=== PATIENT | male | born 1940 | race Caucasian/White ===

== ENCOUNTER 2020-01-30 07:55 | Day surgery (SDC) | payer OTHER ==
--- NOTE | 2020-01-29 10:01 | RAD REPORT ---
EXAM DESCRIPTION: RAD - Chest Pa And Lat (2 Views) - 01/29/2020 9:43 am CLINICAL HISTORY: PRE OP Chest pain. COMPARISON: Chest Single View dated 04/25/2016; CHEST PA AND LAT 2 VIEW dated 12/27/2014; CHEST PA AN D LAT 2 VIEW dated 09/17/2014; CHEST PA AND LAT 2 VIEW dated 03/05/2013 FINDINGS: The lungs are emphysematous but clear. The heart is upper limit of normal in size. No disp laced fractures. Cervical hardware plate. IMPRESSION: COPD.
[2020-01-29 10:25] LABS: Absolute Lymphocytes (CBC) 2.1 K/uL (0.7-4.9); Basophils % 0.5 % (0-1.3); Hematocrit 45.2 % (39.6-49.0); MPV 7.9 fL (7.6-11.3); RBC Red Blood Cell Count 4.86 M/uL (4.33-5.43)
[2020-01-29 10:39] LABS: Potassium 3.9 mmol/L (3.5-5.1)
--- NOTE | 2020-01-29 19:13 | EKG ---
Test Date: 2020-01-29 Test Time: 09:26:20 Practice Or Student Teacher: DIXIE MEASUREMENT RESULTS: Intervals: Rate: 65 CA: 164 QRSD: 94 QT: 428 QTc: 445 [place]: P: 72 CA: 164 QRS: 53 T: 118 INTERPRETIVE STATEMENTS: Sinus rhythm with frequent premature ventricular complexes Nonspecific ST and T wave abnormality Abnormal ECG Compared to ECG 04/26/2016 08:11:06 Ventricular premature complex(es) now present Sinus bradycardia no longer present Prolonged QT interval no longer present ST (T wave) deviation still present Electronically Signed On 01-29-20 19:12:39 ELECTRICAL MANUFACTURING TECHNICIAN by Juan Ramon Cueto
--- OUTSIDE RECORDS SUMMARY | 2020-01-30 07:58 | XMS REPORT | Continuity of Care Document ---
:1940 Author Organization [facility] t Address [address] [place] [address] Care Team Providers Name Role Phone Unavailable Unavailable Unavailable Problems This patient has no known problems. Allergies, Adverse Reactions, Alerts Allergy Allergy Status Severity Reaction(s) Onset Inactive Treating Comm ents Source Name Type Date Date Clinician Toni Adverse Active cough [facility] Bactrim Adverse Active Info Not [facility] DS Reaction Available [facility] Medications Ordered Filled Start Stop Current Ordering Indication Dosage Frequency Signature Comments Components Source Medication Medication Date Date Medication? Clinician (SIG) Name Name ProAir HFA ProAir HFA Yes Bobo [address] [facility] Atorvastati Atorvastati Yes Bobo [address] [facility] n Calcium n Calcium Marie [facility] Levothyroxi Levothyroxi Yes Bobo [address] [facility] ne Sodium ne Sodium Marie on an Rashad es - empty [facility] Amlodipine Amlodipine Yes Bobo [address] [facility] Besylate Besylate Marie [facility] Symbicort Symbicort 2019- No Bobo [address] [address] 05-14 Marie [facility] Procedures This patient has no known procedures. Encounters Start End Encounter Admission Attending Care Care Encounter Source Date/Time Date/Time Type Type Clinicians Facility Department ID 2020-01-16 2020-01-16 Outpatient [facility] [id number] [facility] 2018-06-20 2018-06-20 [facility] [id number] [facility] 11:30[facility]00 11:30:00 [facility] [employer] [place] [facility] Medicine Outpati ent Clinics 2018-03-28 2018-03-28 [facility] [id number] [facility] 14:30:00 14:30:00 [place] [employer] Alert s [facility] Medicine Outpati ent Clinics 2018-01-24 2018-01-24 [facility] [id number] [address] 08:45:00 08:45:00 [facility] Medicine Outpati ent Clinics 2017-11-21 2017-11-21 [facility] [id number] [address] 14:37:00 14:37:00 t [facility] Medicine Outpati ent Clinics 2017-11-20 2017-11-20 [facility] [id number] 13:09:00 13:09:00 t [facility] Medicine Outpati ent Clinics 2017-11-15 2017-11-15 [facility] [id number] [facility] 13:30:00 13:30:00 [facility] Outpati ent Clinics Results This patient has no known results.
--- OUTSIDE RECORDS SUMMARY | 2020-01-30 07:58 | XMS REPORT ---
:1940 Author Organization [facility] Address [address], 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 Problem Chronic J44.9 Active 43180250 obstructive pulmonary disease, unspecified COPD type Problem GERD without K21.9 Active 770421105 esophagitis Problem CAD in [place] I25.10 Active 2985288771058 artery Problem Hypothyroidism, E03.9 Active 82059830 unspecified type Problem Osteoarthritis of M15.9 Active 013498119 multiple joints, unspecified osteoarthritis type Problem Tobacco use F17.200 Active 935758220 disorder Problem Hyperlipidemia, E78.5 Active 14441108 unspecified hyperlipidemia type Problem 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, basal cell Problem Skin ulcer, L98.491 Active 76661340 limited to breakdown of skin Problem 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 [address], [facility] [place] [facility] Medicine [address], [address] [place] [address] Localized skin mass, lump, or swelling R22.9 IMMUNIZATIONS No Information SOCIAL HISTORY Tobacco Use: Social History Observation Description Date Details (start date - stop date) Current Smoker Sex Assigned At : Social History Observation Description Sex Assigned At Unknown PHQ9 Question Answer Notes Little interest or pleasure in doing things Not at all Feeling down, depressed, or hopeless Not at all Trouble falling or staying asleep or sleeping too much Not a t all Feeling tired or having little energy Not at all Poor appetite or overeating Not at all Feeling bad about yourself, or that you are a failure, or bhakta ve let Not at all yourself or your family down Trouble concentrating on things, such as reading the newspap er or Not at all watching television Moving or speaking so slowly that other people could have no ticed; Not at all or the opposite, being so fidgety or restless that you have been moving around a lot more than usual Total Score 0 Thoughts that you would be better off or of hurting you rself in Not at all some way Alcohol Screen Question Answer Notes Did you have a drink containing alcohol in the past year? No Points 0 Interpretation Negative Tobacco Use/Smoking Question Answer Notes Are you a current smoker Are you interested in quitting? Not ready to quit How many cigarettes a day do you smoke? 6-10 How often do you smoke cigarettes? every day REASON FOR REFERRAL No Information VITAL SIGNS Height 69 in Jan, Weight 148.9 lbs Jan, Temperature 97.1 degrees Fahrenheit Jan, BMI 21.99 kg/m2 Jan, Oximetry 97 % Jan, Respiratory Rate 17 /min Jan, Blood pressure systolic 125 mm Hg Jan, Blood pressure diastolic 75 mm Hg Jan, MEDICATIONS Medication SIG (Take, Route, Notes Start Date End Date Status Frequency, Duration) Entresto 49-51 MG 1 tablet Orally Twice a Active day Atorvastatin Calcium 20 MG 1 tablet Orally Once a Active day for 30 days ProAir HFA 108 (90 Base) 2 puffs as needed Active MCG/ACT Inhalation every 6 hrs for 30 days Levothyroxine Sodium 50 MCG 1 tablet on an empty Active stomach in the morning Orally Once a day for 30 days Fluticasone Propionate 50 1 spray in each nostril Active MCG/ACT Nasally Once a day Amlodipine Besylate 5 MG 1 tablet Orally Once a Active day for 30 days Symbicort 160-4.5 MCG/ACT 2 puffs Inhalation Twice Active a day for 30 days PROCEDURES No Information RESULTS No Results REASON FOR VISIT growth on left hand MEDICAL (GENERAL) HISTORY Type Description Date Medical History Chronic obstructive pulmonary disease, u nspecified COPD type Medical History CAD in [place] artery Medical History Chronic renal disease, stage III Medical History Hyperlipidemia, unspecified hyperlipidem ia type Medical History Essential hypertension Medical History Peripheral vascular disease Medical History 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 Medical History Osteoarthritis of multiple joints, unspe cified osteoarthritis type Medical History GERD without esophagitis Surgical History aortobifemoral bypass 1999 Surgical History c spine surgery Surgical History Replace disc neck 1997 Surgical History Veins in legs 2001 Surgical History Heart attack 2009 Goals Section No Information Health Concerns No Information MEDICAL EQUIPMENT No Information MENTAL STATUS No Information FUNCTIONAL STATUS No Information ASSESSMENTS Encounter Date Diagnosis Assessment Notes Treatment Notes Treatm ent Clinical Notes Jan, Mass of left hand Discussed (ICD-10 - R22.32) differential diagnosis with patient. Education given. Due to being symptomatic and changing in size will refer to general surgeon for further evaluation management and possible removal. Would benefit from pathology. Defer to surgeon. Patient and agreeable with plan. Jan, Localized skin mass, lump, or swelling (ICD-10 - R22.9) Jan, Other -- Medication reviewed and updated. -- Dietary and Lifestyle modifications addressed regarding diet, exercise and weight management. -- Treatment options, risks and benefits, alternate treatment options, side effects reviewed in detail with patient. -- Shared decision making was utilized with patient and verbal informed consent was obtained in the end. -- Advised on signs/symptoms to monitor and when to call clinic and/or visit the nearest ER. Patient verbalized understanding and agreeable with plan. PLAN OF TREATMENT Treatment Notes Assessment Notes Clinical Notes Mass of left hand Discussed differential diagnosis with kingsley harris. Education given. Due to being symptomat ic and changing in size will refer to general s urgeon for further evaluation management and possib le removal. Would benefit from pathology. Defer to surgeon. Patient and agreeable with plan. Next Appt Details 3 Months + AMW Reason: Provider Name:Bobo Marie, 2020-04-13 0 1:00:00 PM, [address], [place], [address], Provider Name:Bobo Marie, 2020-04-13 0 1:20:00 PM, [address], [place], [address], Insurance Providers Payer Name Payer Payer Insured Name Patient Coverage Covera ge End Address Phone Relationship to Start Date Cm e Insured [facility] [address] [address] [phone] self [facility] [id number] [id number]
[2020-01-30] MEDS ORDERED: Ringers Lactate 1,000 ML IV ONE (08:31)
[2020-01-30] MEDS ORDERED: CEFAZOLIN/SWI 1gm 0 GM/0 ML SYR ONE (08:31)
[2020-01-30] MEDS ORDERED: MIDAZOLAM HCL 2 MG/2 ML INJ ONE (08:52)
[2020-01-30] MEDS ORDERED: FENTANYL CITR 100 MCG/2 ML ONE (08:52)
[2020-01-30] MEDS ORDERED: propofoL 200 MG/20 ML VIAL IV ONE (08:52)
[2020-01-30] MEDS ORDERED: LIDOCAINE 2% MPF 5 ML VIAL ONE (08:52)
[2020-01-30] MEDS ORDERED: dexAMETHasone 10 MG/ML VIAL ONE (08:52)
[2020-01-30] MEDS ORDERED: KETOROLAC 30 MG/ML INJ ONE (09:29)
--- NOTE | 2020-01-30 10:05 | P.BOP ---
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
[2020-01-30 10:43] VITALS: O2SAT 97
--- NOTE | 2020-01-30 10:53 | OP ---
Date of Procedure: 01/30/2020 Surgeon: Shorty Mo MD Preoperative Diagnosis: Left hand ulcerated mass. Postoperative Diagnosis: Left hand squamous cell carcinoma. Procedure: Wide excision of squamous cell carcinoma with frozen section. Anesthesia: MAC plus local anesthetic. Complications: None. Findings: Squamous cell carcinoma, margin free of tumor for the pathology to Dr. Coreas. Indications: This is a case of a 79-year-old patient who comes with a mass of the left hand region, increasing in size given ulceration. He thought in the beginning it was mosquito bite. We explained to him that this may be more significant than that. We recommended to have a wide excision of the a june. The benefits, alternatives, and risks of excision fully explained which include, but not limite d to infection, bleeding, damage to adjacent structures, anesthesia complication, recurrence, VT, and even . The patient also understands this may not relieve the symptoms. He might need more serjio n one surgical intervention. He understood, signed a consent. The area of concern was marked by me and the patient in the holding room. Description Of Procedure: The patient was brought to the operating room, placed in supine position. Anesthesia was done without complication. Left hand was prepped and draped in sterile fashion. A t julio-out was called. Local anesthesia was applied followed by sharp incision of the skin with a sharp knife with at least 1 to 2 cm margin. Mass was excised. Marked for orientation, sent to the pathol ogist. The irrigation was done of the area. Hemostasis was obtained. Due to the large defect left behind, we closed most of the wound. Some of the wound have to be left to close by secondary intenti on. Pathology comes back as a squamous cell carcinoma, margin free of tumor. Area was irrigated. I ncision was closed with a mattress suture of 2-0 nylon. Once again, some of the area in the middle h ave to be left open since the tension is too much to close that area. The patient tolerated the proc edure well. The patient was sent to Recovery in stable condition. Diagnosis: Squamous surgical carcinoma, left hand. Procedure: Wide excision of squamous cell carcinoma, left hand. Disposition: Home. Activity: As tolerated. No heavy lifting. Plan: Follow up in my office in 1 week. Call for appointment [phone]. Medications: Tylenol No. 3 q.4 hours p.r.n. pain and Cipro 500 p.o. q.12. Keep the area dry for 48 hours, then may remove outer dressings and clean with soap and water and the n cover with sterile dressings. SANGITA/CHARLY Voice ID: [id number] Report ID: [id number]
[2020-01-30 12:02] VITALS: BP 139/73; TEMP 96.6
== END 2020-01-30 11:30 | disposition home or self-care (01) ==
LOC: OR 07:55
PROVIDERS: ATTEND Surgery
PROC: 0HBGXZZ Excision of Left Hand Skin, External Approach (ICD-10-PCS; principal; 2020-01-30 09:00)
DX: C44.629 Squamous cell carcinoma of skin of left upper limb, including shoulder (principal); J44.9 Chronic obstructive pulmonary disease, unspecified; I10 Essential (primary) hypertension; E78.00 Pure hypercholesterolemia, unspecified; I25.2 Old myocardial infarction; Z20.828 Contact with and (suspected) exposure to other viral communicable diseases; F17.210 Nicotine dependence, cigarettes, uncomplicated
CPT/HCPCS: 93005; 85025; 80048; 36415; 88331; 88332; 88305; 71046; 11626; U0002; J2704; J2250; J3010; J1100; J7120; J0690

== ENCOUNTER 2021-02-16 09:46 | Emergency (ER) | payer OTHER ==
--- OUTSIDE RECORDS SUMMARY | 2021-02-16 09:49 | XMS REPORT | Continuity of Care Document ---
:1940 Author Organization [facility] t Address [address] [place] [address] [address] [place] [address] Care Team Providers Name Role Phone Ige-Lo_J_AH Attending Clinician Unavailable Ige-Lo_Vesna_AH Admitting Clinician Unavailable Payers Payer Name Policy Type Policy Number Effective Date Expiration Date S radha [facility] [place] - [id number] 2019 2019 [employer] 00:00:00 00:00:00 (MEDICARE REPLACEMENT/ADVAN TAGE - HMO) Problems This patient has no known problems. Allergies, Adverse Reactions, Alerts Allergy Allergy Status Severity Reaction(s) Onset Inactive Treating Comm ents Source Name Type Date Date Clinician Toni Adverse Active cough [facility] Reaction [facility] Bactrim Adverse Active Info Not [facility] DS Reaction Available [facility] Medications Ordered Filled Start Stop Current Ordering Indication Dosage Frequency Signature Comments Components Source Medication Medication Date Date Medication? Clinician (SIG) Name Name ProAir HFA ProAir HFA Yes Bobo [address] [facility] Atorvastati Atorvastati Yes Bobo [address] [facility] n Calcium n Calcium Marie [facility] Levothyroxi Levothyroxi Yes Bobo [address] [facility] [facility] ne Sodium ne Sodium Marie on an Rashad es - empty [facility] stomach in l the [facility] Clinics Amlodipine Amlodipine Yes Bobo [address] [facility] Besylate Besylate Marie [facility] Symbicort Symbicort 2019- No Bobo [address] 05-14 Marie [facility] Procedures This patient has no known procedures. Encounters Start End Encounter Admission Attending Care Care Encounter Source Date/Time Date/Time Type Type Clinicians Facility Department ID 2020-12-01 2020-12-01 Outpatient [facility] [id number] [facility] 2020-09-16 2020-09-16 Outpatient [facility] [id number] [facility] 2020-08-21 2020-08-21 Outpatient [facility] [id number] [facility] 2020-06-18 2020-06-18 Outpatient [facility] [id number] [facility] 2020-06-18 2020-06-18 Outpatient [facility] [id number] [facility] 2020-05-15 2020-05-15 Outpatient [facility] [id number] [facility] 2020-04-13 2020-04-13 Outpatient [facility] [id number] [facility] 2020-02-19 2020-02-19 Outpatient [facility] [id number] [facility] 2020-01-16 2020-01-16 Outpatient [facility] [id number] [facility] 2019-04-03 2019-04-03 Outpatient [facility] VFP [id number] [place] 07:23:00 07:23:00 _J_AH [id number] Family Practic e 2018-06-20 2018-06-20 [facility] [id number] 11:30:00 11:30:[address] [place] [facility] Medicine Outpati ent Clinics 2018-03-28 2018-03-28 [facility] [id number] 14:30:00 14:30:00 [place] [facility] [facility] Medicine Outpati ent Clinics 2018-01-24 2018-01-24 [facility] [id number] 08:45:00 08:45:00 t [facility] Medicine Outpati ent Clinics 2017-11-21 2017-11-21 [facility] [id number] 14:37:00 14:37:00 t [facility] Medicine Outpati ent Clinics 2017-11-20 2017-11-20 [facility] [id number] [facility] 13:09:00 13:09:00 t [facility] Medicine Outpati ent Clinics 2017-11-15 2017-11-15 [facility] [id number] 13[facility]30:00 13:30:00 t [facility] Medicine Outpati ent Clinics Results This patient has no known results.
[2021-02-16] MEDS ORDERED: HYDROCODONE/APAP 10/325 TAB ONE (11:03)
[2021-02-16] MEDS ORDERED: BUPIVACAINE 0.5% PF 10 ML VIAL ONE (11:04)
[2021-02-16] MEDS ORDERED: LIDOCAINE 1% 20 ML MDV ONE (11:04)
--- NOTE | 2021-02-16 12:02 | RAD REPORT ---
EXAM DESCRIPTION: RAD - Hand Right 3 View - 02/16/2021 11:49 am CLINICAL HISTORY: Right hand pain FINDINGS: No fracture or dislocation is seen. Mild osteoarthritis first carpometacarpal joint. Mild osteoarthritis involves several DIP joints. Small bony/calcific density within soft tissue adjacent to third proximal phalanx
--- NOTE | 2021-02-16 13:08 | ER ---
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 Coronavirus screen: Vaccine status: Patient reports receiving the 2nd dose of the covid vaccine. Client denies travel out of the [place] in the last 14 days. At this time, the client does not indicate any symptoms associated with coronavirus-19. Ebola Screen: Patient denies travel to an Ebola-affected area in the 21 days before illness onset. Initial Sepsis Screen: Does the patient meet any 2 criteria? No. Patient's initial sepsis screen is negative. Does the patient have a suspected source of infection? Yes: Skin breakdown/wound. Risk Assessment: Do you want to hurt yourself or someone else? Patient reports no desire to harm self or others. Onset of symptoms was February 16, 2021. 10:41 Method Of Arrival: Ambulatory ll1 10:41 Acuity: TIFFANY 3 ll1 Triage Assessment: 11:13 Injury Description: Laceration sustained to right middle finger and right ring finger jd3 is 0.5 to 2.5 cm long, not bleeding. Historical: - Allergies: 10:43 Sulfa (Sulfonamide Antibiotics); ll1 - PMHx: 10:43 COPD; Hypertension; [place]; ll1 - PSHx: 10:43 None; ll1 - Immunization history:: Client reports receiving the 2nd dose of the Covid vaccine, Last tetanus immunization: up to date. - Social history:: Smoking status: Patient reports the use of cigarette tobacco products, smokes one-half pack cigarettes per day. Screenin:13 Abuse screen: Denies threats or abuse. Nutritional screening: No deficits noted. jd3 Tuberculosis screening: No symptoms or risk factors identified. Fall Risk Ambulatory Aid- None/Bed Rest/Nurse Assist (0 pts). Gait- Normal/Bed Rest/Wheelchair (0 pts) Mental Status- Oriented to own ability (0 pts). Total Campos Fall Scale indicates No Risk (0-24 pts). Assessment: 11:10 General: Appears in no apparent distress. uncomfortable, Behavior is calm, cooperative, jd3 appropriate for age. Pain: Complains of pain in right little finger and right middle finger Quality of pain is described as sharp, tender. Neuro: Level of Consciousness is awake, alert, obeys commands, Oriented to person, place, time, situation. Cardiovascular: Denies chest pain, Capillary refill < 3 seconds Patient's skin is warm and dry. Respiratory: Airway is patent Respiratory effort is even, unlabored, Respiratory pattern is regular, symmetrical, Denies cough, shortness of breath. GI: No signs and/or symptoms were reported involving the gastrointestinal system. : No signs and/or symptoms were reported regarding the genitourinary system. EENT: No signs and/or symptoms were reported regarding the EENT system. Derm: Skin is intact, Skin is dry, Skin is normal, Skin temperature is warm Wound noted right little finger and right middle finger Wound is small laceration noted to fifth and third finger on the right hand with small amount of bleeding that was stopped with pressure dressing. Musculoskeletal: Circulation, motion, and sensation intact. Range of motion: intact in all extremities. 12:41 Reassessment: Patient appears in no apparent distress at this time. Patient and/or jd3 family updated on plan of care and expected duration. Pain level reassessed. Patient is alert, oriented x 3, equal unlabored respirations, skin warm/dry/pink. provider at bedside suturing. 13:19 Reassessment: Patient appears in no apparent distress at this time. Patient and/or jd3 family updated on plan of care and expected duration. Pain level reassessed. Patient is alert, oriented x 3, equal unlabored respirations, skin warm/dry/pink. Vital Signs: 10:41 BP 163 / 69; Pulse 74; Resp 17; Temp 97.4; Pulse Ox 100% ; Weight 61.23 kg; Height 5 ll1 ft. 10 in. (177.80 cm); Pain 10; 13:19 Pulse 73; Resp 17 S; Pulse Ox 100% on R/A; jd3 10:41 Body Mass Index 19.37 (61.23 kg, 177.80 cm) ll1 ED Course: 10:10 Patient arrived in ED. am2 10:43 Triage completed. ll1 10:43 Arm band placed on Patient placed in an exam room, on a stretcher. ll1 10:48 Lucy Minor FNP-C [facility]. kb 10:48 Farshad Whitlock MD is Attending Physician. kb 10:58 Alex Arriola RN is Primary Nurse. jd3 11:14 Patient has correct armband on for positive identification. Bed in low position. Call jd3 light in reach. Side rails up X 1. Adult w/ patient. Pulse ox on. NIBP on. 11:50 Hand Right 3 View XRAY In Process Unspecified. EDMS 13:17 No provider procedures requiring assistance completed. Patient did not have IV access jd3 during this emergency room visit. 13:18 Dressings: Band aid x 1 right middle finger Tube gauze X 1; right little finger. jd3 Administered Medications: 11:10 Drug: [place] (HYDROcodone-acetaminophen) 10 mg-325 mg 1 tabs Route: PO; jd3 12:10 Follow up: Response: No adverse reaction; RASS: Alert and Calm (0) jd3 11:10 Drug: Lidocaine (1 %) 1 vials Volume: 20 ml; Route: Infiltration; jd3 12:10 Follow up: Response: No adverse reaction jd3 11:10 Drug: Marcaine (bupivacaine) (0.5 %) 1 vials Volume: 10 ml; Route: Infiltration; jd3 12:10 Follow up: Response: No adverse reaction jd3 Outcome: 13:07 Discharge ordered by . kb 13:19 Discharged to home ambulatory, with family. jd3 13:19 Condition: stable 13:19 Discharge instructions given to patient, family, Instructed on discharge instructions, follow up and referral plans. Demonstrated understanding of instructions, follow-up care. 13:20 Patient left the ED. jd3 Signatures: Dispatcher [employer] EDMS Lucy Minor FNP-C LINE MANAGER-Albertina Jones 2 Alex Arriola RN RN jd3 Manfred Urbina RN RN ll1 Corrections: (The following items were deleted from the chart) 13:19 11:10 Pain: Complains of pain in right middle finger and right ring finger Quality of jd3 pain is described as sharp, tender, jd3 13:19 11:10 Derm: Skin is intact, Skin is dry, Skin is normal, Skin temperature is warm Wound jd3 noted right hand Wound is small laceration noted to fourth and third finger on the right hand with small amount of bleeding that was stopped with pressure dressing. jd3
--- NOTE | 2021-02-16 13:08 | EDPHYS ---
Physician Documentation [facility] Name: Tucker Jackson Age: 80 yrs Sex: Male : 1940 Arrival Date: 02/16/2021 Time: 10:10 Bed 11 Private MD: ED Physician Farshad Whitlock HPI: 02/16 15:30 This 80 yrs old Male presents to ER via Ambulatory with complaints of Finger Injury. kb 15:34 The patient or guardian reports an abrasion, a laceration, pain, tenderness. The kb complaints affect the dorsal aspect of proximal phalanx of right index finger, dorsal aspect of proximal phalanx of right middle finger and dorsal aspect of distal phalanx of right little finger. Context: The problem was sustained at home, resulted from drone. Onset: The symptoms/episode began/occurred just prior to arrival. Modifying factors: The symptoms are alleviated by nothing, the symptoms are aggravated by movement. Associated signs and symptoms: The patient has no apparent associated signs or symptoms. Severity of symptoms: At their worst the symptoms were moderate, in the emergency department the symptoms are unchanged. The patient has not experienced similar symptoms in the past. The patient has not recently seen a physician. Pt was putting drone together and it started up cutting fingers . Historical: - Allergies: 10:43 Sulfa (Sulfonamide Antibiotics); ll1 - PMHx: 10:43 COPD; Hypertension; [place]; ll1 - PSHx: 10:43 None; ll1 - Immunization history:: Client reports receiving the 2nd dose of the Covid vaccine, Last tetanus immunization: up to date. - Social history:: Smoking status: Patient reports the use of cigarette tobacco products, smokes one-half pack cigarettes per day. ROS: 15:27 Constitutional: Negative for fever, chills, and weight loss. kb 15:27 Skin: Positive for laceration(s), of the right index finger, right middle finger and right little finger. 15:27 All other systems are negative. Exam: 15:28 Constitutional: This is a well developed, well nourished patient who is awake, alert, kb and in no acute distress. Head/Face: Normocephalic, atraumatic. ENT: Moist Mucous membranes Cardiovascular: Regular rate and rhythm with a normal S1 and S2. No gallops, murmurs, or rubs. No pulse deficits. Respiratory: Respirations even and unlabored. No increased work of breathing. Talking in full sentences MS/ Extremity: Pulses equal, no cyanosis. Neurovascular intact. Full, normal range of motion. Neuro: Awake and alert, GCS 15, oriented to person, place, time, and situation. Moves all extremities. Normal gait. Psych: Awake, alert, with orientation to person, place and time. Behavior, mood, and affect are within normal limits. 15:28 Skin: injury, abrasion(s), very small abrasion noted, of the dorsal aspect of proximal phalanx of right index finger, multiple small abrasions to right index finger, avulsion(s), partial avulsion of finger tip on right little finger, laceration(s), the wound is approximately 2 cm(s), of the dorsal aspect of proximal phalanx of right middle finger, the second wound is approximately 0.5 cm(s), of the dorsal aspect of proximal phalanx of right middle finger, that can be described as clean, no foreign body, linear. Vital Signs: 10:41 BP 163 / 69; Pulse 74; Resp 17; Temp 97.4; Pulse Ox 100% ; Weight 61.23 kg; Height 5 ll1 ft. 10 in. (177.80 cm); Pain 10/10; 13:19 Pulse 73; Resp 17 S; Pulse Ox 100% on R/A; jd3 10:41 Body Mass Index 19.37 (61.23 kg, 177.80 cm) ll1 Procedures: 11:10 Nerve block: (digital) of palmar aspect of proximal phalanx of right middle finger Medication: Lidocaine 1% without epinephrine Marcaine 0.5%, Amount: 4 mls were injected, Effect: the patient has resolution of the pain, Set up for procedure. Performed by Lucy SUTTON Patient tolerated well. 11:10 Nerve block: (digital) of palmar aspect of proximal phalanx of right little finger kb Medication: Lidocaine 1% without epinephrine Marcaine 0.5%, Amount: 4 mls were injected, Effect: the patient has resolution of the pain, Set up for procedure. Performed by Lucy USTTON Patient tolerated well. Laceration: 15:30 Wound Repair of 1.5cm ( 0.6in ) subcutaneous laceration to dorsal aspect of distal kb phalanx of right little finger. Skin/tissue flap noted.. Distal neuro/vascular/tendon intact. Anesthesia: Digital block administered with 4 mls of Lido/Marcaine. Wound prep: Extensive cleansing with hibiclenz by me, Wound irrigation with saline by me. Skin closed with 5 4-0 Prolene using simple sutures and sterile technique. Patient tolerated well. 15:30 Wound Repair of 0.5cm ( 0.2in ) subcutaneous laceration to dorsal aspect of proximal kb phalanx of right middle finger. Linear shaped.. Distal neuro/vascular/tendon intact. Anesthesia: Digital block administered with 4 mls of Lido/Marcaine. Wound prep: Extensive cleansing with hibiclenz by me, Wound irrigation with saline by me. Skin closed with 1 4-0 Prolene using simple sutures and sterile technique. Patient tolerated well. 15:30 Wound Repair of 2cm ( 0.8in ) subcutaneous laceration to dorsal aspect of proximal kb phalanx of right middle finger. Linear shaped.. Distal neuro/vascular/tendon intact. Anesthesia: Digital block administered with 4 mls of Lido/Marcaine. Wound prep: Extensive cleansing with hibiclenz by me, Wound irrigation with saline by me. Skin closed with 3 4-0 Prolene using simple sutures and sterile technique. Patient tolerated well. MDM: 10:48 Patient medically screened. kb 15:26 Data reviewed: vital signs, nurses notes. Data interpreted: Pulse oximetry: on room air kb is 100 %. Interpretation: normal. Counseling: I had a detailed discussion with the patient and/or guardian regarding: the historical points, exam findings, and any diagnostic results supporting the discharge/admit diagnosis, radiology results, the need for outpatient follow up, a family practitioner, to return to the emergency department if symptoms worsen or persist or if there are any questions or concerns that arise at home. 15:36 ED course: skin tear/flap noted to right middle finger that was unable to be sutured. kb Skin flap removed, wound cleaned and dressed. Tip of nail removed from avulsed tip of little finger. 02/16 10:53 Order name: Hand Right 3 View XRAY; Complete Time: 12:14 kb 02/16 10:53 Order name: Gloves, Sterile; Complete Time: 11:10 kb 02/16 10:53 Order name: Prolene, Sutures; Complete Time: 11:10 kb 02/16 10:53 Order name: Setup Suture Tray; Complete Time: 11:10 kb Administered Medications: 11:10 Drug: [place] (HYDROcodone-acetaminophen) 10 mg-325 mg 1 tabs Route: PO; jd3 12:10 Follow up: Response: No adverse reaction; RASS: Alert and Calm (0) jd3 11:10 Drug: Lidocaine (1 %) 1 vials Volume: 20 ml; Route: Infiltration; jd3 12:10 Follow up: Response: No adverse reaction jd3 11:10 Drug: Marcaine (bupivacaine) (0.5 %) 1 vials Volume: 10 ml; Route: Infiltration; jd3 12:10 Follow up: Response: No adverse reaction jd3 Disposition: 17:43 Co-signature as Attending Physician, Farshad Whitlock MD I agree with the assessment and rn plan of care. Attestation: The patient's history, exam findings, diagnostics, and a summary of any interventions or procedures was reviewed in detail with Lucy SUTTON. Disposition Summary: 02/16/21 13:07 Discharge Ordered Location: Home kb Condition: Stable kb Diagnosis - Laceration without foreign body of right middle finger without damage to nail kb - Abrasion of right index finger, initial encounter kb - Laceration without foreign body of right little finger with damage to nail, initial kb encounter Followup: kb - With: Emergency Department - When: As needed - Reason: Worsening of condition Followup: kb - With: Private Physician - When: 2 - 3 days - Reason: Recheck today's complaints, Continuance of care, Re-evaluation by your physician Discharge Instructions: - Discharge Summary Sheet kb - Laceration Care, Adult, [id number] kb - Abrasion, [id number] kb Forms: - Medication Reconciliation Form kb - Thank You Letter kb - Antibiotic Education kb - Prescription Opioid Use kb Signatures: Dispatcher [employer] Lucy Rowell FNP-C FNP-Farshad Florentino MD MD rn Davies, Jonathon, RN RN jManfred Contreras RN RN ll1
[2021-02-16 13:26] VITALS: BP 163/69; TEMP 97.4; O2SAT 100
== END 2021-02-16 13:20 | disposition home or self-care (01) ==
LOC: ER 09:46
PROC: 0JQJ0ZZ Repair Right Hand Subcutaneous Tissue and Fascia, Open Approach (ICD-10-PCS; principal; 2021-02-16)
DX: S61.216A Laceration without foreign body of right little finger without damage to nail, initial encounter (principal); S60.410A Abrasion of right index finger, initial encounter; I10 Essential (primary) hypertension; F17.210 Nicotine dependence, cigarettes, uncomplicated; Z88.2 Allergy status to sulfonamides
CPT/HCPCS: 64450; 99283

== ENCOUNTER 2021-07-26 08:38 | Emergency (ER) | payer OTHER ==
--- OUTSIDE RECORDS SUMMARY | 2021-07-26 08:41 | XMS REPORT | Continuity of Care Document ---
:1940 Author Organization [facility] t Address [address] [place] [address] Care Team Providers Name Role Phone Markos Marie Attending Clinician Unavailable Ige-Odunuga_J_AH Attending Clinician Unavailable Ige-Odunkeith_J_AH Admitting Clinician Unavailable Payers Payer Name Policy Type Policy Number Effective Date Expiration Date S radha [facility] - [id number] 2019 2019 [employer] 00:00:00 00:00:00 (MEDICARE REPLACEMENT/ADVAN TAGE - HMO) Problems This patient has no known problems. Allergies, Adverse Reactions, Alerts Allergy Allergy Status Severity Reaction(s) Onset Inactive Treating Comm ents Source Name Type Date Date Clinician Toni Adverse Active cough Common Inhibito Reaction [facility] r [facility] Bactrim Adverse Active Info Not Common DS Reaction Available [facility] t [facility] Medications Ordered Filled Start Stop Current Ordering Indication Dosage Frequency Signature Comments Components Source Medication Medication Date Date Medication? Clinician (SIG) Name Name ProAir HFA ProAir HFA Yes Bobo 2 puffs as Common Marie needed [facility] Atorvastati Atorvastati Yes Bobo 1 tablet Common n Calcium n Calcium Marie Spir it [facility] Levothyroxi Levothyroxi Yes Bobo 1 tablet Common ne Sodium ne Sodium Marie on an Spi rit empty - [facility] stomach in [facility] Amlodipine Amlodipine Yes Bobo 1 tablet Common Besylate Besylate Marie [facility] Symbicort Symbicort 2019- No Bobo 2 puffs Common 06-26 Marie Spirit 00:00 - [facility] :00 [facility] Procedures This patient has no known procedures. Encounters Start End Encounter Admission Attending Care Care Encounter Source Date/Time Date/Time Type Type Clinicians Facility Department ID 2021-06-30 Outpatient Marie, STLMLC STLMLC [id number] Common 09:53:00 Bobo [facility] 2021-06-14 Outpatient Marie, STLMLC STLMLC [id number] Common 16:00:01 Bobo [facility] 2021-06-07 Outpatient Marie, STLMLC STLMLC [id number] Common 14:36:01 Bobo [facility] 2021-03-10 Outpatient Marie, STLMLC STLMLC [id number] Common 14:37:39 Bobo [facility] 2021-03-10 Outpatient Marie, STLMLC STLMLC [id number] Common 14:02:27 Bobo [id number] [facility] 2021-03-10 Outpatient Marie, STLMLC STLMLC [id number] Common 13:34:30 Bobo [id number] [facility] 2021-03-10 Outpatient Marie, STLMLC STLMLC [id number] Common 13:00:43 Bobo [id number] [facility] 2021-03-10 Outpatient Marie, STLMLC STLMLC [id number] Common 12:34:37 Bobo [id number] [facility] 2021-03-10 Outpatient Marie, STLMLC STLMLC [id number] Common 12:33:55 Bobo 74800 [facility] 2021-03-10 Outpatient Marie, STLMLC STLMLC [id number] Common 12:10:58 Bobo 17700 [facility] 2021-07-02 2021-07-02 ambulatory STLMLC STLC [id number] Common 00:00:00 00:00:00 [facility] 2021-06-25 2021-06-25 ambulatory STLMLC STLMLC [id number] Common 00:00:00 00:00:00 [facility] 2021-06-16 2021-06-16 ambulatory STLMLC STLMLC [id number] Common 00:00:00 00:00:00 [facility] 2021-06-16 2021-06-16 ambulatory STLMLC STLMLC [id number] Common 00:00:00 00:00:00 [facility] 2021-06-16 2021-06-16 ambulatory STLMLC STLMLC [id number] Common 00:00:00 00:00:00 [facility] 2021-05-12 2021-05-12 ambulatory STLMLC STLMLC [id number] Common 00:00:00 00:00:00 [facility] 2021-03-03 2021-03-03 ambulatory STLMLC STLMLC [id number] Common 00:00:00 00:00:00 [facility] 2021-02-23 2021-02-23 ambulatory STLMLC STLMLC [id number] Common 00:00:00 00:00:00 [facility] 2020-12-01 2020-12-01 Outpatient STLMLC STLMLC [id number] Common 00:00:00 00:00:00 [facility] 2020-09-16 2020-09-16 Outpatient STLMLC STLMLC [id number] Common 00:00:00 00:00:00 [facility] 2020-08-21 2020-08-21 Outpatient STLMLC STLMLC [id number] Common 00:00:00 00:00:00 [facility] 2020-06-18 2020-06-18 Outpatient STLMLC STLMLC [id number] Common 00:00:00 00:00:00 [facility] 2020-06-18 2020-06-18 Outpatient STLMLC STLMLC [id number] Common 00:00:00 00:00:00 [facility] 2020-05-15 2020-05-15 Outpatient STLMLC STLMLC [id number] Common 00:00:00 00:00:00 [facility] 2020-04-13 2020-04-13 Outpatient STLMLC STLMLC [id number] Common 00:00:00 00:00:00 [facility] 2020-02-19 2020-02-19 Outpatient STLMLC STLMLC [id number] Common 00:00:00 00:00:00 [facility] 2020-01-16 2020-01-16 Outpatient STLMLC STLMLC [id number] Common 00:00:00 00:00:00 [facility] 2019-04-03 2019-04-03 Outpatient Ige-Odunuga VFP VFP [id number] [facility] 07:23:00 07:23:00 _J_AH [id number] 2018-06-20 2018-06-20 [facility] [id number] Common 11:30:00 11:30:[address] [facility] 2018-03-28 2018-03-28 [facility] [id number] Common 14:30:00 14:30:[address] [facility] 2018-01-24 2018-01-24 [facility] [id number] Common 08:45:00 08:45:[address] [facility] 2017-11-21 2017-11-21 [facility] [id number] Common 14:37:00 14:37:[address] [facility] 2017-11-20 2017-11-20 [facility] [id number] Common 13:09:00 13:09:[address] [facility] 2017-11-15 2017-11-15 [facility] [id number] Common 13:30:00 13:30:[address] [facility] Results This patient has no known results.
--- NOTE | 2021-07-26 09:41 | RAD REPORT ---
EXAM DESCRIPTION: RAD - Lumbar Spine 3 Views - 07/26/2021 9:32 am CLINICAL HISTORY: Back pain FINDINGS: No fracture or dislocation is seen. Mild anterior subluxation of L2 on L3. Moderate spondylosis involves lumbar spine consisting disc space narrowing and osteophytes. Mild scoliosis is present
[2021-07-26] MEDS ORDERED: LIDOCAINE 4% PATCH ONE (10:10)
[2021-07-26] MEDS ORDERED: dexAMETHasone 10 MG/ML VIAL ONE (10:10)
[2021-07-26] MEDS ORDERED: HYDROCODONE/APAP 10/325 TAB ONE (10:10)
--- NOTE | 2021-07-26 11:03 | ER ---
Nurse's Notes [facility] Name: Tucker Jackson Age: 80 yrs Sex: Male : 1940 Arrival Date: 07/26/2021 Time: 08:40 Bed 18 Private MD: Diagnosis: Lumbago with sciatica, left side Presentation: 07/26 09:09 Chief complaint: Patient states: "Yesterday I walked over to reach for a book and I vg1 have a pinched nerve and it hurts and my Left leg feels numb". Coronavirus screen: Vaccine status: Patient reports receiving the 2nd dose of the covid vaccine. Client denies travel out of the [place] in the last 14 days. Ebola Screen: Patient denies exposure to infectious person. Patient denies travel to an Ebola-affected area in the 21 days before illness onset. Initial Sepsis Screen: Does the patient meet any 2 criteria? No. Patient's initial sepsis screen is negative. Does the patient have a suspected source of infection? No. Patient's initial sepsis screen is negative. Risk Assessment: Do you want to hurt yourself or someone else? Patient reports no desire to harm self or others. Onset of symptoms was July 25, 2021. 09:09 Method Of Arrival: Wheelchair vg1 09:09 Acuity: TIFFANY 3 vg1 Triage Assessment: 09:13 General: Appears uncomfortable, Behavior is calm, cooperative. Pain: Complains of pain vg1 in lower back and Left leg Pain currently is 10 out of 10 on a pain scale. Musculoskeletal: Range of motion: limited in left leg Reports numbness in left leg. Historical: - Allergies: 09:13 Sulfa (Sulfonamide Antibiotics); vg1 - Home Meds: 09:15 levothyroxine oral [Active]; atorvastatin oral [Active]; amlodipine oral [Active]; vg1 ProAir HFA inhalation [Active]; Hydrochlorothiazide Oral [Active]; - PMHx: 09:13 Hypertension; vg1 09:15 COPD; Myocardial infarction; vg1 - Immunization history:: Client reports receiving the 2nd dose of the Covid vaccine. - Social history:: Smoking status: Patient reports the use of cigarette tobacco products, denies chronic smoking, but will smoke occasionally. Screenin:15 Abuse screen: Denies threats or abuse. Nutritional screening: No deficits noted. ap3 Tuberculosis screening: No symptoms or risk factors identified. Fall Risk None identified. Assessment: 10:15 General: Appears uncomfortable. ap3 Vital Signs: 09:09 BP 149 / 87; Pulse 86; Resp 16; Pulse Ox 100% on R/A; Weight 60.78 kg; Height 5 ft. 10 vg1 in. (177.80 cm); Pain 10/10; 09:09 Body Mass Index 19.23 (60.78 kg, 177.80 cm) vg1 ED Course: 08:40 Patient arrived in ED. rg4 09:02 Hermann Billings, SHARAD is PHCP. pm1 09:02 Farshad Whitlock MD is Attending Physician. pm1 09:13 Triage completed. vg1 09:13 Arm band placed on. vg1 09:33 Lumbar Spine (3 Views) XRAY In Process Unspecified. EDMS 09:36 Albertina Pulido, RN is Primary Nurse. ap3 10:15 Patient has correct armband on for positive identification. Bed in low position. Call ap3 light in reach. Side rails up X2. Adult w/ patient. Pulse ox on. NIBP on. Door closed. Noise minimized. 10:15 No provider procedures requiring assistance completed. ap3 11:52 Patient did not have IV access during this emergency room visit. ap3 Administered Medications: 10:14 Drug: Slovan (HYDROcodone-acetaminophen) 10 mg-325 mg 1 tabs Route: PO; ap3 11:51 Follow up: Response: No adverse reaction ap3 10:14 Drug: Decadron (dexamethasone) 10 mg Route: IM; Site: right deltoid; ap3 11:51 Follow up: Response: No adverse reaction ap3 10:15 Drug: Lidoderm Patch 5 % (700 mg/patch) 1 patches Route: Topical; Site: affected area; ap3 11:52 Follow up: Response: No adverse reaction ap3 Medication: 10:15 VIS not applicable for this client. ap3 Outcome: 11:02 Discharge ordered by . pm1 11:52 Discharged to home ambulatory. ap3 11:52 Condition: good 11:52 Discharge instructions given to patient, Instructed on discharge instructions, follow up and referral plans. medication usage, Demonstrated understanding of instructions, follow-up care, medications, Prescriptions given X 3. 12:08 Patient left the ED. ap3 Signatures: Dispatcher [employer] EDMS Hermann Billings, ENVIRONMENTAL SERVICES ASSISTANT ENVIRONMENTAL SERVICES ASSISTANT pm1 Mai Watt rg4 Albertina Pulido RN RN ap3 Vanda Watt RN RN vg1 Corrections: (The following items were deleted from the chart) 09:13 PMHx: COPD; vg1 vg1 09:13 PMHx: [place]; vg1 vg1
--- NOTE | 2021-07-26 11:03 | EDPHYS ---
Physician Documentation [facility] Name: Tucker Jackson Age: 80 yrs Sex: Male : 1940 Arrival Date: 07/26/2021 Time: 08:40 Bed 18 Private MD: ED Physician Farshad Whitlock HPI: 07/26 09:15 This 80 yrs old Male presents to ER via Wheelchair with complaints of Back Pain, pm1 Numbness Of Leg. 09:15 The patient presents with pain that is chronic, with no known mechanism of injury. The pm1 symptoms are located in the low back. Onset: The symptoms/episode began/occurred Chronically worse. The pain radiates to the lateral aspect of left thigh. Associated signs and symptoms: Pertinent negatives: abdominal pain, fever, headache, incontinence. The problem was sustained when bending over. Modifying factors: The patient symptoms are alleviated by remaining still, the patient symptoms are aggravated by movement. Severity of symptoms: in the emergency department the symptoms are actually worse. The patient has experienced similar episodes in the past, chronically. The patient has not recently seen a physician. 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 Reports numbness to left lateral thigh. Negative for incontinence of urine and stool. Patient with history of chronic low back pain. Historical: - Allergies: 09:13 Sulfa (Sulfonamide Antibiotics); vg1 - Home Meds: 09:15 levothyroxine oral [Active]; atorvastatin oral [Active]; amlodipine oral [Active]; vg1 ProAir HFA inhalation [Active]; Hydrochlorothiazide Oral [Active]; - PMHx: 09:13 Hypertension; vg1 09:15 COPD; Myocardial infarction; vg1 - Immunization history:: Client reports receiving the 2nd dose of the Covid vaccine. - Social history:: Smoking status: Patient reports the use of cigarette tobacco products, denies chronic smoking, but will smoke occasionally. ROS: 07/27 09:15 Constitutional: Negative for fever, chills, and weight loss, Cardiovascular: Negative pm1 for chest pain, palpitations, and edema, Respiratory: Negative for shortness of breath, cough, wheezing, and pleuritic chest pain. MS/Extremity: Negative for injury and deformity, Skin: Negative for injury, rash, and discoloration. Back: Positive for of the low back area. Neuro: Positive for numbness, of the lateral aspect of left thigh. All other systems are negative. Exam: 07/26 09:15 Constitutional: This is a well developed, well nourished patient who is awake, alert, pm1 and in no acute distress. Head/Face: Normocephalic, atraumatic. Skin: Warm, dry with normal turgor. Normal color with no rashes, no lesions, and no evidence of cellulitis. MS/ Extremity: Pulses equal, no cyanosis. Neurovascular intact. Full, normal range of motion. Cardiovascular: Exam negative for acute changes, Rate: normal, Rhythm: regular, Pulses: Heart sounds: normal. Respiratory: Exam negative for acute changes, the patient does not display signs of respiratory distress, Respirations: normal, Breath sounds: are clear throughout. Back: pain, that is moderate, of the left buttocks, palpation reproduces radiation of pain to left lateral thigh. Neuro: Exam negative for acute changes, Orientation: is normal, Mentation: is normal, Motor: moves all fours. Vital Signs: 09:09 BP 149 / 87; Pulse 86; Resp 16; Pulse Ox 100% on R/A; Weight 60.78 kg; Height 5 ft. 10 vg1 in. (177.80 cm); Pain 10/10; 09:09 Body Mass Index 19.23 (60.78 kg, 177.80 cm) vg1 MDM: 09:15 Patient medically screened. pm1 11:00 Data reviewed: vital signs. Data interpreted: Pulse oximetry: on room air is 100 %. pm1 Interpretation: normal. 11:01 Counseling: I had a detailed discussion with the patient and/or guardian regarding: the pm1 historical points, exam findings, and any diagnostic results supporting the discharge/admit diagnosis, radiology results, the need for outpatient follow up, to return to the emergency department if symptoms worsen or persist or if there are any questions or concerns that arise at home. 11:43 ED course: [place] reviewed. pm1 07/26 09:15 Order name: Lumbar Spine (3 Views) XRAY; Complete Time: 09:47 pm1 Administered Medications: 10:14 Drug: Mission (HYDROcodone-acetaminophen) 10 mg-325 mg 1 tabs Route: PO; ap3 11:51 Follow up: Response: No adverse reaction ap3 10:14 Drug: Decadron (dexamethasone) 10 mg Route: IM; Site: right deltoid; ap3 11:51 Follow up: Response: No adverse reaction ap3 10:15 Drug: Lidoderm Patch 5 % (700 mg/patch) 1 patches Route: Topical; Site: affected area; ap3 11:52 Follow up: Response: No adverse reaction ap3 Disposition: 07/27 09:56 Co-signature as Attending Physician, Farshad Whitlock MD. rn Disposition Summary: 07/26/21 11:02 Discharge Ordered Location: Home pm1 Problem: new pm1 Symptoms: have improved pm1 Condition: Stable pm1 Diagnosis - Lumbago with sciatica, left side pm1 Followup: pm1 - With: Emergency Department - When: As needed - Reason: Worsening of condition Followup: pm1 - With: Private Physician - When: 2 - 3 days - Reason: Recheck today's complaints, Continuance of care, Re-evaluation by your physician Discharge Instructions: - Discharge Summary Sheet pm1 - Sciatica pm1 Forms: - Medication Reconciliation Form pm1 - Thank You Letter pm1 - Antibiotic Education pm1 - Prescription Opioid Use pm1 Prescriptions: - Lidoderm 5 % Topical adhesive patch,medicated - apply 1 patch by TRANSDERMAL route once daily As needed; 10 patch; Refills: 0, pm1 Product Selection Permitted - Medrol (John) 4 mg Oral Tablets, Dose Pack - take 1 tablet by ORAL route as directed - follow package instructions; 1 pm1 packet; Refills: 0, Product Selection Permitted - Tylenol-Codeine #3 300 mg-30 mg Oral - take 2 tablet by ORAL route every 6 hours As needed; 20 tablet; Refills: 0, pm1 Product Selection Permitted Signatures: Dispatcher [employer] Farshad Avendano MD MD rn Marinas, Patrick, SHARAD ENGINEERING DIRECTOR pm1 Albertina Pulido RN RN ap3 Garcia, Victoria, RN RN vg1 Corrections: (The following items were deleted from the chart) 07/26 09:16 09:13 PMHx: COPD; vg1 vg1 09:16 09:13 PMHx: [place]; vg1 vg1
[2021-07-26 12:20] VITALS: BP 149/87; O2SAT 100
== END 2021-07-26 12:08 | disposition home or self-care (01) ==
LOC: ER 08:38
DX: M54.42 Lumbago with sciatica, left side (principal); Z88.2 Allergy status to sulfonamides; I10 Essential (primary) hypertension; J44.9 Chronic obstructive pulmonary disease, unspecified; I25.2 Old myocardial infarction; F17.210 Nicotine dependence, cigarettes, uncomplicated
CPT/HCPCS: 72100; J2001; J1100; 96372; 99283

== ENCOUNTER 2022-04-24 04:23 | Observation (INO) | payer OTHER ==
--- OUTSIDE RECORDS SUMMARY | 2022-04-24 04:27 | XMS REPORT | Continuity of Care Document ---
:[address] [facility] t Address [address] [place] [address]. [address] [place] [address] Care Team Providers Name Role Phone Bobo Marie Primary Care Physician Bobo Marie Attending Clinician Unavailable JUMA ASTUDILLO Attending Clinician Unavailable Juma Youssef Attending Clinician Cleo Attending Clinician Unavailable Cleo Admitting Clinician Unavailable Payers Payer Name Policy Type Policy Number Effective Date Expiration Date S cathylouis DALTON SHERMAN [facility] [id number] 2021 O 00:00:00 [employer] [id number] 2020 Common Sp tiffanie ing Medicare 00:00:00 - [facility] Cigna-HealthSpr [id number] 2020 Common Sp tiffanie ing Medicare 00:00:00 - [facility] Cig-HealthSpr [id number] 2020 Common Sp tiffanie ing Medicare 00:00:00 - [facility] [id number] 2019 2019 - [employer] 00:00:00 00:00:00 (MEDICARE REPLACEMENT/ADV ANTAGE - HMO) Problems Condition Condition Condition Status Onset Resolution Last Treating Co mments Source Name Details Category Date Date Treatment Clinician Date No known No known Disease Unive rs active active ity of problems problems [facility] Branch 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 type [id number] Osteoarthr Problem Active Co mmon itis of Spirit multiple - CHI joints, [facility] Medical osteoarthr Center itis type [id number] Essential Problem Active Comm on hypertensi Spirit on - [facility] [id number] Peripheral Problem Active Co mmon vascular Spirit disease [facility] [id number] +5th digit Problem Active Co mmon eff Spirit 11/14/19*Ch - CHI ronic renal [facility] disease, Medical stage III Center [id number] CAD in Problem Active Commo n [address] [place] [facility] artery [facility] [id number] Hx of skin Problem Active Co mmon cancer, Spirit basal cell [facility] [id number] Tobacco Problem Active Commo n use Spirit disorder [facility] [id number] 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 [facility] myelopathy Medica [facility] [place] [id number] Chronic Problem Active Commo n systolic Spirit congestive - CHI heart failure [facility] [id number] GERD Problem Active Common without Spirit esophagiti - CHI s [facility] [id number] Skin Problem Active Common ulcer, Spirit limited to - CHI breakdown St of skin [facility] [id number] Squamous Problem Active Comm on cell Spirit cancer of - CHI skin of St left hand [facility] [id number] Allergic Problem Active Commo n rhinitis, Spirit unspecifie - CHI d St seasonalit [facility] y, Medical unspecifie Center d trigger [id number] Hypothyroi Problem Active Com mon dism, Spirit unspecifie - CHI d type [facility] Allergies, Adverse Reactions, Alerts Allergy Allergy Status Severity Reaction(s) Onset Inactive Treating Comm ents Source Name Type Date Date Clinician SULFAMET DRUG Active Unknown-Cmnt Un jeremias HOXAZOLE INGREDI 08-02 ity of 00:00: [address] Sulfamet Drug Active Unknown - Unive rs hoxazole Allergy See comments 08-02 i ty of 00:00: [address] sulfamet sulfamet Active Unknown Commo n hoxazole hoxazole Spirit / / - CHI trimetho trimetho [facility] Social History Social Habit Start Date Stop Date Quantity Comments Source History of Current Smoker Common Spi rit - Tobacco Use [facility] Sex Assigned At Common Sp tiffanie - [facility] Exposure to 2021-07-23 2021-08-02 Not sure [facility] SARS-CoV-2 00:00:00 14:23:00 [facility] (event) [place] Smoking Status Start Date Stop Date Source Unknown if ever smoked [facility] Current Smoker 2021-07-02 00:00:00 Common Spiri t - [facility] Medications Ordered Filled Start Stop Current Ordering Indication Dosage Frequency Signature Comments Components Source Medication Medication Date Date Medication? Clinician (SIG) Name Name Cyclobenzap Cyclobenzap No 1{table QD Cyclobenza rine HCl 5 rine HCl 5 6-24 t_at_be muriel HCl MG MG 00:00: dtime_a 5 MG 00 s_neede d} HYDROcodone 2021- No 1{tbl} 1 tablet, Univers -acetaminop 08-02 Oral, ity of hen (NORCO 21:15: 20:44 ONCE, 1 Kali as 5) 5-325 mg 00 :00 dose, On [facility] tablet 1 [facility] tablet 08/02/21 at 1615, SOHA ketorolac 2021- No 30mg 30 mg, Unive rs (TORADOL) 08-02 Intramuscu ity of injection 21:15: 20:44 lar, ONCE, [place] 30 mg 00 :00 1 dose, On Medical [facility] 08/02/21 at 1615, Routine acetaminoph 2021-0 2021- No 4647 1{tbl} Take 1 U nivers en-codeine 08-02 tablet by ity of 300-30 mg 00:00: 04:59 mouth [place] tablet 00 :00 every 6 Medical (six) Branch hours as needed for Pain (scale 4-6) for up to 7 days. Indication s: acute pain ProAir HFA ProAir HFA Yes Bobo 2 puffs as Common Marie needed [facility] Atorvastati Atorvastati Yes Bobo 1 tablet Common n Calcium n Calcium Marie Spir [facility] Levothyroxi Levothyroxi Yes Bobo 1 tablet Common ne Sodium ne Sodium Marie on an Spi rit empty - CHI stomach in [facility] Amlodipine Amlodipine Yes Bobo 1 tablet Common Besylate Besylate Marie [facility] Levothyroxi Levothyroxi No QD Levothyrox ne Sodium ne Sodium ine Sodium 50 MCG 50 MCG 50 MCG ProAir HFA ProAir HFA No 2{puffs QID ProAir HFA 108 (90 108 (90 _as_nee 108 (90 Base) Base) ded} Base) MCG/ACT MCG/ACT MCG/ACT Fluticasone Fluticasone No 1{spray QD Fluticason Propionate Propionate _in_eac e 50 MCG/ACT 50 MCG/ACT h_nostr Propionate il} 50 MCG/ACT Symbicort Symbicort No 2{puffs BID Symbicort 160-4.5 160-4.5 } 160-4.5 MCG/ACT MCG/ACT MCG/ACT Omeprazole Omeprazole No QD Omeprazole 20 MG 20 MG 20 MG amLODIPine amLODIPine No 1{table QD amLODIPine Besylate 10 Besylate 10 t} Besylate MG MG 10 MG Entresto Entresto No 1{table BID Entresto 49-51 MG 49-51 MG t} 49-51 MG Atorvastati Atorvastati No 1{table QD Atorvastat n Calcium n Calcium t} in Calcium 40 MG 40 MG 40 MG hydroCHLORO hydroCHLORO No 1{capsu QD hydroCHLOR thiazide thiazide le_in_t Othiazide 12.5 MG 12.5 MG he_morn 12.5 MG ing} Levothyroxi Levothyroxi No QD Levothyrox ne Sodium ne Sodium ine Sodium 50 MCG 50 MCG 50 MCG ProAir HFA ProAir HFA No 2{puffs QID ProAir HFA 108 (90 108 (90 _as_nee 108 (90 Base) Base) ded} Base) MCG/ACT MCG/ACT MCG/ACT Fluticasone Fluticasone No 1{spray QD Fluticason Propionate Propionate _in_eac e 50 MCG/ACT 50 MCG/ACT h_nostr Propionate il} 50 MCG/ACT Symbicort Symbicort No 2{puffs BID Symbicort 160-4.5 160-4.5 } 160-4.5 MCG/ACT MCG/ACT MCG/ACT Omeprazole Omeprazole No QD Omeprazole 20 MG 20 MG 20 MG amLODIPine amLODIPine No 1{table QD amLODIPine Besylate 10 Besylate 10 t} Besylate MG MG 10 MG Entresto Entresto No 1{table BID Entresto 49-51 MG 49-51 MG t} 49-51 MG Atorvastati Atorvastati No 1{table QD Atorvastat n Calcium n Calcium t} in Calcium 40 MG 40 MG 40 MG hydroCHLORO hydroCHLORO No 1{capsu QD hydroCHLOR thiazide thiazide le_in_t Othiazide 12.5 MG 12.5 MG he_morn 12.5 MG ing} Entresto Entresto No 1{table BID Entresto 49-51 MG 49-51 MG t} 49-51 MG Symbicort Symbicort No 2{puffs BID Symbicort 160-4.5 160-4.5 } 160-4.5 MCG/ACT MCG/ACT MCG/ACT amLODIPine amLODIPine No 1{table QD amLODIPine Besylate 10 Besylate 10 t} Besylate MG MG 10 MG hydroCHLORO hydroCHLORO No 1{capsu QD hydroCHLOR thiazide thiazide le_in_t Othiazide 12.5 MG 12.5 MG he_morn 12.5 MG ing} ProAir HFA ProAir HFA No 2{puffs QID ProAir HFA 108 (90 108 (90 _as_nee 108 (90 Base) Base) ded} Base) MCG/ACT MCG/ACT MCG/ACT Omeprazole Omeprazole No QD Omeprazole 20 MG 20 MG 20 MG Levothyroxi Levothyroxi No QD Levothyrox ne Sodium ne Sodium ine Sodium 50 MCG 50 MCG 50 MCG Atorvastati Atorvastati No 1{table QD Atorvastat n Calcium n Calcium t} in Calcium 40 MG 40 MG 40 MG Fluticasone Fluticasone No 1{spray QD Fluticason Propionate Propionate _in_eac e 50 MCG/ACT 50 MCG/ACT h_nostr Propionate il} 50 MCG/ACT Entresto Entresto No 1{table BID Entresto 49-51 MG 49-51 MG t} 49-51 MG Symbicort Symbicort No 2{puffs BID Symbicort 160-4.5 160-4.5 } 160-4.5 MCG/ACT MCG/ACT MCG/ACT amLODIPine amLODIPine No 1{table QD amLODIPine Besylate 10 Besylate 10 t} Besylate MG MG 10 MG hydroCHLORO hydroCHLORO No 1{capsu QD hydroCHLOR thiazide thiazide le_in_t Othiazide 12.5 MG 12.5 MG he_morn 12.5 MG ing} ProAir HFA ProAir HFA No 2{puffs QID ProAir HFA 108 (90 108 (90 _as_nee 108 (90 Base) Base) ded} Base) MCG/ACT MCG/ACT MCG/ACT Omeprazole Omeprazole No QD Omeprazole 20 MG 20 MG 20 MG Levothyroxi Levothyroxi No QD Levothyrox ne Sodium ne Sodium ine Sodium 50 MCG 50 MCG 50 MCG Atorvastati Atorvastati No 1{table QD Atorvastat n Calcium n Calcium t} in Calcium 40 MG 40 MG 40 MG Fluticasone Fluticasone No 1{spray QD Fluticason Propionate Propionate _in_eac e 50 MCG/ACT 50 MCG/ACT h_nostr Propionate il} 50 MCG/ACT Entresto Entresto No Entresto 49-51 MG 49-51 MG 49-51 MG ProAir HFA ProAir HFA No 2{puffs QID ProAir HFA 108 (90 108 (90 _as_nee 108 (90 Base) Base) ded} Base) MCG/ACT MCG/ACT MCG/ACT amLODIPine amLODIPine No 1{table QD amLODIPine Besylate 10 Besylate 10 t} Besylate MG MG 10 MG Levothyroxi Levothyroxi No QD Levothyrox ne Sodium ne Sodium ine Sodium 50 MCG 50 MCG 50 MCG Symbicort Symbicort No 2{puffs BID Symbicort 160-4.5 160-4.5 } 160-4.5 MCG/ACT MCG/ACT MCG/ACT hydroCHLORO hydroCHLORO No 1{capsu QD hydroCHLOR thiazide thiazide le_in_t Othiazide 12.5 MG 12.5 MG he_morn 12.5 MG ing} Omeprazole Omeprazole No QD Omeprazole 20 MG 20 MG 20 MG Fluticasone Fluticasone No 1{spray QD Fluticason Propionate Propionate _in_eac e 50 MCG/ACT 50 MCG/ACT h_nostr Propionate il} 50 MCG/ACT Atorvastati Atorvastati No 1{table QD Atorvastat n Calcium n Calcium t} in Calcium 40 MG 40 MG 40 MG Entresto Entresto No Entresto 49-51 MG 49-51 MG 49-51 MG ProAir HFA ProAir HFA No 2{puffs QID ProAir HFA 108 (90 108 (90 _as_nee 108 (90 Base) Base) ded} Base) MCG/ACT MCG/ACT MCG/ACT amLODIPine amLODIPine No 1{table QD amLODIPine Besylate 10 Besylate 10 t} Besylate MG MG 10 MG Levothyroxi Levothyroxi No QD Levothyrox ne Sodium ne Sodium ine Sodium 50 MCG 50 MCG 50 MCG Symbicort Symbicort No 2{puffs BID Symbicort 160-4.5 160-4.5 } 160-4.5 MCG/ACT MCG/ACT MCG/ACT hydroCHLORO hydroCHLORO No 1{capsu QD hydroCHLOR thiazide thiazide le_in_t Othiazide 12.5 MG 12.5 MG he_morn 12.5 MG ing} Omeprazole Omeprazole No QD Omeprazole 20 MG 20 MG 20 MG Fluticasone Fluticasone No 1{spray QD Fluticason Propionate Propionate _in_eac e 50 MCG/ACT 50 MCG/ACT h_nostr Propionate il} 50 MCG/ACT Atorvastati Atorvastati No 1{table QD Atorvastat n Calcium n Calcium t} in Calcium 40 MG 40 MG 40 MG Entresto Entresto No Entresto 49-51 MG 49-51 MG 49-51 MG ProAir HFA ProAir HFA No 2{puffs QID ProAir HFA 108 (90 108 (90 _as_nee 108 (90 Base) Base) ded} Base) MCG/ACT MCG/ACT MCG/ACT amLODIPine amLODIPine No 1{table QD amLODIPine Besylate 10 Besylate 10 t} Besylate MG MG 10 MG Levothyroxi Levothyroxi No QD Levothyrox ne Sodium ne Sodium ine Sodium 50 MCG 50 MCG 50 MCG Symbicort Symbicort No 2{puffs BID Symbicort 160-4.5 160-4.5 } 160-4.5 MCG/ACT MCG/ACT MCG/ACT hydroCHLORO hydroCHLORO No 1{capsu QD hydroCHLOR thiazide thiazide le_in_t Othiazide 12.5 MG 12.5 MG he_morn 12.5 MG ing} Omeprazole Omeprazole No QD Omeprazole 20 MG 20 MG 20 MG Fluticasone Fluticasone No 1{spray QD Fluticason Propionate Propionate _in_eac e 50 MCG/ACT 50 MCG/ACT h_nostr Propionate il} 50 MCG/ACT Atorvastati Atorvastati No 1{table QD Atorvastat n Calcium n Calcium t} in Calcium 40 MG 40 MG 40 MG Entresto Entresto No Entresto 49-51 MG 49-51 MG 49-51 MG ProAir HFA ProAir HFA No 2{puffs QID ProAir HFA 108 (90 108 (90 _as_nee 108 (90 Base) Base) ded} Base) MCG/ACT MCG/ACT MCG/ACT amLODIPine amLODIPine No 1{table QD amLODIPine Besylate 10 Besylate 10 t} Besylate MG MG 10 MG Levothyroxi Levothyroxi No QD Levothyrox ne Sodium ne Sodium ine Sodium 50 MCG 50 MCG 50 MCG Symbicort Symbicort No 2{puffs BID Symbicort 160-4.5 160-4.5 } 160-4.5 MCG/ACT MCG/ACT MCG/ACT hydroCHLORO hydroCHLORO No 1{capsu QD hydroCHLOR thiazide thiazide le_in_t Othiazide 12.5 MG 12.5 MG he_morn 12.5 MG ing} Omeprazole Omeprazole No QD Omeprazole 20 MG 20 MG 20 MG Fluticasone Fluticasone No 1{spray QD Fluticason Propionate Propionate _in_eac e 50 MCG/ACT 50 MCG/ACT h_nostr Propionate il} 50 MCG/ACT Atorvastati Atorvastati No 1{table QD Atorvastat n Calcium n Calcium t} in Calcium 40 MG 40 MG 40 MG Entresto Entresto No 1{table BID Entresto 49-51 MG 49-51 MG t} 49-51 MG Atorvastati Atorvastati No 1{table QD Atorvastat n Calcium n Calcium t} in Calcium 40 MG 40 MG 40 MG Levothyroxi Levothyroxi No QD Levothyrox ne Sodium ne Sodium ine Sodium 50 MCG 50 MCG 50 MCG Symbicort Symbicort No 2{puffs BID Symbicort 160-4.5 160-4.5 } 160-4.5 MCG/ACT MCG/ACT MCG/ACT Omeprazole Omeprazole No QD Omeprazole 20 MG 20 MG 20 MG amLODIPine amLODIPine No 1{table QD amLODIPine Besylate 10 Besylate 10 t} Besylate MG MG 10 MG Entresto Entresto No Entresto 49-51 MG 49-51 MG 49-51 MG Fluticasone Fluticasone No 1{spray QD Fluticason Propionate Propionate _in_eac e 50 MCG/ACT 50 MCG/ACT h_nostr Propionate il} 50 MCG/ACT hydroCHLORO hydroCHLORO No 1{capsu QD hydroCHLOR thiazide thiazide le_in_t Othiazide 12.5 MG 12.5 MG he_morn 12.5 MG ing} ProAir HFA ProAir HFA No 2{puffs QID ProAir HFA 108 (90 108 (90 _as_nee 108 (90 Base) Base) ded} Base) MCG/ACT MCG/ACT MCG/ACT Entresto Entresto No 1{table BID Entresto 49-51 MG 49-51 MG t} 49-51 MG Atorvastati Atorvastati No 1{table QD Atorvastat n Calcium n Calcium t} in Calcium 40 MG 40 MG 40 MG Levothyroxi Levothyroxi No QD Levothyrox ne Sodium ne Sodium ine Sodium 50 MCG 50 MCG 50 MCG Symbicort Symbicort No 2{puffs BID Symbicort 160-4.5 160-4.5 } 160-4.5 MCG/ACT MCG/ACT MCG/ACT Omeprazole Omeprazole No QD Omeprazole 20 MG 20 MG 20 MG amLODIPine amLODIPine No 1{table QD amLODIPine Besylate 10 Besylate 10 t} Besylate MG MG 10 MG Entresto Entresto No Entresto 49-51 MG 49-51 MG 49-51 MG Fluticasone Fluticasone No 1{spray QD Fluticason Propionate Propionate _in_eac e 50 MCG/ACT 50 MCG/ACT h_nostr Propionate il} 50 MCG/ACT hydroCHLORO hydroCHLORO No 1{capsu QD hydroCHLOR thiazide thiazide le_in_t Othiazide 12.5 MG 12.5 MG he_morn 12.5 MG ing} ProAir HFA ProAir HFA No 2{puffs QID ProAir HFA 108 (90 108 (90 _as_nee 108 (90 Base) Base) ded} Base) MCG/ACT MCG/ACT MCG/ACT Entresto Entresto No 1{table BID Entresto 49-51 MG 49-51 MG t} 49-51 MG Atorvastati Atorvastati No 1{table QD Atorvastat n Calcium n Calcium t} in Calcium 40 MG 40 MG 40 MG Levothyroxi Levothyroxi No QD Levothyrox ne Sodium ne Sodium ine Sodium 50 MCG 50 MCG 50 MCG Symbicort Symbicort No 2{puffs BID Symbicort 160-4.5 160-4.5 } 160-4.5 MCG/ACT MCG/ACT MCG/ACT Omeprazole Omeprazole No QD Omeprazole 20 MG 20 MG 20 MG amLODIPine amLODIPine No 1{table QD amLODIPine Besylate 10 Besylate 10 t} Besylate MG MG 10 MG Entresto Entresto No Entresto 49-51 MG 49-51 MG 49-51 MG Fluticasone Fluticasone No 1{spray QD Fluticason Propionate Propionate _in_eac e 50 MCG/ACT 50 MCG/ACT h_nostr Propionate il} 50 MCG/ACT hydroCHLORO hydroCHLORO No 1{capsu QD hydroCHLOR thiazide thiazide le_in_t Othiazide 12.5 MG 12.5 MG he_morn 12.5 MG ing} ProAir HFA ProAir HFA No 2{puffs QID ProAir HFA 108 (90 108 (90 _as_nee 108 (90 Base) Base) ded} Base) MCG/ACT MCG/ACT MCG/ACT hydroCHLORO hydroCHLORO No 1{capsu QD hydroCHLOR thiazide thiazide le_in_t Othiazide 12.5 MG 12.5 MG he_morn 12.5 MG ing} ProAir HFA ProAir HFA No 2{puffs QID ProAir HFA 108 (90 108 (90 _as_nee 108 (90 Base) Base) ded} Base) MCG/ACT MCG/ACT MCG/ACT Omeprazole Omeprazole No QD Omeprazole 20 MG 20 MG 20 MG amLODIPine amLODIPine No 1{table QD amLODIPine Besylate 10 Besylate 10 t} Besylate MG MG 10 MG Levothyroxi Levothyroxi No QD Levothyrox ne Sodium ne Sodium ine Sodium 50 MCG 50 MCG 50 MCG Symbicort Symbicort No 2{puffs BID Symbicort 160-4.5 160-4.5 } 160-4.5 MCG/ACT MCG/ACT MCG/ACT Fluticasone Fluticasone No 1{spray QD Fluticason Propionate Propionate _in_eac e 50 MCG/ACT 50 MCG/ACT h_nostr Propionate il} 50 MCG/ACT Entresto Entresto No Entresto 49-51 MG 49-51 MG 49-51 MG Entresto Entresto No 1{table BID Entresto 49-51 MG 49-51 MG t} 49-51 MG Atorvastati Atorvastati No 1{table QD Atorvastat n Calcium n Calcium t} in Calcium 40 MG 40 MG 40 MG Symbicort Symbicort No 2{puffs BID Symbicort 160-4.5 160-4.5 } 160-4.5 MCG/ACT MCG/ACT MCG/ACT Entresto Entresto No 1{table BID Entresto 49-51 MG 49-51 MG t} 49-51 MG Levothyroxi Levothyroxi No QD Levothyrox ne Sodium ne Sodium ine Sodium 50 MCG 50 MCG 50 MCG Omeprazole Omeprazole No QD Omeprazole 20 MG 20 MG 20 MG Atorvastati Atorvastati No 1{table QD Atorvastat n Calcium n Calcium t} in Calcium 40 MG 40 MG 40 MG ProAir HFA ProAir HFA No 2{puffs QID ProAir HFA 108 (90 108 (90 _as_nee 108 (90 Base) Base) ded} Base) MCG/ACT MCG/ACT MCG/ACT amLODIPine amLODIPine No 1{table QD amLODIPine Besylate 10 Besylate 10 t} Besylate MG MG 10 MG Fluticasone Fluticasone No 1{spray QD Fluticason Propionate Propionate _in_eac e 50 MCG/ACT 50 MCG/ACT h_nostr Propionate il} 50 MCG/ACT Levothyroxi Levothyroxi No QD Levothyrox ne Sodium ne Sodium ine Sodium 50 MCG 50 MCG 50 MCG Symbicort Symbicort No 2{puffs BID Symbicort 160-4.5 160-4.5 } 160-4.5 MCG/ACT MCG/ACT MCG/ACT Atorvastati Atorvastati No 1{table QD Atorvastat n Calcium n Calcium t} in Calcium 40 MG 40 MG 40 MG hydroCHLORO hydroCHLORO No 1{capsu QD hydroCHLOR thiazide thiazide le_in_t Othiazide 12.5 MG 12.5 MG he_morn 12.5 MG ing} ProAir HFA ProAir HFA No 2{puffs QID ProAir HFA 108 (90 108 (90 _as_nee 108 (90 Base) Base) ded} Base) MCG/ACT MCG/ACT MCG/ACT Entresto Entresto No 1{table BID Entresto 49-51 MG 49-51 MG t} 49-51 MG Fluticasone Fluticasone No 1{spray QD Fluticason Propionate Propionate _in_eac e 50 MCG/ACT 50 MCG/ACT h_nostr Propionate il} 50 MCG/ACT Omeprazole Omeprazole No QD Omeprazole 20 MG 20 MG 20 MG amLODIPine amLODIPine No 1{table QD amLODIPine Besylate 10 Besylate 10 t} Besylate MG MG 10 MG Symbicort Symbicort 2019- No Bobo 2 puffs Common 05-14 Marie Spirit 00:00 - CHI :00 [facility] Immunizations Ordered Immunization Filled Immunization Date Status Commen ts Source Name Name Brynn PAYTONID-19 Modernjoseph COVID-19 2020-05-25 Completed [facility] Vaccine Vaccine 14:24:00 - [facility] Moderna COVID-19 Moderna COVID-19 2020-05-25 Completed [facility] Vaccine Vaccine 14:24:00 - [facility] Moderna COVID-19 Moderna COVID-19 2020-05-25 Completed [facility] Vaccine Vaccine 14:24:00 - [facility] Moderna COVID-19 Moderna COVID-19 2020-05-25 Completed [facility] m[facility] Vaccine Vaccine 14:24:00 - [facility] Moderna COVID-19 Moderna COVID-19 2020-05-25 Completed [facility] mmon [facility] Vaccine Vaccine 14:24:00 - [facility] Moderna COVID-19 Moderna COVID-19 2020-05-25 Completed [facility] m[facility] Vaccine Vaccine 14:24:00 - [facility] Moderna COVID-19 Moderna COVID-19 2020-05-25 Completed [facility] Vaccine Vaccine 14:24:00 - [facility] Moderna COVID-19 Moderna COVID-19 2020-05-25 Completed [facility] Vaccine Vaccine 14:24:00 - [facility] Moderna COVID-19 Moderna COVID-19 2020-05-25 Completed [facility] Vaccine Vaccine 14:24:00 - [facility] Moderna COVID-19 Moderna COVID-19 2020-05-25 Completed [facility] Vaccine Vaccine 14:24:00 - [facility] Moderna COVID-19 Moderna COVID-19 2020-05-25 Completed [facility] Vaccine Vaccine 14:24:00 - [facility] Moderna COVID-19 Moderna COVID-19 2020-05-25 Completed [facility] Vaccine Vaccine 14:24:00 - [facility] Moderna COVID-19 Moderna COVID-19 2020-05-25 Completed [facility] Vaccine Vaccine 14:24:00 - [facility] Moderna COVID-19 Moderna COVID-19 2020-05-25 Completed [facility] Vaccine Vaccine 14:24:00 - [facility] Moderna COVID-19 Moderna COVID-19 2020-04-29 Completed [facility] Vaccine Vaccine 14:23:00 - [facility] Moderna COVID-19 Moderna COVID-19 2020-04-29 Completed [facility] Vaccine Vaccine 14:23:00 - [facility] Moderna COVID-19 Moderna COVID-19 2020-04-29 Completed [facility] Vaccine Vaccine 14:23:00 - [facility] Moderna COVID-19 Moderna COVID-19 2020-04-29 Completed [facility] Vaccine Vaccine 14:23:00 - [facility] Moderna COVID-19 Moderna COVID-19 2020-04-29 Completed [facility] Vaccine Vaccine 14:23:00 - [facility] Moderna COVID-19 Moderna COVID-19 2020-04-29 Completed [facility] Vaccine Vaccine 14:23:00 - [facility] Moderna COVID-19 Moderna COVID-19 2020-04-29 Completed [facility] Vaccine Vaccine 14:23:00 - [facility] Moderna COVID-19 Moderna COVID-19 2020-04-29 Completed [facility] Vaccine Vaccine 14:23:00 - [facility] Moderna COVID-19 Moderna COVID-19 2020-04-29 Completed [facility] Vaccine Vaccine 14:23:00 - [facility] Moderna COVID-19 Moderna COVID-19 2020-04-29 Completed [facility] Vaccine Vaccine 14:23:00 - [facility] Moderna COVID-19 Moderna COVID-19 2020-04-29 Completed [facility] Vaccine Vaccine 14:23:00 - [facility] Moderna COVID-19 Moderna COVID-19 2020-04-29 Completed [facility] Vaccine Vaccine 14:23:00 - [facility] Moderna COVID-19 Moderna COVID-19 2020-04-29 Completed [facility] Vaccine Vaccine 14:23:00 - [facility] Moderna COVID-19 Moderna COVID-19 2020-04-29 Completed [facility] Vaccine Vaccine 14:23:00 [facility] Vital Signs Vital Name Observation Time Observation Value Comments Source Systolic blood 2021-08-02 21:41:00 145 mm[Hg] [facility] Diastolic blood 2021-08-02 21:41:00 90 mm[Hg[facility] Heart rate 2021-08-02 21:41:00 58 /min [facility] Respiratory rate 2021-08-02 21:41:00 18 /min [facility] Oxygen saturation in 2021-08-02 21:41:00 98 /min [facility] Arterial blood by [facility] Pulse oximetry Branch Body temperature 2021-08-02 19:30:00 37.17 Donna [facility] height 2021-08-02 19:30:00 177.8 cm [facility] Body weight 2021-08-02 19:30:00 62.143 kg [facility] BMI 2021-08-02 19:30:00 19.66 kg/m2 [facility] height 2021-07-02 07:50:00 69 [in_i] [facility] weight 2021-07-02 07:50:00 135 [lb_av] [facility] temperature 2021-07-02 07:50:00 98 [degF] [facility] bmi 2021-07-02 07:50:00 19.93 kg/m2 [facility] height 2021-06-16 09:00:00 69 [in_i] [facility] [facility] weight 2021-06-16 09:00:00 134.5 [lb_av] [facility] temperature 2021-06-16 09:00:00 96.8 [degF] [facility] bmi 2021-06-16 09:00:00 19.86 kg/m2 [facility] oximetry 2021-06-16 09:00:00 97 % [facility] respiratory rate 2021-06-16 09:00:00 17 /min Comm on [facility] blood pressure 2021-06-16 09:00:00 135 mm[Hg] [facility] blood pressure 2021-06-16 09:00:00 72 mm[Hg] [facility] diastolic [facility] height 2021-06-16 09:00:00 69 [in_i] Common [facility] weight 2021-06-16 09:00:00 134.5 [lb_av] Common [facility] temperature 2021-06-16 09:00:00 96.8 [degF] Common S pirit [facility] bmi 2021-06-16 09:00:00 19.86 kg/m2 Common [facility] oximetry 2021-06-16 09:00:00 97 % Common [facility] respiratory rate 2021-06-16 09:00:00 17 /min Comm on [facility] blood pressure 2021-06-16 09:00:00 135 mm[Hg] Common [facility] - systolic [facility] blood pressure 2021-06-16 09:00:00 72 mm[Hg] [facility] height 2021-03-03 14:20:00 69 [in_i] Common [facility] weight 2021-03-03 14:20:00 132.7 [lb_av] [facility] temperature 2021-03-03 14:20:00 97.7 [degF] Common S pirit [facility] bmi 2021-03-03 14:20:00 19.59 kg/m2 [facility] 2021-03-03 14:20:00 95 % Common [facility] respiratory rate 2021-03-03 14:20:00 16 /min Comm on [facility] blood pressure 2021-03-03 14:20:00 132 mm[Hg] Common [facility] - systolic [facility] blood pressure 2021-03-03 14:20:00 65 mm[Hg] [facility] height 2020-12-01 14:20:00 69 [in_i] Common [facility] weight 2020-12-01 14:20:00 132 [lb_av] Common [facility] temperature 2020-12-01 14:20:00 98 [degF] Common [facility] bmi 2020-12-01 14:20:00 19.49 kg/m2 [facility] blood pressure 2020-12-01 14:20:00 130 mm[Hg] [facility] blood pressure 2020-12-01 14:20:00 76 mm[Hg] Common [facility] - diastolic [facility] height 2020-09-16 14:10:00 69 [in_i] Common [facility] weight 2020-09-16 14:10:00 132.5 [lb_av] Common [facility] temperature 2020-09-16 14:10:00 97.9 [degF] Common [facility] bmi 2020-09-16 14:10:00 19.56 kg/m2 [facility] oximetry 2020-09-16 14:10:00 97 % [facility] respiratory rate 2020-09-16 14:10:00 16 /min Comm on [facility] blood pressure 2020-09-16 14:10:00 134 mm[Hg] Common [facility] - systolic [facility] blood pressure 2020-09-16 14:10:00 75 mm[Hg] Common [facility] diastolic [facility] Procedures Procedure Date / Time Performed Performing Clinician [facility] CONSENT/REFUSAL FOR 2021-08-02 19:23:00 Doctor Unassigned, No Un [facility] DIAGNOSIS AND Name [facility] TREATMENT Encounters Start End Encounter Admission Attending Care Care Encounter Source Date/Time Date/Time Type Type Clinicians Facility Department ID 2021-06-30 Outpatient Marie, [facility] [id number] Common 09:53:00 [facility] 2021-06-14 Outpatient Marie, STLMLC STLMLC [id number] Common 16:00:01 Bobo [facility] 2021-06-07 Outpatient Marie, STLMLC STLMLC [id number] Common 14:36:01 Bobo [facility] 2021-03-10 Outpatient Marie, STLMLC STLMLC [id number] Common 14:37:39 Bobo [facility] 2021-03-10 Outpatient Marie, STLMLC STLMLC [id number] Common 14:02:27 Bobo [facility] 2021-03-10 Outpatient Marie, STLMLC STLMLC [id number] Common 13:34:30 Bobo [facility] 2021-03-10 Outpatient Marie, STLMLC STLMLC [id number] Common 13:00:43 Bobo [id number] [facility] 2021-03-10 Outpatient Marie, STLMLC STLMLC [id number] Common 12:34:37 Bobo [id number] [facility] 2021-03-10 Outpatient Marie, STLMLC STLMLC [id number] Common 12:33:55 Bobo [id number] [facility] 2021-03-10 Outpatient Marie, STLMLC STLC [id number] Common 12:10:58 Bobo [id number] [facility] 2021-08-06 2021-08-06 (TEL) STLC STLC [id number] Co mmon 00:00:00 00:00:00 [facility] 2021-08-02 2021-08-02 Emergency X RIDDLE, [facility] ERT [id number] [facility] 14:31:00 16:42:00 JUMA leonardo [facility] 2021-08-02 2021-08-02 Emergency [place], [facility] [id number] Univers 14:31:00 16:42:00 Juma MARSHALL [id number] alexander [facility] [id number] [facility] [id number] [address] 2021-07-30 2021-07-30 (TEL) STLMLC STLMLC [id number] Co mmon 00:00:00 00:00:00 [facility] 2021-07-27 2021-07-27 (TEL) STLMLC STLMLC [id number] Co mmon 00:00:00 00:00:00 [facility] 2021-07-02 2021-07-02 OFFICE STLMLC STLMLC [id number] Co mmon 00:00:00 00:00:00 VISIT EST Spir it PT LEVEL 3 - [facility] 2021-06-25 2021-06-25 (TEL) STLMLC STLMLC [id number] Co mmon 00:00:00 00:00:00 [facility] 2021-06-16 2021-06-16 OFFICE STLMLC STLMLC [id number] Co mmon 00:00:00 00:00:00 VISIT [facility] PT - CHI LEVEL 4 [facility] 2021-06-16 2021-06-16 (TEL) STLMLC STLMLC [id number] Co mmon 00:00:00 00:00:00 [facility] 2021-06-16 2021-06-16 SUB ANNUAL STLMLC STLMLC [id number] Common 00:00:00 00:00:00 MCR [facility] VISIT [facility] 2021-05-12 2021-05-12 (TEL) STLMLC STLMLC [id number] Co mmon 00:00:00 00:00:00 [facility] 2021-03-03 2021-03-03 OFFICE STLMLC STLMLC [id number] Co mmon 00:00:00 00:00:00 VISIT [facility] ESTAB PT - CHI LEVEL 4 [facility] 2021-02-23 2021-02-23 (TEL) STLMLC STLMLC [id number] Co mmon 00:00:00 00:00:00 [facility] 2020-12-01 2020-12-01 OFFICE STLMLC STLMLC [id number] Co mmon 00:00:00 00:00:00 VISIT EST Spir it PT LEVEL 3 - [facility] 2020-09-16 2020-09-16 OFFICE STLMLC STLMLC [id number] Co mmon 00:00:00 00:00:00 VISIT [facility] ESTAB PT - [facility] LEVEL 4 [facility] 2020-08-21 2020-08-21 (TEL) STLMLC STLMLC [id number] Co mmon 00:00:00 00:00:00 [facility] 2020-06-18 2020-06-18 Outpatient STLMLC STLMLC [id number] Common 00:00:00 00:00:00 [facility] 2020-06-18 2020-06-18 Outpatient STLMLC STLMLC [id number] Common 00:00:00 00:00:00 [facility] 2020-05-15 2020-05-15 Outpatient STLMLC STLMLC [id number] Common 00:00:00 00:00:00 [facility] 2020-04-13 2020-04-13 Outpatient STLMLC STLMLC [id number] Common 00:00:00 00:00:00 [facility] 2020-02-19 2020-02-19 Outpatient STLMLC STLMLC [id number] Common 00:00:00 00:00:00 [facility] 2020-01-16 2020-01-16 Outpatient STLMLC STLMLC [id number] Common 00:00:00 00:00:00 [facility] 2019-04-03 2019-04-03 Outpatient [place] VFP VFP [id number] [facility] 07:23:00 07:23:00 _J_AH [id number] Family Practic e 2018-06-20 2018-06-20 [facility] [id number] Common 11:30:00 11:30:[address] [facility] 2018-03-28 2018-03-28 [facility] [id number] Common 14:30:00 14:30:[address] [facility] 2018-01-24 2018-01-24 [facility] [id number] Common 08:45:00 08:45:[address] [facility] 2017-11-21 2017-11-21 [facility] [id number] Common 14:37:00 14:37:[address] [facility] 2017-11-20 2017-11-20 [facility] [id number] Common 13:09:00 13:09:[address] [facility] 2017-11-15 2017-11-15 [facility] [id number] Common 13:30:00 13:30:[address] [facility] Results This patient has no known results.
[2022-04-24] MEDS ORDERED: dexAMETHasone 10 MG/ML VIAL ONE (04:50)
[2022-04-24] MEDS ORDERED: Levofloxacin500mg IV 500 MG/100 ML BAG IV ONE (04:50)
[2022-04-24] MEDS ORDERED: NA CHLORIDE 0.9% 1,000 ML ONE (04:50)
[2022-04-24] MEDS ORDERED: FAMOTIDINE 20 MG/2 ML VIAL IV ONE (04:50)
[2022-04-24 05:19] LABS: Hematocrit 40.6 % (39.6-49.0); Lymphocytes % 14.8 % (15.3-44.8); MCV 92.5 fL (80-100); MPV 6.5 fL (7.6-11.3); RBC Red Blood Cell Count 4.39 M/uL (4.33-5.43)
[2022-04-24 05:25] LABS: Protime INR 1.01
[2022-04-24 05:41] LABS: Albumin 3.5 g/dL (3.4-5.0); Bilirubin Direct 0.1 mg/dL (0-0.2); Bilirubin Total 0.3 mg/dL (0.2-1.0); Potassium 4.4 mmol/L (3.5-5.1); Protein, Total 6.6 g/dL (6.4-8.2); Troponin High Sensitivity 30.6 pg/mL (<58.9)
[2022-04-24 06:08] LABS: SARS-COV-2 RT PCR NEGATIVE (NEGATIVE)
[2022-04-24] MEDS ORDERED: LEVALBUTEROL 1.25 MG/3 ML NEB ONE (06:17)
[2022-04-24 08:22] VITALS: BMI 19.6
[2022-04-24] MEDS ORDERED: ONDANSETRON 4 MG/2 ML VIAL IV PRN (08:23)
[2022-04-24] MEDS: IPRATROPIUM BROM 0.5MG/2.5ML NEB PRN ×3 (08:28→16:50)
[2022-04-24] MEDS: ALBUTEROL 2.5 MG/3 ML NEB SOL NEB PRN ×3 (08:28→16:50)
[2022-04-24] MEDS ORDERED: ACETAMINOPHEN 325 MG TABLET PO PRN (08:43)
[2022-04-24] MEDS ORDERED: Levofloxacin 750mg IV 750 MG/150 ML BAG IV SCH (09:00)
[2022-04-24] MEDS: FAMOTIDINE 20 MG/2 ML VIAL IV SCH (09:03)
[2022-04-24] MEDS: METHYLPREDNISOLONE 125 MG INJ IV SCH ×2 (09:03→16:55)
[2022-04-24] MEDS: ASPIRIN EC 81 MG TAB PO SCH (09:05)
[2022-04-24] MEDS ORDERED: ATORVASTATIN 20 MG TAB PO SCH (21:00)
[2022-04-24] MEDS: SACUBITRIL/VALSARTAN 49/51 MG TAB PO SCH (21:02)
--- NOTE | 2022-04-24 21:55 | P.SSS ---
Patient History Date of Service: 04/24/22 Reason for admission: DYSPNEA History of Present Illness: JORDAN IS COPD PATIENT WHO COMES WITH DYSPNEA. IMPROVES AFTER A DOSE OF STEROIDS. SHE HAS NO PAIN. NO FEVER. Allergies Sulfa (Sulfonamide Antibiotics) Allergy (Verified 04/24/22 07:44) tingling, deep muscle pain sulfamethoxazole [From Septra] Adverse Reaction (Intermediate, Verified 04/24/22 07:44) Anaphylaxis trimethoprim [From Octra] Adverse Reaction (Intermediate, Verified 04/24/22 07:44) Anaphylaxis Home medications list reviewed: Yes Home Medications: Albuterol Sulfate [Proair Hfa] 8.5 gm IH TID 04/24/22 Amlodipine Besylate 5 mg PO DAILY 04/24/22 Atorvastatin Calcium [Lipitor*] 20 mg PO BEDTIME 04/24/22 Fluticasone Propionate [Flovent Diskus] 50 mcg IH BID 04/24/22 Fluticasone/Umeclidin/Vilanter [Trelegy Ellipta 100-62.5-25] 1 each IH DAILY 04/24/22 Ipratropium/Albuterol Sulfate [Iprat-Albut 0.5-3(2.5) mg/3 ml] 3 ml IH QID 04/24/22 Levothyroxine Sodium [Levothyroxine] 25 mcg PO DAILY 04/24/22 Sacubitril/Valsartan [Entresto 49 mg-51 mg Tablet] 1 each PO BID 04/24/22 - Past Medical/Surgical History Has patient received pneumonia vaccine in the past: Yes Diabetic: No -: HTN -: COPD -: KIDNEY DX STAGE 3 ? -: vein bypass in lower legs -: appendectomy -: disk in back of neck -: [place] [id number] - Social History Smoking Status: Current every day smoker Alcohol use: No CD- Drugs: No Caffeine use: Yes Place of Residence: Home Physical Examination - Vital Signs Temperature: 96.9 F Blood Pressure: 110/71 Pulse: 83 Respirations: 20 Pulse Ox (%): 96 - Physical Exam General: Oriented x3, Mild distress HEENT: Atraumatic, PERRLA, Mucous membr. moist/pink, EOMI, Sclerae nonicteric Neck: Supple, 2+ carotid pulse no bruit, No LAD, Without JVD or thyroid abnorm ality Respiratory: Diminished, Rhonchi/gurgles Cardiovascular: Regular rate/rhythm, Normal S1 S2 Gastrointestinal: Normal bowel sounds, No tenderness Musculoskeletal: No tenderness Integumentary: No rashes Neurological: Normal gait, Normal speech, Normal strength at 5/5 x4 extr, Normal tone, Normal affect Lymphatics: No axilla or inguinal lymphadenopathy - Diagnosis (Problem(s)) (1) COPD (chronic obstructive pulmonary disease) Current Visit: Yes Status: Chronic Plan: STEROIDS, NEBS HE MAY NEED STEROIDS ORALLY. HE HAS FAILED TRELEGY INHALER AND NEBS. PROGNOSIS GUARDED. Qualifiers: COPD type: COPD with acute exacerbation Qualified Code(s): J44.1 - Chronic obstructive pulmonary disease with (acute) exacerbation - Disposition Disposition: ROUTINE DISCHARGE
[2022-04-25] MEDS: METHYLPREDNISOLONE 125 MG INJ IV SCH ×2 (01:25→09:06)
[2022-04-25 04:10] LABS: Absolute Lymphocytes (CBC) 0.9 K/uL (0.7-4.9); Hematocrit 37.4 % (39.6-49.0); Lymphocytes % 8.1 % (15.3-44.8); MPV 6.8 fL (7.6-11.3); RBC Red Blood Cell Count 4.07 M/uL (4.33-5.43)
[2022-04-25 04:22] LABS: Potassium 4.1 mmol/L (3.5-5.1)
[2022-04-25 05:18] LABS: Blood Morphology Comment NOT SEEN (NOT SEEN); Platelet Estimate ADEQ
[2022-04-25] MEDS ORDERED: LEVOTHYROXINE SOD 0.025 MG TAB PO SCH (06:30)
[2022-04-25 08:35] VITALS: BP 113/66; TEMP 97.4
[2022-04-25] MEDS ORDERED: AMLODIPINE 5 MG TAB PO SCH (09:00)
[2022-04-25] MEDS ORDERED: Fluticasone/Umeclidin/Vilanter (Trelegy Ellipta) 100-62.5-25 Blst.W.Dev IH SCH (09:00)
[2022-04-25] MEDS ORDERED: ENOXAPARIN 40 MG/0.4 ML SQ SCH (09:00)
[2022-04-25] MEDS: SACUBITRIL/VALSARTAN 49/51 MG TAB PO SCH (09:05)
[2022-04-25] MEDS: FAMOTIDINE 20 MG/2 ML VIAL IV SCH (09:05)
[2022-04-25] MEDS: ASPIRIN EC 81 MG TAB PO SCH (09:06)
--- NOTE | 2022-04-25 09:48 | RAD REPORT ---
EXAM DESCRIPTION: XR Chest, 1 View CLINICAL HISTORY: The patient is 81 years old and is Male; COPD;Cough TECHNIQUE: Frontal view of the chest. COMPARISON: No relevant prior studies available. FINDINGS: LUNGS: The lungs are hyperinflated. Coarse interstitial markings are present. Superimpos ed opacity within the right lower lobe is present. PLEURAL SPACE: Unremarkable. No pneumothorax. HEART: Unremarkable. No cardiomegaly. MEDIASTINUM: Unremarkable. BONES/JOINTS: Multilevel degenerative change of the spine is present. VASCULATURE: Atherosclerosis of the aorta is present. UPPER ABDOMEN: Unremarkable as visualized. IMPRESSION: Emphysematous changes of lungs with likely right lower lobe atelectasis. Electronically signed by: Juany Jolly MD 04/24/2022 5:18 AM CDT Due to temporary technical issues with the PACS/Fluency reporting system, reports are being signed by the in house radiologists without review as a courtesy to insure prompt reporting. The interpreting radiologist is fully responsible for the content of the report.
[2022-04-25 10:06] VITALS: O2SAT 96
--- NOTE | 2022-04-25 12:44 | P.CNS ---
Date of Consult: 04/25/22 Reason for Consult: COPD exacerbation Chief Complaint: Shortness of breath History of Present Illness: Patient is 81 years of age active smoker became worse over the weekend developed worsening dyspnea cough patient is on portable oxygen and trilogy at home f eeling better since admission denies any fever or chills Allergies Sulfa (Sulfonamide Antibiotics) Allergy (Verified 04/24/22 07:44) tingling, deep muscle pain sulfamethoxazole [From Octra] Adverse Reaction (Intermediate, Verified 04/24/22 07:44) Anaphylaxis trimethoprim [From Octra] Adverse Reaction (Intermediate, Verified 04/24/22 07:44) Anaphylaxis Home Medications: Albuterol Sulfate [Proair Hfa] 8.5 gm IH TID 04/24/22 Amlodipine Besylate 5 mg PO DAILY 04/24/22 Atorvastatin Calcium [Lipitor*] 20 mg PO BEDTIME 04/24/22 Fluticasone/Umeclidin/Vilanter [Trelegy Ellipta 100-62.5-25] 1 each IH DAILY 04/24/22 Ipratropium/Albuterol Sulfate [Iprat-Albut 0.5-3(2.5) mg/3 ml] 3 ml IH QID 04/24/22 Levothyroxine Sodium [Levothyroxine] 25 mcg PO DAILY 04/24/22 Sacubitril/Valsartan [Entresto 49 mg-51 mg Tablet] 1 each PO BID 04/24/22 Sertraline HCl 25 mg PO DAILY #90 tab 04/25/22 predniSONE [Deltasone*] 10 mg PO DAILY #90 tab 04/25/22 - Past Medical/Surgical History Diabetic: No -: HTN -: COPD -: KIDNEY DX STAGE 3 ? -: vein bypass in lower legs -: appendectomy -: disk in back of neck -: [place] [id number] - Social History Smoking Status: Current some day smoker Alcohol use: No CD- Drugs: No Caffeine use: Yes Place of Residence: Home Review of Systems General: Weakness Respiratory: Cough, Shortness of Breath Physical Examination Temp Pulse Resp BP Pulse Ox 97.4 F 74 14 113/66 96 04/25/22 08:00 04/25/22 09:05 04/25/22 08:00 04/25/22 09:05 04/25/22 08:00 General: Alert, In no apparent distress, Oriented x3 Respiratory: Clear to auscultation bilaterally, Normal air movement Cardiovascular: No edema, Regular rate/rhythm, Normal S1 S2 - Problems (1) COPD exacerbation Status: Acute Plan: Patient is 81 years of age admitted with COPD exacerbation possible right lower lobe pneumonia he is on Trelegy and home oxygen White count mildly elevated labs reviewed mild chronic renal failure agree with discharge home on low-dose prednisone and antibiotics need outpatient pulmonary function test patient to use O2 if sats less than 90 relaxers as needed advised to quit smoke
--- NOTE | 2022-04-25 13:05 | EKG ---
Test Date: 2022-04-24 Test Time: 03:37:19 Coating Inspector: RICARDO MEASUREMENT RESULTS: Intervals: Rate: 98 ID: [id number] QRSD: 100 QT: 370 QTc: 472 [place]: P: 72 ID: [id number] QRS: -12 T: 82 INTERPRETIVE STATEMENTS: Normal sinus rhythm Nonspecific T wave abnormality Prolonged QT Abnormal ECG Compared to ECG 01/29/2020 09:26:20 T-wave abnormality now present Prolonged QT interval now present Ventricular premature complex(es) no longer present ST (T wave) deviation no longer present Electronically Signed On 04-25-22 13:02:53 CDT by Desmond Laurent
[2022-04-26] MEDS ORDERED: levoFLOXacin 750 MG TAB PO SCH (09:00)
[2022-04-26] MEDS ORDERED: FAMOTIDINE 20 MG TAB PO SCH (09:00)
== END 2022-04-25 10:58 | disposition home or self-care (01) ==
LOC: ER 04:23 → ERHOLD 05:01 → 2ND 06:15
PROVIDERS: ADMIT Internal Medicine; ATTEND Internal Medicine
DX: J44.1 Chronic obstructive pulmonary disease with (acute) exacerbation (principal); F17.210 Nicotine dependence, cigarettes, uncomplicated; I25.2 Old myocardial infarction; I10 Essential (primary) hypertension; Z99.81 Dependence on supplemental oxygen; Z71.6 Tobacco abuse counseling; Z88.2 Allergy status to sulfonamides; Z88.8 Allergy status to other drugs, medicaments and biological substances; Z20.822 Contact with and (suspected) exposure to COVID-19
CPT/HCPCS: 0240U; 36415; 71045; 80048; 80076; 83605; 83735; 83880; 84484; 85025; 85610; 87040; 93005; 94640; 94760; 96374; 96375; 99285; J1100; J1650; J2930; J7030; J7613; J7614; J7644

== ENCOUNTER → 2023-03-06 | Emergency (ER) | payer OTHER ==
[~2023-03-06] MED LIST: ALBUTEROL 2.5 MG/3 ML NEB SOL ONE; IPRATROPIUM BROM 0.5MG/2.5ML ONE; METHYLPREDNISOLONE 125 MG INJ ONE
--- OUTSIDE RECORDS SUMMARY | 2023-03-06 09:12 | XMS REPORT | Continuity of Care Document ---
Author Name Unknown Address [address] [facility] [address] [place] [address] [facility] thconnect Address [address] [facility] [address] [place] [address] Care Team Providers Care Senior Software Engineer Analytics Name Role Phone Bobo Marie Primary Care Physician Bobo Marie Attending Clinician Unavailable JUMA ASTUDILLO Attending Clinician Unavaila Juma Rios Attending Clinician [phone] Ige-Lo_Vesna_JANNA Attending Clinician Unavailable IgeDexter Admitting Clinician Unavailable Payers Payer Name Policy Type Policy Number Effective Date Expirati on Date Source [facility] [id number] 2021 00:00:00 [employer] Replace C1 [id number] 2020 00:00:00 [facility] [employer] Medicare Replace C1 [id number] 2020 00:00:00 [facility] [employer] Medicare Replace C1 [id number] 2020 00:00:00 [facility] - [employer] (MEDICARE REPLACEMENT/ADV ANTAGE - HMO) [id number] 2019 00:00:00 2019 00:00:00 Problems Condition Name Condition Details Condition Category Status Onset Date Resolution Date Last Treatment Date Treating Clinician Comments Source No known active problems No known active problems Disease [facility] 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 Problem Active [facility] [id number] Depression , major, single episode, moderate Problem Active [facility] Chronic kidney disease stage 3B (disorder) Stage 3b chronic kidney disease Problem Common [facility] [id number] Hyperlipid emia, unspecifie d hyperlipid emia type Problem Active [facility] [id number] Chronic obstructiv e pulmonary disease, unspecifie d COPD type Problem Active [facility] [id number] Osteoarthr itis of multiple joints, unspecifie d osteoarthr itis type Problem Active [facility] [id number] Essential hypertensi on Problem Active [facility] [id number] Peripheral vascular disease Problem Active [facility] [id number] +5th digit eff 11/14/19*Ch ronic renal disease, stage III Problem Active [facility] [id number] CAD in [place] artery Problem Active [facility] [id number] Hx of skin cancer, basal cell Problem Active [facility] [id number] Tobacco use disorder Problem Active [facility] [id number] 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 Problem Active [facility] [id number] Chronic systolic congestive heart failure Problem Active [facility] [id number] GERD without esophagiti s Problem Active [facility] [id number] Skin ulcer, limited to breakdown of skin Problem Active [facility] [id number] 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 Problem Active [facility] [id number] Allergic rhinitis, unspecifie d seasonalit y, unspecifie d trigger Problem Active [facility] [id number] Hypothyroi dism, unspecifie d type Problem Active [facility] Allergies, Adverse Reactions, Alerts Allergy Name Allergy Type Status Severity Reaction(s) Onset Date Inactive Date Treating Clinician Comments Source SULFAMET HOXAZOLE DRUG INGREDI Active Unknown-Cmnt 08-02 00:00: 00 [facility] Sulfamet hoxazole Drug Allergy Active Unknown - See comments 08-02 00:00: 00 [facility] sulfamet hoxazole / trimetho prim sulfamet hoxazole / trimetho prim Active Unknown [facility] Social History Social Habit Start Date Stop Date Quantity Comments Source History of Tobacco Use Current Smoker [facility] Sex Assigned At [facility] Exposure to SARS-CoV-2 (event) 2021-07-23 00:00:00 2021-08-02 14:23:00 Not sure [facility] Smoking Status Start Date Stop Date Source Unknown if ever smoked [facility] Current Smoker 2021-09-10 00:00:00 [facility] Medications Ordered Medication Name Filled Medication Name Start Date Stop Date Current Medication? Ordering Clinician Indication Dosage Frequency Signature (SIG) Comments Components Source Cyclobenzap rine HCl 5 MG Cyclobenzap rine HCl 5 MG 08-06 00:00: 00 No 1{table t_at_be dtime_a s_neede d} QD Cyclobenza muriel HCl 5 MG Cyclobenzap rine HCl 5 MG Cyclobenzap rine HCl 5 MG 08-06 00:00: 00 No 1{table t_at_be dtime_a s_neede d} QD Cyclobenza muriel HCl 5 MG HYDROcodone -acetaminop hen (NORCO 5) 5-325 mg tablet 1 tablet 08-02 21:15: 00 08-02 20:44 :00 No 1{tbl} 1 tablet, Oral, ONCE, 1 dose, On Mon08/02/21 at 1615, [facility] ketorolac (TORADOL) injection 30 mg 08-02 21:15: 00 08-02 20:44 :00 No 30mg 30 mg, Intramuscu lar, ONCE, 1 dose, On 08/02/21 at 1615, Routine [facility] acetaminoph en-codeine 300-30 mg tablet 08-02 00:00: 00 08-10 04:59 :00 No [id number] 1{tbl} Take 1 tablet by mouth every 6 (six) hours as needed for Pain (scale 4-6) for up to 7 days. Indication s: acute pain [facility] ProAir HFA ProAir HFA Yes Bobo Marie 2 puffs as needed [facility] Atorvastati n Calcium Atorvastati n Calcium Yes Bobo Marie 1 tablet [facility] Levothyroxi ne Sodium Levothyroxi ne Sodium Yes Bobo Marie 1 tablet on an empty stomach in the morning [facility] Amlodipine Besylate Amlodipine Besylate Yes Bobo Marie 1 tablet [facility] Levothyroxi ne Sodium 50 MCG Levothyroxi ne Sodium 50 MCG No QD Levothyrox ine Sodium 50 MCG ProAir HFA 108 (90 Base) MCG/ACT ProAir HFA 108 (90 Base) MCG/ACT No 2{puffs _as_nee ded} QID ProAir HFA 108 (90 Base) MCG/ACT Fluticasone Propionate 50 MCG/ACT Fluticasone Propionate 50 MCG/ACT No 1{spray _in_eac h_nostr il} QD Fluticason e Propionate 50 MCG/ACT Symbicort 160-4.5 MCG/ACT Symbicort 160-4.5 MCG/ACT No 2{puffs } BID Symbicort 160-4.5 MCG/ACT Omeprazole 20 MG Omeprazole 20 MG No QD Omeprazole 20 MG amLODIPine Besylate 10 MG amLODIPine Besylate 10 MG No 1{table t} QD amLODIPine Besylate 10 MG Entresto 49-51 MG Entresto 49-51 MG No 1{table t} BID Entresto 49-51 MG Atorvastati n Calcium 40 MG Atorvastati n Calcium 40 MG No 1{table t} QD Atorvastat in Calcium 40 MG hydroCHLORO thiazide 12.5 MG hydroCHLORO thiazide 12.5 MG No 1{capsu le_in_t he_morn ing} QD hydroCHLOR Othiazide 12.5 MG Levothyroxi ne Sodium 50 MCG Levothyroxi ne Sodium 50 MCG No QD Levothyrox ine Sodium 50 MCG ProAir HFA 108 (90 Base) MCG/ACT ProAir HFA 108 (90 Base) MCG/ACT No 2{puffs _as_nee ded} QID ProAir HFA 108 (90 Base) MCG/ACT Fluticasone Propionate 50 MCG/ACT Fluticasone Propionate 50 MCG/ACT No 1{spray _in_eac h_nostr il} QD Fluticason e Propionate 50 MCG/ACT Symbicort 160-4.5 MCG/ACT Symbicort 160-4.5 MCG/ACT No 2{puffs } BID Symbicort 160-4.5 MCG/ACT Omeprazole 20 MG Omeprazole 20 MG No QD Omeprazole 20 MG amLODIPine Besylate 10 MG amLODIPine Besylate 10 MG No 1{table t} QD amLODIPine Besylate 10 MG Entresto 49-51 MG Entresto 49-51 MG No 1{table t} BID Entresto 49-51 MG Atorvastati n Calcium 40 MG Atorvastati n Calcium 40 MG No 1{table t} QD Atorvastat in Calcium 40 MG hydroCHLORO thiazide 12.5 MG hydroCHLORO thiazide 12.5 MG No 1{capsu le_in_t he_morn ing} QD hydroCHLOR Othiazide 12.5 MG Entresto 49-51 MG Entresto 49-51 MG No 1{table t} BID Entresto 49-51 MG Symbicort 160-4.5 MCG/ACT Symbicort 160-4.5 MCG/ACT No 2{puffs } BID Symbicort 160-4.5 MCG/ACT amLODIPine Besylate 10 MG amLODIPine Besylate 10 MG No 1{table t} QD amLODIPine Besylate 10 MG hydroCHLORO thiazide 12.5 MG hydroCHLORO thiazide 12.5 MG No 1{capsu le_in_t he_morn ing} QD hydroCHLOR Othiazide 12.5 MG ProAir HFA 108 (90 Base) MCG/ACT ProAir HFA 108 (90 Base) MCG/ACT No 2{puffs _as_nee ded} QID ProAir HFA 108 (90 Base) MCG/ACT Omeprazole 20 MG Omeprazole 20 MG No QD Omeprazole 20 MG Levothyroxi ne Sodium 50 MCG Levothyroxi ne Sodium 50 MCG No QD Levothyrox ine Sodium 50 MCG Atorvastati n Calcium 40 MG Atorvastati n Calcium 40 MG No 1{table t} QD Atorvastat in Calcium 40 MG Fluticasone Propionate 50 MCG/ACT Fluticasone Propionate 50 MCG/ACT No 1{spray _in_eac h_nostr il} QD Fluticason e Propionate 50 MCG/ACT Entresto 49-51 MG Entresto 49-51 MG No 1{table t} BID Entresto 49-51 MG Symbicort 160-4.5 MCG/ACT Symbicort 160-4.5 MCG/ACT No 2{puffs } BID Symbicort 160-4.5 MCG/ACT amLODIPine Besylate 10 MG amLODIPine Besylate 10 MG No 1{table t} QD amLODIPine Besylate 10 MG hydroCHLORO thiazide 12.5 MG hydroCHLORO thiazide 12.5 MG No 1{capsu le_in_t he_morn ing} QD hydroCHLOR Othiazide 12.5 MG ProAir HFA 108 (90 Base) MCG/ACT ProAir HFA 108 (90 Base) MCG/ACT No 2{puffs _as_nee ded} QID ProAir HFA 108 (90 Base) MCG/ACT Omeprazole 20 MG Omeprazole 20 MG No QD Omeprazole 20 MG Levothyroxi ne Sodium 50 MCG Levothyroxi ne Sodium 50 MCG No QD Levothyrox ine Sodium 50 MCG Atorvastati n Calcium 40 MG Atorvastati n Calcium 40 MG No 1{table t} QD Atorvastat in Calcium 40 MG Fluticasone Propionate 50 MCG/ACT Fluticasone Propionate 50 MCG/ACT No 1{spray _in_eac h_nostr il} QD Fluticason e Propionate 50 MCG/ACT Entresto 49-51 MG Entresto 49-51 MG No Entresto 49-51 MG ProAir HFA 108 (90 Base) MCG/ACT ProAir HFA 108 (90 Base) MCG/ACT No 2{puffs _as_nee ded} QID ProAir HFA 108 (90 Base) MCG/ACT amLODIPine Besylate 10 MG amLODIPine Besylate 10 MG No 1{table t} QD amLODIPine Besylate 10 MG Levothyroxi ne Sodium 50 MCG Levothyroxi ne Sodium 50 MCG No QD Levothyrox ine Sodium 50 MCG Symbicort 160-4.5 MCG/ACT Symbicort 160-4.5 MCG/ACT No 2{puffs } BID Symbicort 160-4.5 MCG/ACT hydroCHLORO thiazide 12.5 MG hydroCHLORO thiazide 12.5 MG No 1{capsu le_in_t he_morn ing} QD hydroCHLOR Othiazide 12.5 MG Omeprazole 20 MG Omeprazole 20 MG No QD Omeprazole 20 MG Fluticasone Propionate 50 MCG/ACT Fluticasone Propionate 50 MCG/ACT No 1{spray _in_eac h_nostr il} QD Fluticason e Propionate 50 MCG/ACT Atorvastati n Calcium 40 MG Atorvastati n Calcium 40 MG No 1{table t} QD Atorvastat in Calcium 40 MG Entresto 49-51 MG Entresto 49-51 MG No Entresto 49-51 MG ProAir HFA 108 (90 Base) MCG/ACT ProAir HFA 108 (90 Base) MCG/ACT No 2{puffs _as_nee ded} QID ProAir HFA 108 (90 Base) MCG/ACT amLODIPine Besylate 10 MG amLODIPine Besylate 10 MG No 1{table t} QD amLODIPine Besylate 10 MG Levothyroxi ne Sodium 50 MCG Levothyroxi ne Sodium 50 MCG No QD Levothyrox ine Sodium 50 MCG Symbicort 160-4.5 MCG/ACT Symbicort 160-4.5 MCG/ACT No 2{puffs } BID Symbicort 160-4.5 MCG/ACT hydroCHLORO thiazide 12.5 MG hydroCHLORO thiazide 12.5 MG No 1{capsu le_in_t he_morn ing} QD hydroCHLOR Othiazide 12.5 MG Omeprazole 20 MG Omeprazole 20 MG No QD Omeprazole 20 MG Fluticasone Propionate 50 MCG/ACT Fluticasone Propionate 50 MCG/ACT No 1{spray _in_eac h_nostr il} QD Fluticason e Propionate 50 MCG/ACT Atorvastati n Calcium 40 MG Atorvastati n Calcium 40 MG No 1{table t} QD Atorvastat in Calcium 40 MG Entresto 49-51 MG Entresto 49-51 MG No Entresto 49-51 MG ProAir HFA 108 (90 Base) MCG/ACT ProAir HFA 108 (90 Base) MCG/ACT No 2{puffs _as_nee ded} QID ProAir HFA 108 (90 Base) MCG/ACT amLODIPine Besylate 10 MG amLODIPine Besylate 10 MG No 1{table t} QD amLODIPine Besylate 10 MG Levothyroxi ne Sodium 50 MCG Levothyroxi ne Sodium 50 MCG No QD Levothyrox ine Sodium 50 MCG Symbicort 160-4.5 MCG/ACT Symbicort 160-4.5 MCG/ACT No 2{puffs } BID Symbicort 160-4.5 MCG/ACT hydroCHLORO thiazide 12.5 MG hydroCHLORO thiazide 12.5 MG No 1{capsu le_in_t he_morn ing} QD hydroCHLOR Othiazide 12.5 MG Omeprazole 20 MG Omeprazole 20 MG No QD Omeprazole 20 MG Fluticasone Propionate 50 MCG/ACT Fluticasone Propionate 50 MCG/ACT No 1{spray _in_eac h_nostr il} QD Fluticason e Propionate 50 MCG/ACT Atorvastati n Calcium 40 MG Atorvastati n Calcium 40 MG No 1{table t} QD Atorvastat in Calcium 40 MG Entresto 49-51 MG Entresto 49-51 MG No Entresto 49-51 MG ProAir HFA 108 (90 Base) MCG/ACT ProAir HFA 108 (90 Base) MCG/ACT No 2{puffs _as_nee ded} QID ProAir HFA 108 (90 Base) MCG/ACT amLODIPine Besylate 10 MG amLODIPine Besylate 10 MG No 1{table t} QD amLODIPine Besylate 10 MG Levothyroxi ne Sodium 50 MCG Levothyroxi ne Sodium 50 MCG No QD Levothyrox ine Sodium 50 MCG Symbicort 160-4.5 MCG/ACT Symbicort 160-4.5 MCG/ACT No 2{puffs } BID Symbicort 160-4.5 MCG/ACT hydroCHLORO thiazide 12.5 MG hydroCHLORO thiazide 12.5 MG No 1{capsu le_in_t he_morn ing} QD hydroCHLOR Othiazide 12.5 MG Omeprazole 20 MG Omeprazole 20 MG No QD Omeprazole 20 MG Fluticasone Propionate 50 MCG/ACT Fluticasone Propionate 50 MCG/ACT No 1{spray _in_eac h_nostr il} QD Fluticason e Propionate 50 MCG/ACT Atorvastati n Calcium 40 MG Atorvastati n Calcium 40 MG No 1{table t} QD Atorvastat in Calcium 40 MG Entresto 49-51 MG Entresto 49-51 MG No 1{table t} BID Entresto 49-51 MG Atorvastati n Calcium 40 MG Atorvastati n Calcium 40 MG No 1{table t} QD Atorvastat in Calcium 40 MG Levothyroxi ne Sodium 50 MCG Levothyroxi ne Sodium 50 MCG No QD Levothyrox ine Sodium 50 MCG Symbicort 160-4.5 MCG/ACT Symbicort 160-4.5 MCG/ACT No 2{puffs } BID Symbicort 160-4.5 MCG/ACT Omeprazole 20 MG Omeprazole 20 MG No QD Omeprazole 20 MG amLODIPine Besylate 10 MG amLODIPine Besylate 10 MG No 1{table t} QD amLODIPine Besylate 10 MG Entresto 49-51 MG Entresto 49-51 MG No Entresto 49-51 MG Fluticasone Propionate 50 MCG/ACT Fluticasone Propionate 50 MCG/ACT No 1{spray _in_eac h_nostr il} QD Fluticason e Propionate 50 MCG/ACT hydroCHLORO thiazide 12.5 MG hydroCHLORO thiazide 12.5 MG No 1{capsu le_in_t he_morn ing} QD hydroCHLOR Othiazide 12.5 MG ProAir HFA 108 (90 Base) MCG/ACT ProAir HFA 108 (90 Base) MCG/ACT No 2{puffs _as_nee ded} QID ProAir HFA 108 (90 Base) MCG/ACT Entresto 49-51 MG Entresto 49-51 MG No 1{table t} BID Entresto 49-51 MG Atorvastati n Calcium 40 MG Atorvastati n Calcium 40 MG No 1{table t} QD Atorvastat in Calcium 40 MG Levothyroxi ne Sodium 50 MCG Levothyroxi ne Sodium 50 MCG No QD Levothyrox ine Sodium 50 MCG Symbicort 160-4.5 MCG/ACT Symbicort 160-4.5 MCG/ACT No 2{puffs } BID Symbicort 160-4.5 MCG/ACT Omeprazole 20 MG Omeprazole 20 MG No QD Omeprazole 20 MG amLODIPine Besylate 10 MG amLODIPine Besylate 10 MG No 1{table t} QD amLODIPine Besylate 10 MG Entresto 49-51 MG Entresto 49-51 MG No Entresto 49-51 MG Fluticasone Propionate 50 MCG/ACT Fluticasone Propionate 50 MCG/ACT No 1{spray _in_eac h_nostr il} QD Fluticason e Propionate 50 MCG/ACT hydroCHLORO thiazide 12.5 MG hydroCHLORO thiazide 12.5 MG No 1{capsu le_in_t he_morn ing} QD hydroCHLOR Othiazide 12.5 MG ProAir HFA 108 (90 Base) MCG/ACT ProAir HFA 108 (90 Base) MCG/ACT No 2{puffs _as_nee ded} QID ProAir HFA 108 (90 Base) MCG/ACT Entresto 49-51 MG Entresto 49-51 MG No 1{table t} BID Entresto 49-51 MG Atorvastati n Calcium 40 MG Atorvastati n Calcium 40 MG No 1{table t} QD Atorvastat in Calcium 40 MG Levothyroxi ne Sodium 50 MCG Levothyroxi ne Sodium 50 MCG No QD Levothyrox ine Sodium 50 MCG Symbicort 160-4.5 MCG/ACT Symbicort 160-4.5 MCG/ACT No 2{puffs } BID Symbicort 160-4.5 MCG/ACT Omeprazole 20 MG Omeprazole 20 MG No QD Omeprazole 20 MG amLODIPine Besylate 10 MG amLODIPine Besylate 10 MG No 1{table t} QD amLODIPine Besylate 10 MG Entresto 49-51 MG Entresto 49-51 MG No Entresto 49-51 MG Fluticasone Propionate 50 MCG/ACT Fluticasone Propionate 50 MCG/ACT No 1{spray _in_eac h_nostr il} QD Fluticason e Propionate 50 MCG/ACT hydroCHLORO thiazide 12.5 MG hydroCHLORO thiazide 12.5 MG No 1{capsu le_in_t he_morn ing} QD hydroCHLOR Othiazide 12.5 MG ProAir HFA 108 (90 Base) MCG/ACT ProAir HFA 108 (90 Base) MCG/ACT No 2{puffs _as_nee ded} QID ProAir HFA 108 (90 Base) MCG/ACT hydroCHLORO thiazide 12.5 MG hydroCHLORO thiazide 12.5 MG No 1{capsu le_in_t he_morn ing} QD hydroCHLOR Othiazide 12.5 MG ProAir HFA 108 (90 Base) MCG/ACT ProAir HFA 108 (90 Base) MCG/ACT No 2{puffs _as_nee ded} QID ProAir HFA 108 (90 Base) MCG/ACT Omeprazole 20 MG Omeprazole 20 MG No QD Omeprazole 20 MG amLODIPine Besylate 10 MG amLODIPine Besylate 10 MG No 1{table t} QD amLODIPine Besylate 10 MG Levothyroxi ne Sodium 50 MCG Levothyroxi ne Sodium 50 MCG No QD Levothyrox ine Sodium 50 MCG Symbicort 160-4.5 MCG/ACT Symbicort 160-4.5 MCG/ACT No 2{puffs } BID Symbicort 160-4.5 MCG/ACT Fluticasone Propionate 50 MCG/ACT Fluticasone Propionate 50 MCG/ACT No 1{spray _in_eac h_nostr il} QD Fluticason e Propionate 50 MCG/ACT Entresto 49-51 MG Entresto 49-51 MG No Entresto 49-51 MG Entresto 49-51 MG Entresto 49-51 MG No 1{table t} BID Entresto 49-51 MG Atorvastati n Calcium 40 MG Atorvastati n Calcium 40 MG No 1{table t} QD Atorvastat in Calcium 40 MG amLODIPine Besylate 10 MG amLODIPine Besylate 10 MG No 1{table t} QD amLODIPine Besylate 10 MG Atorvastati n Calcium 40 MG Atorvastati n Calcium 40 MG No 1{table t} QD Atorvastat in Calcium 40 MG Omeprazole 20 MG Omeprazole 20 MG No QD Omeprazole 20 MG Fluticasone Propionate 50 MCG/ACT Fluticasone Propionate 50 MCG/ACT No 1{spray _in_eac h_nostr il} QD Fluticason e Propionate 50 MCG/ACT hydroCHLORO thiazide 12.5 MG hydroCHLORO thiazide 12.5 MG No 1{capsu le_in_t he_morn ing} QD hydroCHLOR Othiazide 12.5 MG Symbicort 160-4.5 MCG/ACT Symbicort 160-4.5 MCG/ACT No 2{puffs } BID Symbicort 160-4.5 MCG/ACT Levothyroxi ne Sodium 50 MCG Levothyroxi ne Sodium 50 MCG No QD Levothyrox ine Sodium 50 MCG Entresto 49-51 MG Entresto 49-51 MG No 1{table t} BID Entresto 49-51 MG Entresto 49-51 MG Entresto 49-51 MG No Entresto 49-51 MG ProAir HFA 108 (90 Base) MCG/ACT ProAir HFA 108 (90 Base) MCG/ACT No 2{puffs _as_nee ded} QID ProAir HFA 108 (90 Base) MCG/ACT Symbicort 160-4.5 MCG/ACT Symbicort 160-4.5 MCG/ACT No 2{puffs } BID Symbicort 160-4.5 MCG/ACT Entresto 49-51 MG Entresto 49-51 MG No 1{table t} BID Entresto 49-51 MG Levothyroxi ne Sodium 50 MCG Levothyroxi ne Sodium 50 MCG No QD Levothyrox ine Sodium 50 MCG Omeprazole 20 MG Omeprazole 20 MG No QD Omeprazole 20 MG Atorvastati n Calcium 40 MG Atorvastati n Calcium 40 MG No 1{table t} QD Atorvastat in Calcium 40 MG ProAir HFA 108 (90 Base) MCG/ACT ProAir HFA 108 (90 Base) MCG/ACT No 2{puffs _as_nee ded} QID ProAir HFA 108 (90 Base) MCG/ACT amLODIPine Besylate 10 MG amLODIPine Besylate 10 MG No 1{table t} QD amLODIPine Besylate 10 MG Fluticasone Propionate 50 MCG/ACT Fluticasone Propionate 50 MCG/ACT No 1{spray _in_eac h_nostr il} QD Fluticason e Propionate 50 MCG/ACT Levothyroxi ne Sodium 50 MCG Levothyroxi ne Sodium 50 MCG No QD Levothyrox ine Sodium 50 MCG Symbicort 160-4.5 MCG/ACT Symbicort 160-4.5 MCG/ACT No 2{puffs } BID Symbicort 160-4.5 MCG/ACT Atorvastati n Calcium 40 MG Atorvastati n Calcium 40 MG No 1{table t} QD Atorvastat in Calcium 40 MG hydroCHLORO thiazide 12.5 MG hydroCHLORO thiazide 12.5 MG No 1{capsu le_in_t he_morn ing} QD hydroCHLOR Othiazide 12.5 MG ProAir HFA 108 (90 Base) MCG/ACT ProAir HFA 108 (90 Base) MCG/ACT No 2{puffs _as_nee ded} QID ProAir HFA 108 (90 Base) MCG/ACT Entresto 49-51 MG Entresto 49-51 MG No 1{table t} BID Entresto 49-51 MG Fluticasone Propionate 50 MCG/ACT Fluticasone Propionate 50 MCG/ACT No 1{spray _in_eac h_nostr il} QD Fluticason e Propionate 50 MCG/ACT Omeprazole 20 MG Omeprazole 20 MG No QD Omeprazole 20 MG amLODIPine Besylate 10 MG amLODIPine Besylate 10 MG No 1{table t} QD amLODIPine Besylate 10 MG Symbicort Symbicort 06-26 00:00 :00 No Bobo Marie 2 puffs [facility] Immunizations Ordered Immunization Name Filled Immunization Name Date Status Comments Source Moderna COVID-19 Vaccine Moderna COVID-19 Vaccine 2020-05-25 14:24:00 Completed [facility] Moderna COVID-19 Vaccine Moderna COVID-19 Vaccine 2020-05-25 14:24:00 Completed [facility] Moderna COVID-19 Vaccine Moderna COVID-19 Vaccine 2020-05-25 14:24:00 Completed [facility] Moderna COVID-19 Vaccine Moderna COVID-19 Vaccine 2020-05-25 14:24:00 Completed [facility] Moderna COVID-19 Vaccine Moderna COVID-19 Vaccine 2020-05-25 14:24:00 Completed [facility] Moderna COVID-19 Vaccine Moderna COVID-19 Vaccine 2020-05-25 14:24:00 Completed [facility] Moderna COVID-19 Vaccine Moderna COVID-19 Vaccine 2020-05-25 14:24:00 Completed [facility] Moderna COVID-19 Vaccine Moderna COVID-19 Vaccine 2020-05-25 14:24:00 Completed [facility] Moderna COVID-19 Vaccine Moderna COVID-19 Vaccine 2020-05-25 14:24:00 Completed [facility] Moderna COVID-19 Vaccine Moderna COVID-19 Vaccine 2020-05-25 14:24:00 Completed [facility] Moderna COVID-19 Vaccine Moderna COVID-19 Vaccine 2020-05-25 14:24:00 Completed [facility] Moderna COVID-19 Vaccine Moderna COVID-19 Vaccine 2020-05-25 14:24:00 Completed [facility] Moderna COVID-19 Vaccine Moderna COVID-19 Vaccine 2020-05-25 14:24:00 Completed [facility] Moderna COVID-19 Vaccine Moderna COVID-19 Vaccine 2020-05-25 14:24:00 Completed [facility] Moderna COVID-19 Vaccine Moderna COVID-19 Vaccine 2020-04-29 14:23:00 Completed [facility] Moderna COVID-19 Vaccine Moderna COVID-19 Vaccine 2020-04-29 14:23:00 Completed [facility] Moderna COVID-19 Vaccine Moderna COVID-19 Vaccine 2020-04-29 14:23:00 Completed [facility] Moderna COVID-19 Vaccine Moderna COVID-19 Vaccine 2020-04-29 14:23:00 Completed [facility] Moderna COVID-19 Vaccine Moderna COVID-19 Vaccine 2020-04-29 14:23:00 Completed [facility] Moderna COVID-19 Vaccine Moderna COVID-19 Vaccine 2020-04-29 14:23:00 Completed [facility] Moderna COVID-19 Vaccine Moderna COVID-19 Vaccine 2020-04-29 14:23:00 Completed [facility] Moderna COVID-19 Vaccine Moderna COVID-19 Vaccine 2020-04-29 14:23:00 Completed [facility] Moderna COVID-19 Vaccine Moderna COVID-19 Vaccine 2020-04-29 14:23:00 Completed [facility] Moderna COVID-19 Vaccine Moderna COVID-19 Vaccine 2020-04-29 14:23:00 Completed [facility] Moderna COVID-19 Vaccine Moderna COVID-19 Vaccine 2020-04-29 14:23:00 Completed [facility] Moderna COVID-19 Vaccine Moderna COVID-19 Vaccine 2020-04-29 14:23:00 Completed [facility] Moderna COVID-19 Vaccine Moderna COVID-19 Vaccine 2020-04-29 14:23:00 Completed [facility] Moderna COVID-19 Vaccine Moderna COVID-19 Vaccine 2020-04-29 14:23:00 Completed [facility] Moderna COVID-19 Vaccine Moderna COVID-19 Vaccine Unknown Completed [facility] Moderna COVID-19 Vaccine Moderna COVID-19 Vaccine Unknown Completed [facility] Vital Signs Vital Name Observation Time Observation Value Comments S cathyce Systolic blood pressure 2021-08-02 21:41:00 145 mm[Hg] [facility] Diastolic blood pressure 2021-08-02 21:41:00 90 mm[Hg] [facility] Heart rate 2021-08-02 21:41:00 58 /min [facility] Respiratory rate 2021-08-02 21:41:00 18 /min [facility] Oxygen saturation in Arterial blood by Pulse oximetry 2021-08-02 21:41:00 98 /min [facility] Body temperature 2021-08-02 19:30:00 37.17 Donna [facility] Body height 2021-08-02 19:30:00 177.8 cm [facility] Body weight 2021-08-02 19:30:00 62.143 kg [facility] BMI 2021-08-02 19:30:00 19.66 kg/m2 [facility] height 2021-07-02 07:50:00 69 [in_i] Commo n [facility] weight 2021-07-02 07:50:00 135 [lb_av] [facility] on [facility] temperature 2021-07-02 07:50:00 98 [degF] [facility] on [facility] bmi 2021-07-02 07:50:00 19.93 kg/m2 [facility] height 2021-06-16 09:00:00 69 [in_i] Commo n [facility] weight 2021-06-16 09:00:00 134.5 [lb_av] Co mmon [facility] temperature 2021-06-16 09:00:00 96.8 [degF] Com [facility] bmi 2021-06-16 09:00:00 19.86 kg/m2 Comm on [facility] oximetry 2021-06-16 09:00:00 97 % Commo n [facility] respiratory rate 2021-06-16 09:00:00 17 /min [facility] blood pressure systolic 2021-06-16 09:00:00 135 mm[Hg] [facility] blood pressure diastolic 2021-06-16 09:00:00 72 mm[Hg] Common [facility] height 2021-06-16 09:00:00 69 [in_i] Commo n [facility] weight 2021-06-16 09:00:00 134.5 [lb_av] Co [facility] temperature 2021-06-16 09:00:00 96.8 [degF] Com [facility] bmi 2021-06-16 09:00:00 19.86 kg/m2 Comm on [facility] oximetry 2021-06-16 09:00:00 97 % Commo n [facility] respiratory rate 2021-06-16 09:00:00 17 /min Common [facility] blood pressure systolic 2021-06-16 09:00:00 135 mm[Hg] [facility] blood pressure diastolic 2021-06-16 09:00:00 72 mm[Hg] Common [facility] height 2021-03-03 14:20:00 69 [in_i] Commo n [facility] weight 2021-03-03 14:20:00 132.7 [lb_av] Co mmon [facility] temperature 2021-03-03 14:20:00 97.7 [degF] Com mon [facility] bmi 2021-03-03 14:20:00 19.59 kg/m2 Comm on [facility] oximetry 2021-03-03 14:20:00 95 % Commo n [facility] respiratory rate 2021-03-03 14:20:00 16 /min [facility] blood pressure systolic 2021-03-03 14:20:00 132 mm[Hg] Common [facility] blood pressure diastolic 2021-03-03 14:20:00 65 mm[Hg] [facility] height 2020-12-01 14:20:00 69 [in_i] Commo n [facility] weight 2020-12-01 14:20:00 132 [lb_av] Comm on [facility] temperature 2020-12-01 14:20:00 98 [degF] Comm on [facility] bmi 2020-12-01 14:20:00 19.49 kg/m2 Comm on [facility] blood pressure systolic 2020-12-01 14:20:00 130 mm[Hg] Common [facility] blood pressure diastolic 2020-12-01 14:20:00 76 mm[Hg] Common [facility] height 2020-09-16 14:10:00 69 [in_i] Commo n [facility] weight 2020-09-16 14:10:00 132.5 [lb_av] Co mmon [facility] temperature 2020-09-16 14:10:00 97.9 [degF] Com mon [facility] bmi 2020-09-16 14:10:00 19.56 kg/m2 Comm on [facility] oximetry 2020-09-16 14:10:00 97 % Commo n [facility] respiratory rate 2020-09-16 14:10:00 16 /min [facility] blood pressure systolic 2020-09-16 14:10:00 134 mm[Hg] [facility] blood pressure diastolic 2020-09-16 14:10:00 75 mm[Hg] [facility] Procedures Procedure Date / Time Performed Performing Clinicia n Source CONSENT/REFUSAL FOR DIAGNOSIS AND TREATMENT 2021-08-02 19:23:00 Doctor Unassigned, [facility] Encounters Start Date/Time End Date/Time Encounter Type Admission Type Attending Clinicians Care Facility Care Department Encounter ID Source 2021-06-30 09:53:00 [facility] [id number] [facility] 2021-06-14 16:00:01 Outpatient Marie [facility] [id number] [facility] 2021-06-07 14:36:01 [facility] [id number] [facility] 2021-03-10 14:37:39 [facility] [id number] [facility] 2021-03-10 14:02:27 [facility] [id number] [facility] 2021-03-10 13:34:30 [facility] [id number] [facility] 2021-03-10 13:00:43 Outpatient Marie, Bobo [facility] [id number] [facility] 2021-03-10 12:34:37 Outpatient Marie, Bobo [facility] [id number] [facility] 2021-03-10 12:33:55 Outpatient Marie, Bobo [facility] [id number] [facility] 2021-03-10 12:10:58 Outpatient Marie, Bobo [facility] ST[facility] [id number] [facility] 2022-11-24 00:00:00 2022-11-24 00:00:00 (TEL) STLMLC [facility] [id number] [facility] 2021-08-06 00:00:00 2021-08-06 00:00:00 (TEL) STLMLC [facility] [id number] [facility] 2021-08-02 14:31:00 2021-08-02 16:42:00 Emergency X [facility] E[facility] [id number] [facility] 2021-08-02 14:31:00 2021-08-02 16:42:00 Emergency [place], [facility] [id number] [facility] 2021-07-30 00:00:00 2021-07-30 00:00:00 (TEL) STLMLC ST[facility] [id number] [facility] 2021-07-27 00:00:00 2021-07-27 00:00:00 (TEL) STLMLC ST[facility]C [id number] [facility] 2021-07-02 00:00:00 2021-07-02 00:00:00 OFFICE VISIT EST PT LEVEL 3 [facility]C ST[facility] [id number] [facility] 2021-06-25 00:00:00 2021-06-25 00:00:00 (TEL) STLMLC STL[facility]C [id number] [facility] 2021-06-16 00:00:00 2021-06-16 00:00:00 OFFICE VISIT ESTAB PT LEVEL 4 STLMLC STL[facility]C [id number] [facility] 2021-06-16 00:00:00 2021-06-16 00:00:00 (TEL) STLMLC STLMLC [id number] [facility] 2021-06-16 00:00:00 2021-06-16 00:00:00 SUB ANNUAL [facility] VISIT STLMLC STLMLC [id number] [facility] 2021-05-12 00:00:00 2021-05-12 00:00:00 (TEL) STLMLC STL[facility]C [id number] [facility] 2021-03-03 00:00:00 2021-03-03 00:00:00 OFFICE VISIT ESTAB PT LEVEL 4 STLMLC STL[facility]C [id number] [facility] 2021-02-23 00:00:00 2021-02-23 00:00:00 (TEL) STLMLC STL[facility]C [id number] [facility] 2020-12-01 00:00:00 2020-12-01 00:00:00 OFFICE VISIT EST PT LEVEL 3 [facility]C STL[facility] [id number] [facility] 2020-09-16 00:00:00 2020-09-16 00:00:00 OFFICE VISIT ESTAB PT LEVEL 4 [facility]C STL[facility]C [id number] [facility] 2020-08-21 00:00:00 2020-08-21 00:00:00 (TEL) STLMLC STLMLC [id number] [facility] 2020-06-18 00:00:00 2020-06-18 00:00:00 Outpatient STLMLC ST[facility] [id number] [facility] 2020-06-18 00:00:00 2020-06-18 00:00:00 Outpatient STLMLC ST[facility] [id number] [facility] 2020-05-15 00:00:00 2020-05-15 00:00:00 Outpatient STLMLC ST[facility] [id number] [facility] 2020-04-13 00:00:00 2020-04-13 00:00:00 Outpatient STLMLC ST[facility] [id number] [facility] 2020-02-19 00:00:00 2020-02-19 00:00:00 Outpatient STLMLC ST[facility] [id number] [facility] 2020-01-16 00:00:00 2020-01-16 00:00:00 Outpatient STLMLC STL[facility] [id number] [facility] 2019-04-03 07:23:00 2019-04-03 07:23:00 Outpatient Ige-[place] _J_AH VFP VFP [id number] [facility] 2018-06-20 11:30:00 2018-06-20 11:30:00 [facility] [id number] [facility] 2018-03-28 14:30:00 2018-03-28 14:30:00 [facility] [id number] [facility] 2018-01-24 08:45:00 2018-01-24 08:45:00 [place] [facility] [facility] [address] [facility] [place] [facility] [id number] [facility] 2017-11-21 14:37:00 2017-11-21 14:37:00 [place] [facility] [place] [facility] [id number] [facility] 2017-11-20 13:09:00 2017-11-20 13:09:00 [place] [place] [facility] [id number] [facility] 2017-11-15 13:30:00 2017-11-15 13:30:[address] [facility] [address] [facility] [place] [facility] [id number] [facility]
[2023-03-06 10:11] LABS: Absolute Lymphocytes (CBC) 1.3 K/uL (0.7-4.9); Hematocrit 40.5 % (39.6-49.0); Lymphocytes % 16.8 % (15.3-44.8); MCV 91.3 fL (80-100); Platelets 185 thou/uL (152-406); RBC Red Blood Cell Count 4.44 M/uL (4.33-5.43)
[2023-03-06 10:30] LABS: Bilirubin Direct 0.3 mg/dL (0-0.2); Bilirubin Indirect, Calculated 0.3 mg/dL (0.2-0.8); Bilirubin Total 0.6 mg/dL (0.2-1.0); Magnesium 2.2 mg/dL (1.6-2.4); Potassium 4.6 mEq/L (3.5-5.1); Protein, Total 6.6 g/dL (6.4-8.2); Troponin High Sensitivity 20.2 pg/mL (<58.9)
[2023-03-06 11:23] LABS: SARS-CoV-2 Antigen Rapid Res Positive (Negative)
--- NOTE | 2023-03-06 12:51 | RAD REPORT ---
EXAM DESCRIPTION: RAD - Chest Single View - 03/06/2023 12:42 pm CLINICAL HISTORY: COPD Chest pain. COMPARISON: Chest Single View dated 04/24/2022; Chest Pa And Lat (2 Views) dated 02/22/2022; Chest Pa And Lat (2 Views) dated 10/27/2021; Chest Pa And Lat (2 Views) dated 01/29/2020 FINDINGS: Portable technique limits examination quality. The lungs are emphysematous but grossly clear. The heart is normal in size. No displaced fractures.Ce rvical hardware plate. IMPRESSION: Prominent diffuse COPD.
--- NOTE | 2023-03-06 13:19 | ER ---
Nurse's Notes [facility] Name: Tucker Jackson Age: 82 yrs Sex: Male : 1940 Arrival Date: 03/06/2023 Time: 09:08 Bed 7 Private MD: Murphy Leblanc V Diagnosis: COPD/ Chronic obstructive pulmonary disease, unspecified;Covid 19 Presentation: 03/06 09:50 Chief complaint: Patient states: SOB, cough X 1 week, no fever. Coronavirus screen: iw Client presents with at least one sign or symptom that may indicate coronavirus-19. Ebola Screen: Patient negative for fever greater than or equal to 101.5 degrees Fahrenheit, and additional compatible Ebola Virus Disease symptoms Patient denies exposure to infectious person. Patient denies travel to an Ebola-affected area in the 21 days before illness onset. No symptoms or risks identified at this time. Initial Sepsis Screen: Does the patient meet any 2 criteria? Does the patient have a suspected source of infection?. Risk Assessment: Do you want to hurt yourself or someone else?. Onset of symptoms was February 20, 2023. 09:50 Method Of Arrival: Wheelchair iw 09:50 Acuity: TIFFANY 3 iw Historical: - Allergies: 09:51 Sulfa (Sulfonamide Antibiotics); iw - PMHx: 09:51 COPD; Hypertension; Myocardial infarction; iw - PSHx: 09:51 Appendectomy; stents in legs (Appendectomy); iw - Immunization history:: Adult Immunizations up to date. - Social history:: Smoking status: Patient reports the use of cigarette tobacco products, smokes 1.5 packs per day. - Family history:: not pertinent. Screenin:48 [facility] ED Fall Risk Assessment (Adult) History of falling in the last 3 months, kc6 including since admission No falls in past 3 months (0 pts) Confusion or Disorientation No (0 pts) Intoxicated or Sedated No (0 pts) Impaired Gait No (0 pts) Mobility Assist Device Used No (0 pt) Altered Elimination No (0 pt) Score/Fall Risk Level 0 - 2 = Low Risk. Abuse screen: Denies threats or abuse. Denies injuries from another. Nutritional screening: No deficits noted. Tuberculosis screening: No symptoms or risk factors identified. Assessment: 10:49 General: Appears in no apparent distress. comfortable, well groomed, well developed, kc6 Behavior is calm, cooperative, appropriate for age. Pain: Denies pain. Neuro: Level of Consciousness is awake, alert, obeys commands, Oriented to person, place, time, situation, Appropriate for age. Cardiovascular: Denies chest pain, Heart tones S1 S2 present Capillary refill < 3 seconds Rhythm is sinus rhythm. Respiratory: Reports shortness of breath Airway is patent Trachea midline Respiratory effort is even, unlabored, Respiratory pattern is regular, symmetrical. GI: No signs and/or symptoms were reported involving the gastrointestinal system. : No signs and/or symptoms were reported regarding the genitourinary system. EENT: No signs and/or symptoms were reported regarding the EENT system. Derm: No signs and/or symptoms reported regarding the dermatologic system. Skin is intact, is healthy with good turgor, Skin is pink, warm \T\ dry. Musculoskeletal: No signs and/or symptoms reported regarding the musculoskeletal system. Circulation, motion, and sensation intact. Capillary refill < 3 seconds, Range of motion: intact in all extremities. 11:48 Reassessment: Patient appears in no apparent distress at this time. No changes from kc6 previously documented assessment. Patient and/or family updated on plan of care and expected duration. Pain level reassessed. Patient is alert, oriented x 3, equal unlabored respirations, skin warm/dry/pink. Vital Signs: 09:50 BP 101 / 65; Pulse 84; Resp 20; Temp 97.6; Pulse Ox 93% on R/A; Weight 63.5 kg; Height iw 5 ft. 10 in. ; 10:49 BP 119 / 76; Pulse 71; Resp 18 S; Pulse Ox 96% on R/A; kc6 11:48 BP 124 / 67; Pulse 72; Resp 18 S; Pulse Ox 92% on R/A; kc6 12:27 BP 114 / 76; Pulse 79; Resp 20; Pulse Ox 92% ; bp 09:50 Body Mass Index 20.09 (63.50 kg, 177.8 cm) iw ED Course: 09:10 Patient arrived in ED. rg4 09:10 Murphy Leblanc MD is Private Physician. rg4 09:11 Da Garrett MD is Attending Physician. rt 09:51 Triage completed. iw 09:52 Arm band placed on. iw 10:04 Inserted saline lock: 22 gauge in right antecubital area, using aseptic technique. ds4 Blood collected. 10:27 Magalie Lee, RN is Primary Nurse. kc6 10:48 Patient maintains SpO2 saturation greater than 95% on room air. kc6 10:49 Patient has correct armband on for positive identification. Placed in gown. Bed in low kc6 position. Call light in reach. Side rails up X2. Adult w/ patient. Client placed on continuous cardiac and pulse oximetry monitoring. NIBP monitoring applied. environmental monitoring specialist on. 12:04 Primary Nurse role handed off by Magalie Lee, RN bp 12:04 Mandeep Sanchez, RN is Primary Nurse. bp 12:44 XRAY Chest (1 view) In Process Unspecified. EDMS 13:18 Murphy Leblanc MD is Referral Physician. rt 13:40 No provider procedures requiring assistance completed. IV discontinued, intact, iw bleeding controlled, No redness/swelling at site. Pressure dressing applied. Administered Medications: 10:47 Drug: DuoNeb Nebulize (3:1) (2.5 mg - 0.5 mg) 3 ml Nebulizer once Route: Nebulizer; kc6 10:47 Drug: MethylPrednisoLONE IVP 125 mg IVP once Route: IVP; Site: right antecubital; kc6 Outcome: 13:18 Discharge ordered by . rt 13:40 Discharged to home via wheelchair, with family, iw 13:40 Condition: good 13:40 Discharge instructions given to family, Instructed on discharge instructions, follow up and referral plans. medication usage, Demonstrated understanding of instructions, follow-up care, medications, Prescriptions given X 2, 13:41 Patient left the ED. iw Signatures: Dispatcher [employer] EDMS Alexa Gao, MONE SHORE iw Rc Hughes ds4 Mai Watt rg4 Mandeep Sanchez RN RN bp Magalie Lee RN RN kc6 Da Garrett MD MD rt
--- NOTE | 2023-03-06 13:19 | EDPHYS ---
Physician Documentation [facility] Name: Tucker Jackson Age: 82 yrs Sex: Male : 1940 Arrival Date: 03/06/2023 Time: 09:08 Bed 7 Private MD: Murphy Leblanc V ED Physician Da Garrett HPI: 03/06 09:59 This 82 yrs old Male presents to ER via Wheelchair with complaints of Breathing rt Difficulty. 09:59 Patient with history of COPD presents to the ED with cough. Has been progressively rt worsening for the past week. He does report dyspnea on exertion and orthopnea. He has been doing breathing treatments, monitoring. Symptoms are expected, no other aggravating factors.. Historical: - Allergies: 09:51 Sulfa (Sulfonamide Antibiotics); iw - PMHx: 09:51 COPD; Hypertension; Myocardial infarction; iw - PSHx: 09:51 Appendectomy; stents in legs (Appendectomy); iw - Immunization history:: Adult Immunizations up to date. - Social history:: Smoking status: Patient reports the use of cigarette tobacco products, smokes 1.5 packs per day. - Family history:: not pertinent. ROS: 09:59 Constitutional: Negative for fever, chills, and weight loss, Abdomen/GI: Negative for rt abdominal pain, nausea, vomiting, diarrhea, and constipation, MS/Extremity: Negative for injury and deformity, Skin: Negative for injury, rash, and discoloration, Neuro: Negative for headache, weakness, numbness, tingling, and seizure, Psych: Negative for depression, anxiety, suicide ideation, homicidal ideation, and hallucinations, 09:59 Cardiovascular: Negative for chest pain, edema, 09:59 Respiratory: Positive for cough, shortness of breath, Exam: 09:59 Head/Face: Normocephalic, atraumatic. Chest/axilla: Normal chest wall appearance and rt motion. Nontender with no deformity. No lesions are appreciated. Cardiovascular: Regular rate and rhythm with a normal S1 and S2. No gallops, murmurs, or rubs. Normal PMI, no JVD. No pulse deficits. Abdomen/GI: Soft, non-tender, with normal bowel sounds. No distension or tympany. No guarding or rebound. No evidence of tenderness throughout. Skin: Warm, dry with normal turgor. Normal color with no rashes, no lesions, and no evidence of cellulitis. MS/ Extremity: Pulses equal, no cyanosis. Neurovascular intact. Full, normal range of motion. Neuro: Awake and alert, GCS 15, oriented to person, place, time, and situation. Cranial nerves II-XII grossly intact. Motor strength 5/5 in all extremities. Sensory grossly intact. Cerebellar exam normal. Normal gait. Psych: Awake, alert, with orientation to person, place and time. Behavior, mood, and affect are within normal limits. 09:59 Constitutional: The patient appears Thin, chronically ill-appearing 09:59 Respiratory: Wheezes heard on all lung [place], no respiratory distress, 10:50 ECG was reviewed by the Attending Physician. rt Vital Signs: 09:50 BP 101 / 65; Pulse 84; Resp 20; Temp 97.6; Pulse Ox 93% on R/A; Weight 63.5 kg; Height iw 5 ft. 10 in. ; 10:49 BP 119 / 76; Pulse 71; Resp 18 S; Pulse Ox 96% on R/A; kc6 11:48 BP 124 / 67; Pulse 72; Resp 18 S; Pulse Ox 92% on R/A; kc6 12:27 BP 114 / 76; Pulse 79; Resp 20; Pulse Ox 92% ; bp 09:50 Body Mass Index 20.09 (63.50 kg, 177.8 cm) iw MDM: 09:38 Patient medically screened. rt 18:43 Differential diagnosis: COVID, flu, COPD, pneumonia. Data reviewed: vital signs, nurses rt notes. Consideration of Admission/Observation Escalation of care including admission/observation considered. Offered patient admission to the hospital, stated that he was feeling much better, wished to go home. Will start patient on Paxlovid, steroids, treat COPD. Stable for outpatient care at this time, strict turn precautions were discussed.. I considered the following discharge prescriptions or medication management in the emergency department Medications were administered in the Emergency Department. See MAR. Independent interpretation of the following test(s) in the Emergency Department X-Ray: My interpretation is No pneumonia seen on interpretation of x-ray images. 18:43 Test considered but Not performed: CT: Low suspicion for pulmonary embolism, CT rt angiogram not indicated. Care significantly affected by the following chronic conditions: Chronic Obstructive Pulmonary Disease. Counseling: I had a detailed discussion with the patient and/or guardian regarding the historical points, exam findings, and any diagnostic results supporting the discharge/admit diagnosis, lab results, radiology results, the need for outpatient follow up, to return to the emergency department if symptoms worsen or persist or if there are any questions or concerns that arise at home. Response to treatment: the patient's symptoms have markedly improved after treatment. 03/06 09:39 Order name: Basic Metabolic Panel; Complete Time: 11:36 rt 03/06 09:39 Order name: CBC with Diff; Complete Time: 11:36 rt 03/06 09:39 Order name: LFT's; Complete Time: 11:36 rt 03/06 09:39 Order name: Magnesium; Complete Time: 11:36 rt 03/06 09:39 Order name: NT PRO-BNP; Complete Time: 11:36 rt 03/06 09:39 Order name: Troponin HS; Complete Time: 11:36 rt 03/06 10:09 Order name: Influenza Screen (a \T\ B); Complete Time: 11:36 rt 03/06 10:09 Order name: SARS RAPID; Complete Time: 11:36 rt 03/06 09:39 Order name: XRAY Chest (1 view); Complete Time: 12:52 rt 03/06 09:39 Order name: EKG; Complete Time: 09:40 rt 03/06 09:39 Order name: Cardiac monitoring; Complete Time: 10:47 rt 03/06 09:39 Order name: EKG - Nurse/Tech; Complete Time: 10:47 rt 03/06 09:39 Order name: IV Saline Lock; Complete Time: 10:03 rt 03/06 09:39 Order name: Labs collected and sent; Complete Time: 10:03 rt 03/06 09:39 Order name: O2 Per Protocol; Complete Time: 10:47 rt 03/06 09:39 Order name: O2 Sat Monitoring; Complete Time: 10:47 rt EC:50 Rate is 70 beats/min. Rhythm is regular, Normal Sinus Rhythm with No ectopy. QRS [place] rt is Normal. GA interval is normal. QRS interval is normal. QT interval is normal. No Q waves. Clinical impression: NSR w/ Non-specific ST/T Changes. Administered Medications: 10:47 Drug: DuoNeb Nebulize (3:1) (2.5 mg - 0.5 mg) 3 ml Nebulizer once Route: Nebulizer; kc6 10:47 Drug: MethylPrednisoLONE IVP 125 mg IVP once Route: IVP; Site: right antecubital; kc6 Disposition Summary: 03/06/23 13:18 Discharge Ordered Notes: Location: Home rt Problem: new rt Symptoms: have improved rt Condition: Stable rt Diagnosis - COPD/ Chronic obstructive pulmonary disease, unspecified rt - Covid 19 rt Followup: rt - With: Murphy Leblanc MD - When: 2 - 3 days - Reason: Followup: rt - With: Emergency Department - When: As needed - Reason: Worsening of condition Discharge Instructions: - Discharge Summary Sheet rt - Chronic Obstructive Pulmonary Disease rt - COVID-19 rt Forms: - Medication Reconciliation Form rt - Thank You Letter rt - Antibiotic Education rt - Prescription Opioid Use rt - Patient Portal Instructions rt - Leadership Thank You Letter rt Prescriptions: - Paxlovid 300 mg (150 mg x 2)-100 mg Oral Tablet, Dose Pack - take 1 dose pack ORAL route per package directions; 1 Each; Refills: 0, Product rt Selection Permitted - Prednisone 20 mg Oral Tablet - take 2 tablets ORAL route once daily for 5 days; 10 tablet; Refills: 0, Product rt Selection Permitted Signatures: Dispatcher [employer] Alexa Daniels, RN Magalie Bernal RN RN kc6 Da Garrett MD MD rt
[2023-03-06 14:06] VITALS: BP 114/76; TEMP 97.6; O2SAT 92
--- NOTE | 2023-03-07 17:52 | EKG ---
Test Date: 2023-03-06 Test Time: 10:37:59 Protective Services Officer: ISAEL MEASUREMENT RESULTS: Intervals: Rate: 70 MT: 174 QRSD: 96 QT: 434 QTc: 468 [place]: P: 84 MT: 174 QRS: -13 T: 90 INTERPRETIVE STATEMENTS: Normal sinus rhythm Nonspecific ST and T wave abnormality Prolonged QT Abnormal ECG Compared to ECG 04/24/2022 03:37:19 ST (T wave) deviation now present T-wave abnormality no longer present Electronically Signed On 03-07-23 17:50:35 DOWELING MACHINE OPERATOR by Desmond Laurent
== END ==
LOC: ER 09:08
DX: U07.1 COVID-19 (principal); J44.9 Chronic obstructive pulmonary disease, unspecified; I10 Essential (primary) hypertension; F17.210 Nicotine dependence, cigarettes, uncomplicated; Z88.2 Allergy status to sulfonamides
CPT/HCPCS: 93005; 85025; 80048; 36415; 83735; 80076; 84484; 83880; 87804 ×2; 71045; 94640; 96374; 99285; 87811; J7613; J7644; J2930

== ENCOUNTER 2024-11-27 10:29 | Inpatient (IN) | payer OTHER ==
--- OUTSIDE RECORDS SUMMARY | 2024-11-27 10:33 | XMS REPORT | Continuity of Care Document ---
Author Name Unknown Address [address] [facility] [place] [address] Organization [facility] Address [address] [facility] [address] [place] [address] Care Team Providers Care Housefellow Name Role Phone Bobo Marie Primary Care Physician [phone] Bobo Marie Attending Clinician Unavailable JUMA LYMAN Attending Clinician Unavaila Juma Rios Attending Clinician [phone] Ige-Lo_Vesna_JANNA Attending Clinician Unavailable Cleo Admitting Clinician Unavailable Payers Payer Name Policy Type Policy Number Effective Date Expirati on Date Source [facility] [id number] 2021 00:00:00 [employer] Replace C1 [id number] 2020 00:00:00 [facility] [employer] Medicare Replace C1 [id number] 2020 00:00:00 [facility] [employer] Medicare Replace C1 [id number] 2020 00:00:00 [facility] TEXERNESTOPL[employer] (MEDICARE REPLACEMENT/ADV ANTAGE - HMO) [id number] 2019 00:00:00 2019 00:00:00 Problems Condition Name Condition Details Condition Category Status Onset Date Resolution Date Last Treatment Date Treating Clinician Comments Source No known active problems No known active problems Disease [facility] 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 Problem Active [facility] [id number] Depression , major, single episode, moderate Problem Active [facility] Chronic kidney disease stage 3B (disorder) Stage 3b chronic kidney disease Problem Common [facility] [id number] Hyperlipid emia, unspecifie d hyperlipid emia type Problem Active [facility] [id number] Chronic obstructiv e pulmonary disease, unspecifie d COPD type Problem Active [facility] [id number] Osteoarthr itis of multiple joints, unspecifie d osteoarthr itis type Problem Active [facility] [id number] Essential hypertensi on Problem Active [facility] 446239157 Peripheral vascular disease Problem Active [facility] [id number] +5th digit eff 11/14/19*Ch ronic renal disease, stage III Problem Active [facility] [id number] 107 CAD in [place] artery Problem Active [facility] [id number] Hx of skin cancer, basal cell Problem Active [facility] [id number] Tobacco use disorder Problem Active [facility] [id number] 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 Problem Active [facility] [id number] Chronic systolic congestive heart failure Problem Active [facility] 591285356 GERD without esophagiti s Problem Active [facility] 44917874 Skin ulcer, limited to breakdown of skin Problem Active [facility] [id number] 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 Problem Active [facility] 11696010 Allergic rhinitis, unspecifie d seasonalit y, unspecifie d trigger Problem Active [facility] 58310042 Hypothyroi dism, unspecifie d type Problem Active [facility] Allergies, Adverse Reactions, Alerts Allergy Name Allergy Type Status Severity Reaction(s) Onset Date Inactive Date Treating Clinician Comments Source SULFAMET HOXAZOLE DRUG INGREDI Active Unknown-Cmnt 08-02 00:00: 00 [facility] Sulfamet hoxazole Drug Allergy Active Unknown - See comments 08-02 00:00: 00 [facility] sulfamet hoxazole / trimetho prim sulfamet hoxazole / trimetho prim Active Unknown [facility] Social History Social Habit Start Date Stop Date Quantity Comments Source History of Tobacco Use Current Smoker [facility] Sex Assigned At [facility] Exposure to SARS-CoV-2 (event) 2021-07-23 00:00:00 2021-08-02 14:23:00 Not sure [facility] Smoking Status Start Date Stop Date Source Unknown if ever smoked [facility] Current Smoker 2021-09-10 00:00:00 [facility] Medications Ordered Medication Name Filled Medication Name [...] 1 dose, On Mon08/02/21 at 1615, SOHA [facility] ketorolac (TORADOL) injection 30 mg 08-02 21:15: 00 08-02 20:44 :00 No 30mg 30 mg, Intramuscu lar, ONCE, 1 dose, On Mon08/02/21 at 1615, Routine [facility] acetaminoph en-codeine 300-30 mg tablet 08-02 00:00: 00 08-10 04:59 :00 No 4647 1{tbl} Take 1 tablet by mouth every 6 (six) hours as needed for Pain (scale 4-6) for up to 7 days. Indication s: acute pain [facility] ProAir HFA ProAir HFA Yes Bobo Marie 2 puffs as needed [facility] Atorvastati n Calcium Atorvastati n Calcium Yes Bobo Marie 1 tablet [facility] Levothyroxi ne Sodium Levothyroxi ne Sodium Yes Bobo Marie 1 tablet on an empty stomach in the morning [facility] Amlodipine Besylate Amlodipine Besylate Yes Bobo Marie 1 tablet [facility] Levothyroxi ne Sodium 50 MCG Levothyroxi ne [...] No 1{table t} BID Entresto 49-51 MG ProAir HFA 108 (90 Base) MCG/ACT ProAir HFA 108 (90 Base) MCG/ACT No 2{puffs _as_nee ded} QID ProAir HFA 108 (90 Base) MCG/ACT Symbicort Symbicort 06-26 00:00 :00 No [facility] Marie 2 puffs [facility] Immunizations Ordered Immunization Name Filled Immunization Name Date Status Comments Source Moderna COVID-19 Vaccine Moderna COVID-19 Vaccine 2020-05-25 14:24:00 [facility]-19 Vaccine 2020-05-25 14:24:00 Completed [facility] Moderna COVID-19 Vaccine Moderna COVID-19 Vaccine 2020-05-25 14:24:00 Completed [facility] Moderna COVID-19 Vaccine Moderna COVID-19 Vaccine 2020-04-29 14:23:00 Completed [facility] Moderna COVID-19 Vaccine Moderna COVID-19 Vaccine 2020-04-29 14:23:00 Completed [facility] Moderna COVID-19 Vaccine Moderna COVID-19 Vaccine 2020-04-29 14:23:00 Completed [facility] Moderna COVID-19 Vaccine Moderna COVID-19 Vaccine Unknown Completed [facility] Vital Signs Vital Name Observation Time Observation Value Comments S ource Systolic blood pressure 2021-08-02 21:41:00 145 mm[Hg] [facility] Diastolic blood pressure 2021-08-02 21:41:00 90 mm[Hg] [facility] Heart rate 2021-08-02 21:41:00 58 /min [facility] Respiratory rate 2021-08-02 21:41:00 18 /min [facility] Oxygen saturation in Arterial blood by Pulse oximetry 2021-08-02 21:41:00 98 /min [facility] Body temperature 2021-08-02 19:30:00 37.17 Donna [facility] Body height 2021-08-02 19:30:00 177.8 cm [facility] Body weight 2021-08-02 19:30:00 62.143 kg [facility] BMI 2021-08-02 19:30:00 19.66 kg/m2 [facility] height 2021-07-02 07:50:00 69 [in_i] Commo n [facility] weight 2021-07-02 07:50:00 135 [lb_av] Comm on [facility] temperature 2021-07-02 07:50:00 98 [degF] Comm on [facility] bmi 2021-07-02 07:50:00 19.93 kg/m2 Comm on [facility] height 2021-06-16 09:00:00 69 [in_i] Commo n [facility] weight 2021-06-16 09:00:00 134.5 [lb_av] Co mmon [facility] temperature 2021-06-16 09:00:00 96.8 [degF] Com mon [facility] bmi 2021-06-16 09:00:00 19.86 kg/m2 Comm on [facility] oximetry 2021-06-16 09:00:00 97 % Commo n [facility] respiratory rate 2021-06-16 09:00:00 17 /min [facility] blood pressure systolic 2021-06-16 09:00:00 135 mm[Hg] [facility] blood pressure diastolic 2021-06-16 09:00:00 72 mm[Hg] Common [facility] height 2021-06-16 09:00:00 69 [in_i] Commo n [facility] weight 2021-06-16 09:00:00 134.5 [lb_av] Co mmon [facility] temperature 2021-06-16 09:00:00 96.8 [degF] Com mon [facility] bmi 2021-06-16 09:00:00 19.86 kg/m2 Comm on [facility] oximetry 2021-06-16 09:00:00 97 % Commo n [facility] respiratory rate 2021-06-16 09:00:00 17 /min Common [facility] blood pressure systolic 2021-06-16 09:00:00 135 mm[Hg] [facility] blood pressure diastolic 2021-06-16 09:00:00 72 mm[Hg] [facility] height 2021-03-03 14:20:00 69 [in_i] Commo n [facility] weight 2021-03-03 14:20:00 132.7 [lb_av] Co mmon [facility] temperature 2021-03-03 14:20:00 97.7 [degF] Com mon [facility] bmi 2021-03-03 14:20:00 19.59 kg/m2 Comm on [facility] oximetry 2021-03-03 14:20:00 95 % Commo n [facility] respiratory rate 2021-03-03 14:20:00 16 /min Common [facility] blood pressure systolic 2021-03-03 14:20:00 132 mm[Hg] Common [facility] blood pressure diastolic 2021-03-03 14:20:00 65 mm[Hg] Common [facility] height 2020-12-01 14:20:00 69 [in_i] Commo n [facility] weight 2020-12-01 14:20:00 132 [lb_av] Comm on [facility] temperature 2020-12-01 14:20:00 98 [degF] Comm on [facility] bmi 2020-12-01 14:20:00 19.49 kg/m2 Comm on [facility] blood pressure systolic 2020-12-01 14:20:00 130 mm[Hg] [facility] blood pressure diastolic 2020-12-01 14:20:00 76 mm[Hg] Common [facility] height 2020-09-16 14:10:00 69 [in_i] Commo n [facility] weight 2020-09-16 14:10:00 132.5 [lb_av] Co mmon [facility] temperature 2020-09-16 14:10:00 97.9 [degF] Com mon [facility] bmi 2020-09-16 14:10:00 19.56 kg/m2 Comm on [facility] oximetry 2020-09-16 14:10:00 97 % Commo n [facility] respiratory rate 2020-09-16 14:10:00 16 /min [facility] blood pressure systolic 2020-09-16 14:10:00 134 mm[Hg] [facility] blood pressure diastolic 2020-09-16 14:10:00 75 mm[Hg] [facility] Procedures Procedure Date / Time Performed Performing Clinicia n Source CONSENT/REFUSAL FOR DIAGNOSIS AND TREATMENT 2021-08-02 19:23:00 Doctor Unassigned, L[place] Encounters Start Date/Time End Date/Time Encounter Type Admission Type Attending [facility] Care Facility Care Department Encounter ID Source 2021-06-30 09:53:00 Outpatient Marie, [facility] ST[facility] STLC [id number] [facility] 2021-06-14 16:00:01 Outpatient Marie, Bobo STLC STLC [id number] [facility] 2021-06-07 14:36:01 Outpatient Marie, Bobo STLC STLMLC [id number] [facility] 2021-03-10 14:37:39 Outpatient Marie, Bobo STLC STLMLC [id number] [facility] 2021-03-10 14:02:27 Outpatient Marie, Bobo STLC STLMLC [id number] [facility] 2021-03-10 13:34:30 Outpatient Marie, Bobo STLC STLMLC [id number] [facility] 2021-03-10 13:00:43 Outpatient Marie, Bobo STLC STLMLC [id number] [facility] 2021-03-10 12:34:37 Outpatient Marie, Bobo STLC STLMLC [id number] [facility] 2021-03-10 12:33:55 Outpatient Marie, Bobo STLMLC STLMLC [id number] [facility] 2021-03-10 12:10:58 Outpatient Bobo Marie STLMLC STLMLC [id number] [facility] 2022-11-24 00:00:00 2022-11-24 00:00:00 (TEL) STLMLC STLMLC [id number] [facility] 2021-08-06 00:00:00 2021-08-06 00:00:00 (TEL) STLMLC STLMLC [id number] [facility] 2021-08-02 14:31:00 2021-08-02 16:42:00 Emergency X JUMA LYMAN [facility] ERT [id number] [facility] 2021-08-02 14:31:00 2021-08-02 16:42:00 Emergency Juma Lyman [facility] [id number] [facility] 2021-07-30 00:00:00 2021-07-30 00:00:00 (TEL) STLMLC STLMLC [id number] [facility] 2021-07-27 00:00:00 2021-07-27 00:00:00 (TEL) STLMLC STLMLC [id number] [facility] 2021-07-02 00:00:00 2021-07-02 00:00:00 OFFICE VISIT EST PT LEVEL 3 STLMLC STLMLC [id number] [facility] 2021-06-25 00:00:00 2021-06-25 00:00:00 (TEL) STLMLC STLMLC [id number] [facility] 2021-06-16 00:00:00 2021-06-16 00:00:00 OFFICE VISIT ESTAB PT LEVEL 4 STLMLC STLMLC [id number] [facility] 2021-06-16 00:00:00 2021-06-16 00:00:00 (TEL) STLMLC STLMLC [id number] [facility] 2021-06-16 00:00:00 2021-06-16 00:00:00 SUB ANNUAL MCR WELLNESS VISIT STLMLC STLMLC [id number] [facility] 2021-05-12 00:00:00 2021-05-12 00:00:00 (TEL) STLMLC STLMLC [id number] [facility] 2021-03-03 00:00:00 2021-03-03 00:00:00 OFFICE VISIT ESTAB PT LEVEL 4 STLMLC STLMLC [id number] [facility] 2021-02-23 00:00:00 2021-02-23 00:00:00 (TEL) STLMLC STLMLC [id number] [facility] 2020-12-01 00:00:00 2020-12-01 00:00:00 OFFICE VISIT EST PT LEVEL 3 STLMLC STLMLC [id number] [facility] 2020-09-16 00:00:00 2020-09-16 00:00:00 OFFICE VISIT ESTAB PT LEVEL 4 STLMLC STLMLC [id number] [facility] 2020-08-21 00:00:00 2020-08-21 00:00:00 (TEL) STLMLC STLMLC [id number] [facility] 2020-06-18 00:00:00 2020-06-18 00:00:00 Outpatient STLMLC STLMLC [id number] [facility] 2020-06-18 00:00:00 2020-06-18 00:00:00 Outpatient STLMLC STLMLC [id number] [facility] 2020-05-15 00:00:00 2020-05-15 00:00:00 Outpatient STLMLC STLMLC [id number] [facility] 2020-04-13 00:00:00 2020-04-13 00:00:00 Outpatient STLMLC STLMLC [id number] [facility] 2020-02-19 00:00:00 2020-02-19 00:00:00 Outpatient STLMLC STLMLC [id number] [facility] 2020-01-16 00:00:00 2020-01-16 00:00:00 Outpatient STLMLC STLMLC [id number] [facility] 2018-06-20 11:30:00 2018-06-20 11:30:00 [facility] [id number] [facility] 2018-03-28 14:30:00 2018-03-28 14:30:00 [facility] [id number] [facility] 2018-01-24 08:45:00 2018-01-24 08:45:00 [facility] Medicine [id number] [facility] 2017-11-21 14:37:00 2017-11-21 14:37:00 [facility] [id number] [facility] 2017-11-20 13:09:00 2017-11-20 13:09:00 [facility] Medicine [id number] [facility] 2017-11-15 13:30:00 2017-11-15 13:30:00 [facility] Medicine [id number] [facility]
[2024-11-27] MEDS ORDERED: CEFTRIAXONE 1000 MG/VIAL ONE (11:02)
[2024-11-27] MEDS ORDERED: LEVALBUTEROL 1.25 MG/3 ML NEB ONE ×2 (11:03→12:23)
[2024-11-27] MEDS ORDERED: NA CHLORIDE 0.9% 0 ML ONE (11:03)
[2024-11-27] MEDS ORDERED: FAMOTIDINE 20 MG/2 ML VIAL IV ONE (11:03)
[2024-11-27] MEDS ORDERED: METHYLPREDNISOLONE 125 MG INJ ONE (11:03)
[2024-11-27] MEDS ORDERED: IPRATROPIUM BROM 0.5MG/2.5ML ONE (11:03)
[2024-11-27 11:05] LABS: Absolute Lymphocytes (CBC) 1.7 K/uL (0.7-4.9); Hematocrit 42.2 % (39.6-49.0); Hemoglobin 13.8 g/dL (13.6-17.9); MCH 30.5 pg (27.0-35.0); MCHC 32.8 g/dL (32.0-36.0); MCV 93.0 fL (80-100); MPV 6.9 fL (7.6-11.3); Nucleated RBC Absolute Count 0.0 (0-0); Nucleated Red Blood Cells % 0.0 % (0-0); RBC Red Blood Cell Count 4.53 M/uL (4.33-5.43); White Blood Count 7.30 thou/uL (4.3-10.9)
[2024-11-27 11:13] LABS: PT Prothrombin Time 12.5 SECONDS (10-13.0); Protime INR 1.11
[2024-11-27 11:28] LABS: ALT/SGPT 86 U/L (16-61); AST/SGOT 43 U/L (15-37); Albumin 3.4 g/dL (3.4-5.0); Albumin/Globulin Ratio 1.1 (1.1-1.8); Alkaline Phosphatase 89 U/L (45-117); Anion Gap 10.7 mEq/L (5.0-15.0); BUN Blood Urea Nitrogen 35 mg/dL (7-18); Globulin 3.1 g/dL (2.3-3.5); Glucose Level 111 mg/dL (74-106); Magnesium 1.9 mg/dL (1.6-2.4); NT PRO-BNP 578 pg/mL (<450); Potassium 3.7 mEq/L (3.5-5.1); Troponin High Sensitivity 53.4 pg/mL (<58.9)
[2024-11-27 11:31] LABS: Bilirubin Indirect, Calculated 0.2 mg/dL (0.2-0.8)
--- NOTE | 2024-11-27 11:37 | EDPHYS ---
Physician Documentation [facility] Name: Tucker Jackson Age: 84 yrs Sex: Male : 1940 Arrival Date: 11/27/2024 Time: 10:29 Bed 5 Private MD: ED Physician Jorge Michel HPI: 11/27 11:29 This 84 yrs old Male presents to ER via EMS with complaints of Breathing olaf Difficulty, Shortness Of Breath. 11:29 The patient has shortness of breath at rest, with light activity. Onset: The olaf symptoms/episode began/occurred 2 day(s) ago. Duration: The symptoms are continuous, and are steadily getting worse. The patient's shortness of breath has no apparent modifying factors. Associated signs and symptoms: Pertinent positives: non-productive cough. Severity of symptoms: At their worst the symptoms were moderate in the emergency department the symptoms have improved mildly. The patient has experienced similar episodes in the past, multiple times. Historical: - Allergies: 10:38 Sulfa (Sulfonamide Antibiotics); db - PMHx: 10:38 COPD; Hypertension; Myocardial infarction; db - PSHx: 10:38 Appendectomy; stents in legs; db - Immunization history:: Adult Immunizations unknown. - Infectious Disease History:: Denies. - Social history:: Smoking status: Patient reports the use of cigarette tobacco products, Patient/guardian denies using tobacco, Stopped _ months ago .5. - Family history:: not pertinent. ROS: 11:29 Constitutional: Negative for fever, chills, and weight loss, Eyes: Negative for injury, olaf pain, redness, and discharge, ENT: Negative for injury, pain, and discharge, Neck: Negative for injury, pain, and swelling, Cardiovascular: Negative for chest pain, palpitations, and edema, Abdomen/GI: Negative for abdominal pain, nausea, vomiting, diarrhea, and constipation, Back: Negative for injury and pain, : Negative for injury, bleeding, discharge, and swelling, MS/Extremity: Negative for injury and deformity, Skin: Negative for injury, rash, and discoloration, Neuro: Negative for headache, weakness, numbness, tingling, and seizure, Psych: Negative for depression, anxiety, suicide ideation, homicidal ideation, and hallucinations, Allergy/Immunology: Negative for hives, rash, and allergies, Endocrine: Negative for neck swelling, polydipsia, polyuria, polyphagia, and marked weight changes, Hematologic/Lymphatic: Negative for swollen nodes, abnormal bleeding, and unusual bruising, 11:29 Respiratory: Positive for cough, shortness of breath, wheezing, inspiratory, expiratory, Exam: 11:29 Constitutional: This is a well developed, well nourished patient who is awake, alert, olaf and in no acute distress. Head/Face: Normocephalic, atraumatic. Eyes: Pupils equal round and reactive to light, extra-ocular motions intact. Lids and lashes normal. Conjunctiva and sclera are non-icteric and not injected. Cornea within normal limits. Periorbital areas with no swelling, redness, or edema. ENT: Nares patent. No nasal discharge, no septal abnormalities noted. Tympanic membranes are normal and external auditory canals are clear. Oropharynx with no redness, swelling, or masses, exudates, or evidence of obstruction, uvula midline. Mucous membranes moist. Neck: Trachea midline, no thyromegaly or masses palpated, and no cervical lymphadenopathy. Supple, full range of motion without nuchal rigidity, or vertebral point tenderness. No Meningismus. Chest/axilla: Normal chest wall appearance and motion. Nontender with no deformity. No lesions are appreciated. Cardiovascular: Regular rate and rhythm with a normal S1 and S2. No gallops, murmurs, or rubs. Normal PMI, no JVD. No pulse deficits. Abdomen/GI: Soft, non-tender, with normal bowel sounds. No distension or tympany. No guarding or rebound. No evidence of tenderness throughout. Back: No spinal tenderness. No costovertebral tenderness. Full range of motion. Male : Normal genitalia with no discharge or lesions. Skin: Warm, dry with normal turgor. Normal color with no rashes, no lesions, and no evidence of cellulitis. MS/ Extremity: Pulses equal, no cyanosis. Neurovascular intact. Full, normal range of motion., bilateral aka Neuro: Awake and alert, GCS 15, oriented to person, place, time, and situation. Cranial nerves II-XII grossly intact. Motor strength 5/5 in all extremities. Sensory grossly intact. Cerebellar exam normal. Normal gait. Psych: Awake, alert, with orientation to person, place and time. Behavior, mood, and affect are within normal limits. 11:29 ECG was reviewed by the Attending Physician. 11:32 ECG was reviewed by the Attending Physician. [facility] Vital Signs: 10:25 BP 145 / 113; Pulse 103; Resp 14; Temp 97.9; Pulse Ox 99% ; Weight 64.86 kg; Height 5 db ft. 10 in. ; 10:52 BP 154 / 94; Pulse 95; Resp 14; Pulse Ox 94% on 2 lpm NC; db 11:30 BP 141 / 88; Pulse 98; Resp 18; Pulse Ox 100% on Nebulizer Mask; db 12:00 BP 143 / 84; Pulse 96; Resp 18; Pulse Ox 100% ; db 13:30 BP 146 / 74; Pulse 107; Resp 20; Pulse Ox 98% on R/A; db 14:30 BP 130 / 74; Pulse 102; Resp 20; Pulse Ox 98% on 2 lpm NC; db 10:25 Body Mass Index 20.52 (64.86 kg, 177.8 cm) db MDM: 10:32 Medical Screening Exam initiated [facility] 11:33 Differential diagnosis: Anemia Anxiety Reaction asthma, Bronchitis CHF exacerbation, [facility] Chronic Obstructive Pulmonary Disease Myocardial Infarction pneumonia, Pneumothorax Psychogenic pulmonary edema, Pulmonary Embolism reactive airway disease, Sepsis Unstable Angina. Antibiotic administration: Rocephin and Zithromax given. Immunization status: Pneumococcal vaccine: within last 5 years. Influenza vaccine: within last 5 years. Data reviewed: vital signs, nurses notes, EMS record, lab test result(s), EKG, radiologic studies, plain films. Consideration of Admission/Observation Patient was admitted/placed on observation. Escalation of care including admission/observation considered. I considered the following discharge prescriptions or medication management in the emergency department Medications were administered in the Emergency Department. See MAR. Independent interpretation of the following test(s) in the Emergency Department EKG: See my EKG interpretation above. Test considered but Not performed: CT: no ct chest pe. Historians other than the Patient: Spouse/Significant Other: well informed. Care significantly affected by the following chronic conditions: Hypertension, Chronic Obstructive Pulmonary Disease, cad/ mi. 11/27 10:34 Order name: Basic Metabolic Panel; Complete Time: 11:36 [facility] 11/27 10:34 Order name: CBC with Diff; Complete Time: 11:28 [facility] 11/27 10:34 Order name: LFT's; Complete Time: 11:36 [facility] 11/27 10:34 Order name: Magnesium; Complete Time: 11:36 [facility] 11/27 10:34 Order name: NT PRO-BNP; Complete Time: 11:36 [facility] 11/27 10:34 Order name: PT-INR; Complete Time: 11:28 [facility] 11/27 10:34 Order name: Troponin HS; Complete Time: 11:36 [facility] 11/27 10:34 Order name: Blood Culture Adult (2) [facility] 11/27 10:34 Order name: Lactate w/ 2H reflex if indic.; Complete Time: 11:36 [facility] 11/27 11:32 Order name: COVID-19 Ag + Flu A+B Ag bd 11/27 16:43 Order name: Troponin High Sensitivity EDCT 11/27 10:34 Order name: XRAY Chest (1 view) [facility] 11/27 11:58 Order name: CONS Physician Consult [facility] 11/27 10:34 Order name: Cardiac monitoring; Complete Time: 10:58 [facility] 11/27 10:34 Order name: EKG - Nurse/Tech; Complete Time: 10:59 [facility] 11/27 10:34 Order name: IV Saline Lock; Complete Time: 10:59 [facility] 11/27 10:34 Order name: Labs collected and sent; Complete Time: 10:59 [facility] 11/27 10:34 Order name: O2 Per Protocol; Complete Time: 10:59 [facility] 11/27 10:34 Order name: O2 Sat Monitoring; Complete Time: 10:59 [facility] EC:32 Rate is 95 beats/min. Rhythm is regular. QRS [place] is Normal. CT interval is normal. QRS olaf interval is normal. QT interval is prolonged at 480 msec. No Q waves. T waves are Normal. No ST changes noted. Clinical impression: NSR w/ Non-specific ST/T Changes and No evidence of ischemia. Interpreted by me. Reviewed by me. Administered Medications: 11:05 Drug: Levalbuterol Inhalation 3.75 mg Inhalation once Route: Inhalation; db 12:35 Follow up: Response: No adverse reaction db 11:05 Drug: Ipratropium Inhalation Aerosol 0.5 mg Inhalation once Route: Inhalation; db 12:35 Follow up: Response: No adverse reaction db 11:09 Drug: Rocephin IV 1 grams IV at per protocol once; Given slow IV push per pharmacy db instructions Route: IV; Rate: per protocol; Site: left antecubital; 12:35 Follow up: Response: No adverse reaction; IV Status: Completed infusion; IV Intake: 10mldb 11:14 Drug: MethylPrednisoLONE IVP 125 mg IVP once Route: IVP; Site: left antecubital; db 12:35 Follow up: Response: No adverse reaction db 11:15 Drug: Famotidine IVP 20 mg IVP once; dilute with 10 mL 0.9% NaCl; give over 2 minutes db Route: IVP; Site: left antecubital; 12:35 Follow up: Response: No adverse reaction db 11:26 Not Given (Physician Discretion): ns 0.9% 1000 ml IV at 1 bolus Per protocol; to be db given as a bolus over 60 minutes 12:15 Drug: Magnesium Sulfate IVPB 2 grams IVPB once over 1 hrs Route: IVPB; Infused Over: 1 db hrs; Site: left antecubital; 14:31 Follow up: Response: No adverse reaction; IV Status: Completed infusion; IV Intake: db 100ml 12:15 Drug: Levalbuterol Inhalation 2.5 mg Inhalation once Route: Inhalation; db 12:57 Drug: Clopidogrel PO 75 mg PO once Route: PO; db 15:17 Follow up: Response: No adverse reaction db 12:57 Drug: Aspirin PO Chewable Tablet 81 mg PO once Route: PO; db 15:17 Follow up: Response: No adverse reaction db 12:57 Drug: Acetaminophen PO 975 mg PO once Route: PO; db 15:17 Follow up: Response: No adverse reaction db 14:22 Drug: fentaNYL (PF) IVP 25 mcg IVP once Route: IVP; Site: left antecubital; db 15:17 Follow up: Response: No adverse reaction; Pain is decreased db 14:22 Drug: Ondansetron IVP 4 mg IVP once; over 2 minutes Route: IVP; Site: left antecubital; db 15:17 Follow up: Response: No adverse reaction db 15:18 Not Given (Patient Refused): fentanyl (pf)25 mcg IVP once db Disposition: 11:33 Critical Care:. olaf Disposition Summary: 11/27/24 11:36 Hospitalization Ordered Notes: Hospitalization Status: Inpatient Admission olaf Condition: Fair olaf Problem: new olaf Symptoms: have improved olaf Bed/Room Type: Standard olaf Provider: Waqas Glover(11/27/24 14:46) bd Location: Telemetry/MedSurg (Inpatient)(11/27/24 14:52) bd Room Assignment: 204(11/27/24 14:52) bd Diagnosis - Dyspnea olaf - COPD/ Chronic obstructive pulmonary disease with (acute) exacerbation olaf Forms: - Medication Reconciliation Form olaf - SBAR form olaf - Leadership Thank You Letter olaf Critical care time excluding procedures: 11:33 Critical care time: Bedside Care: 25 minutes, Consultation: 10 minutes, Family olaf Intervention: 5 minutes. Total time: 40 minutes Signatures: Dispatcher [employer] EDMS Brittany Funes Corey, MD MD cha Bradberry, Kelly, RN RN kb3 Gianna Larsen, RN RN db Corrections: (The following items were deleted from the chart) 10:35 10:35 BASIC METABOLIC PANEL+C.LAB.BRZ ordered. EDMS EDMS 10:35 10:35 CBC+H.LAB.BRZ ordered. EDMS EDMS 10:35 10:35 HEPATIC FUNCTION+C.LAB.BRZ ordered. EDMS EDMS 10:35 10:35 MAGNESIUM+C.LAB.BRZ ordered. EDMS EDMS 10:35 10:35 PROBNP+C.LAB.BRZ ordered. EDMS EDMS 10:35 10:35 PROTIME (+INR)+COAG.LAB.BRZ ordered. EDMS EDMS 10:35 10:35 Troponin High Sensitivity+C.LAB.BRZ ordered. EDMS EDMS 10:35 10:35 BLOOD CULTURE*+BA.LAB.BRZ ordered. EDMS EDMS 10:35 10:35 LACTATE+C.LAB.BRZ ordered. EDMS EDMS 10:35 10:35 Chest Single View+RAD.RAD.BRZ ordered. EDMS EDMS 11:33 11:29 Rate is 95 beats/min. Rhythm is regular. QRS [place] is Normal. CT interval is olaf normal. QRS interval is normal. QT interval is normal. No Q waves. T waves are Normal. No ST changes noted. Clinical impression: NSR w/ Non-specific ST/T Changes and No evidence of ischemia. Interpreted by me. Reviewed by me. olaf 12:23 11:36 Telemetry/MedSurg (Inpatient) olaf kb3 12:23 11:36 olaf kb3 14:46 11:36 Murphy Leblanc olaf bd 14:52 12:23 [facility] ER HOLD kb3 bd 14:52 12:23 ERHOLD- kb3 bd
--- NOTE | 2024-11-27 11:37 | ER ---
Nurse's Notes [facility] Name: Tucker Jackson Age: 84 yrs Sex: Male : 1940 Arrival Date: 11/27/2024 Time: 10:29 Bed 5 Private MD: Diagnosis: Dyspnea;COPD/ Chronic obstructive pulmonary disease with (acute) exacerbation Presentation: 11/27 10:25 Chief complaint: EMS states: DIFFICULTY BREATHING AT HOME ON HOME O2 THAT WAS NOT db WORKING. UPON EMS ARRIVAL PT WAS TRIPOD POSITION. HR 132, BP 210/130. CYANOTIC IN RESPIRATORY DISTRESS. PT NOW CALM. Coronavirus screen: Client denies travel out of the [place] in the last 14 days. At this time, the client does not indicate any symptoms associated with coronavirus-19. Ebola Screen: Patient negative for fever greater than or equal to 101.5 degrees Fahrenheit, and additional compatible Ebola Virus Disease symptoms Patient denies exposure to infectious person. Patient denies travel to an Ebola-affected area in the 21 days before illness onset. No symptoms or risks identified at this time. Initial Sepsis Screen: Does the patient meet any 2 criteria? No. Patient's initial sepsis screen is negative. Does the patient have a suspected source of infection? No. Patient's initial sepsis screen is negative. Risk Assessment: Do you want to hurt yourself or someone else? Patient reports no desire to harm self or others. 10:25 Method Of Arrival: EMS: [facility] db 10:25 Acuity: TIFFANY 2 db 10:25 Onset of symptoms was November 27, 2024. Care prior to arrival: db 10:25 Care prior to arrival: IV initiated. 20 GA, in the left antecubital area, Oxygen db administered. via a non-rebreather mask. Triage Assessment: 10:38 General: Appears in no apparent distress. comfortable, Behavior is calm, cooperative. db Pain: Denies pain. Neuro: Level of Consciousness is awake, alert, obeys commands, Oriented to person, place, time, situation. Respiratory: Reports shortness of breath cough that is Onset: The symptoms/episode began/occurred gradually, the patient has mild shortness of breath. Historical: - Allergies: 10:38 Sulfa (Sulfonamide Antibiotics); db - PMHx: 10:38 COPD; Hypertension; Myocardial infarction; db - PSHx: 10:38 Appendectomy; stents in legs; db - Immunization history:: Adult Immunizations unknown. - Infectious Disease History:: Denies. - Social history:: Smoking status: Patient reports the use of cigarette tobacco products, Patient/guardian denies using tobacco, Stopped _ months ago .5. - Family history:: not pertinent. Screenin:10 [facility] ED Fall Risk Assessment (Adult) History of falling in the last 3 months, db including since admission No falls in past 3 months (0 pts) Confusion or Disorientation No (0 pts) Intoxicated or Sedated No (0 pts) Impaired Gait No (0 pts) Mobility Assist Device Used No (0 pt) Altered Elimination No (0 pt) Score/Fall Risk Level 0 - 2 = Low Risk Oriented to surroundings, Maintained a safe environment. Abuse screen: Denies threats or abuse. Denies injuries from another. Nutritional screening: No deficits noted. Tuberculosis screening: No symptoms or risk factors identified. Assessment: 10:35 Reassessment: SEE TRIAGE FOR INITIAL ASSESSMENT. db 11:00 Reassessment: Patient appears in no apparent distress at this time. Patient and/or db family updated on plan of care and expected duration. Pain level reassessed. Patient is alert, oriented x 3, equal unlabored respirations, skin warm/dry/pink. General: Appears in no apparent distress. Behavior is cooperative. Neuro: Level of Consciousness is awake, alert, obeys commands, Oriented to person, place, time, situation. Respiratory: Reports shortness of breath BREATHING TREATMENT GOING. 12:00 Reassessment: Patient appears in no apparent distress at this time. Patient and/or db family updated on plan of care and expected duration. Pain level reassessed. Patient is alert, oriented x 3, equal unlabored respirations, skin warm/dry/pink. 13:00 Reassessment: Patient appears in no apparent distress at this time. Patient and/or db family updated on plan of care and expected duration. Pain level reassessed. Patient is alert, oriented x 3, equal unlabored respirations, skin warm/dry/pink. 14:00 Reassessment: Patient appears in no apparent distress at this time. Patient and/or db family updated on plan of care and expected duration. Pain level reassessed. Patient is alert, oriented x 3, equal unlabored respirations, skin warm/dry/pink. Patient states feeling better. 15:00 Reassessment: Patient appears in no apparent distress at this time. Patient and/or db family updated on plan of care and expected duration. Pain level reassessed. Patient is alert, oriented x 3, equal unlabored respirations, skin warm/dry/pink. FAMILY IS AT BEDSIDE. 16:30 Reassessment: Patient appears in no apparent distress at this time. Patient and/or db family updated on plan of care and expected duration. Pain level reassessed. Patient is alert, oriented x 3, equal unlabored respirations, skin warm/dry/pink. Patient states feeling better. Patient states symptoms have improved. General: Appears in no apparent distress. comfortable. Cardiovascular: Rhythm is sinus rhythm. Respiratory: Airway is patent Respiratory effort is even, unlabored, Vital Signs: 10:25 BP 145 / 113; Pulse 103; Resp 14; Temp 97.9; Pulse Ox 99% ; Weight 64.86 kg; Height 5 db ft. 10 in. ; 10:52 BP 154 / 94; Pulse 95; Resp 14; Pulse Ox 94% on 2 lpm NC; db 11:30 BP 141 / 88; Pulse 98; Resp 18; Pulse Ox 100% on Nebulizer Mask; db 12:00 BP 143 / 84; Pulse 96; Resp 18; Pulse Ox 100% ; db 13:30 BP 146 / 74; Pulse 107; Resp 20; Pulse Ox 98% on R/A; db 14:30 BP 130 / 74; Pulse 102; Resp 20; Pulse Ox 98% on 2 lpm NC; db 10:25 Body Mass Index 20.52 (64.86 kg, 177.8 cm) db ED Course: 10:30 Arm band placed on Patient placed in an exam room. db 10:31 Patient arrived in ED. db 10:32 Jorge Michel MD is Attending Physician. olaf 10:35 Triage completed. db 10:37 Gianna Larsen RN is Primary Nurse. db 10:41 Maintain EMS IV. Dressing intact. Good blood return noted. Site clean \T\ dry. Gauge \T\ db site: 20 G LAC. 10:54 Initial lab(s) drawn, by me, sent to lab. Second set of blood cultures drawn EKG done. db 11:35 Murphy Leblanc MD is Hospitalizing Provider. olaf 11:42 XRAY Chest (1 view) In Process Unspecified. EDMS 12:10 Patient has correct armband on for positive identification. Bed in low position. Call db light in reach. Side rails up X2. Client placed on continuous cardiac and pulse oximetry monitoring. NIBP monitoring applied. quality assurance monitor chassis on. Pulse ox on. NIBP on. Warm blanket given. Pillow given. 14:45 Hospitalizing Provider role handed off by Murphy Leblanc MD bd 14:45 Waqas Glover MD is Hospitalizing Provider. bd 16:30 Provided Education on: ADMISSION. db 16:30 No provider procedures requiring assistance completed. Patient admitted, IV remains in db place. Administered Medications: 11:05 Drug: Levalbuterol Inhalation 3.75 mg Inhalation once Route: Inhalation; db 12:35 Follow up: Response: No adverse reaction db 11:05 Drug: Ipratropium Inhalation Aerosol 0.5 mg Inhalation once Route: Inhalation; db 12:35 Follow up: Response: No adverse reaction db 11:09 Drug: Rocephin IV 1 grams IV at per protocol once; Given slow IV push per pharmacy db instructions Route: IV; Rate: per protocol; Site: left antecubital; 12:35 Follow up: Response: No adverse reaction; IV Status: Completed infusion; IV Intake: 10mldb 11:14 Drug: MethylPrednisoLONE IVP 125 mg IVP once Route: IVP; Site: left antecubital; db 12:35 Follow up: Response: No adverse reaction db 11:15 Drug: Famotidine IVP 20 mg IVP once; dilute with 10 mL 0.9% NaCl; give over 2 minutes db Route: IVP; Site: left antecubital; 12:35 Follow up: Response: No adverse reaction db 11:26 Not Given (Physician Discretion): ns 0.9% 1000 ml IV at 1 bolus Per protocol; to be db given as a bolus over 60 minutes 12:15 Drug: Magnesium Sulfate IVPB 2 grams IVPB once over 1 hrs Route: IVPB; Infused Over: 1 db hrs; Site: left antecubital; 14:31 Follow up: Response: No adverse reaction; IV Status: Completed infusion; IV Intake: db 100ml 12:15 Drug: Levalbuterol Inhalation 2.5 mg Inhalation once Route: Inhalation; db 12:57 Drug: Clopidogrel PO 75 mg PO once Route: PO; db 15:17 Follow up: Response: No adverse reaction db 12:57 Drug: Aspirin PO Chewable Tablet 81 mg PO once Route: PO; db 15:17 Follow up: Response: No adverse reaction db 12:57 Drug: Acetaminophen PO 975 mg PO once Route: PO; db 15:17 Follow up: Response: No adverse reaction db 14:22 Drug: fentaNYL (PF) IVP 25 mcg IVP once Route: IVP; Site: left antecubital; db 15:17 Follow up: Response: No adverse reaction; Pain is decreased db 14:22 Drug: Ondansetron IVP 4 mg IVP once; over 2 minutes Route: IVP; Site: left antecubital; db 15:17 Follow up: Response: No adverse reaction db 15:18 Not Given (Patient Refused): fentanyl (pf)25 mcg IVP once db Medication: 16:30 VIS not applicable for this client. db Intake: 12:35 IV: 10ml; Total: 10ml. db 14:31 IV: 100ml; Total: 110ml. db Outcome: 11:36 Decision to Hospitalize by Provider. olaf 16:30 Admitted to Med/surg db 16:30 Condition: stable 16:30 Instructed on the need for admit, 16:46 Patient left the ED. ts3 Signatures: Dispatcher [employer] EDMS Brittany Funes Corey, MD MD cha Benton, Danielle RN RN Nathalie Rivera ts3
--- NOTE | 2024-11-27 11:47 | RAD REPORT ---
Procedure: Chest Single View HISTORY: Cough COMPARISON: 2023 FINDINGS: The lungs appear clear of acute infiltrate. Lungs are moderately to markedly hyperaerated consistent with COPD. No significant pleural effusion noted. The heart is normal size. IMPRESSION: No acute abnormality is displayed.
[2024-11-27] MEDS ORDERED: Magnesium Sulfate 2gm IVPB 2 G/50 ML BAG IV ONE (12:23)
[2024-11-27] MEDS ORDERED: ASPIRIN 81 MG CHEWABLE TABLET ONE (12:41)
[2024-11-27] MEDS ORDERED: ACETAMINOPHEN 325 MG TABLET ONE (12:41)
[2024-11-27] MEDS ORDERED: CLOPIDOGREL 75 MG TABLET ONE (12:41)
[2024-11-27 12:53] LABS: Influenza A Ag Negative; Influenza B Ag Negative; SARS-CoV-2 Antigen Rapid Res Negative (Negative)
[2024-11-27] MEDS ORDERED: IPRATROPIUM BROM 0.5MG/2.5ML NEB PRN (13:34)
[2024-11-27] MEDS ORDERED: ACETAMINOPHEN 325 MG TABLET PO PRN (13:34)
[2024-11-27] MEDS ORDERED: ONDANSETRON 4 MG/2 ML VIAL IV PRN (13:34)
[2024-11-27] MEDS ORDERED: MORPHINE 4 MG/ML SYR IV PRN (13:34)
[2024-11-27] MEDS: METHYLPREDNISOLONE 40 MG INJ IV SCH (13:34)
[2024-11-27] MEDS ORDERED: ALBUTEROL 2.5 MG/3 ML NEB SOL NEB PRN (13:34)
[2024-11-27] MEDS ORDERED: FENTANYL CITR 100 MCG/2 ML ONE (14:23)
[2024-11-27] MEDS ORDERED: ONDANSETRON 4 MG/2 ML VIAL ONE (14:23)
[2024-11-27 16:22] VITALS: BMI 20.5
[2024-11-27] MEDS ORDERED: FLU (Fluarix) 25-26 (6MOS UP)/PF 45 MCG/0.5 ML Syringe IM ONE (17:15)
[2024-11-28 05:33] LABS: Absolute Lymphocytes (CBC) 0.9 K/uL (0.7-4.9); Hematocrit 38.7 % (39.6-49.0); Hemoglobin 13.2 g/dL (13.6-17.9); MCH 31.4 pg (27.0-35.0); MCHC 34.1 g/dL (32.0-36.0); MCV 92.1 fL (80-100); MPV 6.8 fL (7.6-11.3); Nucleated RBC Absolute Count 0.0 (0-0); Nucleated Red Blood Cells % 0.0 % (0-0); RBC Red Blood Cell Count 4.20 M/uL (4.33-5.43); White Blood Count 8.30 thou/uL (4.3-10.9)
[2024-11-28 05:51] LABS: Anion Gap 7.6 mEq/L (5.0-15.0); BUN Blood Urea Nitrogen 37.0 mg/dL (7-18); Glucose Level 148.0 mg/dL (74-106); NT PRO-BNP 3988.0 pg/mL (<450); Potassium 4.6 mEq/L (3.5-5.1)
[2024-11-28 05:52] LABS: Troponin High Sensitivity 160.3 pg/mL (<58.9)
[2024-11-28 06:02] LABS: Blood Morphology Comment NOT SEEN (NOT SEEN); Differential Total Cells Count 100; Segmented Neutrophils 67 % (40-80)
--- NOTE | 2024-11-28 06:55 | RAD REPORT ---
Procedure: Chest Single View HISTORY: Chest pain COMPARISON: November 27, 2024 FINDINGS: The lungs appear clear of acute infiltrate. Lungs are hyperaerated. No significant pleural effusion noted. The heart is normal size. IMPRESSION: No acute abnormality is displayed.
[2024-11-28 09:04] VITALS: O2SAT 96
[2024-11-28] MEDS: ASPIRIN EC 81 MG TAB PO SCH (09:17)
[2024-11-28] MEDS: CLOPIDOGREL 75 MG TABLET PO SCH (09:17)
[2024-11-28] MEDS: FLU (Fluarix) 25-26 (6MOS UP)/PF 45 MCG/0.5 ML Syringe IM ONE (09:17)
[2024-11-28] MEDS: CEFTRIAXONE 1,000 MG in NA CHLORIDE 0.9% 50 ML IVPB SCH (09:18)
--- NOTE | 2024-11-28 11:31 | P.CNS ---
Date of Consult: 11/28/24 Chief Complaint: shortness of breath History of Present Illness: Patient with PMH of heart failure, Advanced COPD, presented with worsening SOB, KIRAN, denies chest pain, no palpitations, no syncope. Allergies Sulfa (Sulfonamide Antibiotics) Allergy (Verified 06/27/23 03:53) tingling, deep muscle pain sulfamethoxazole [From Octra] Adverse Reaction (Intermediate, Verified 06/27/23 03:53) Anaphylaxis trimethoprim [From ] Adverse Reaction (Intermediate, Verified 06/27/23 03:53) Anaphylaxis Home medications list reviewed: Yes Home Medications: Albuterol Sulfate [Proair Hfa] 2 puff IH Q4HP PRN 04/24/22 Amlodipine Besylate 5 mg PO BEDTIME 04/24/22 Ipratropium/Albuterol Sulfate [Iprat-Albut 0.5-3(2.5) mg/3 ml] 3 ml IH DAILY 04/24/22 Levothyroxine Sodium 25 mcg PO DAILY 04/24/22 Ca Citrate/Mgox/Vit D3/B6/Min [Citracal Plus Tablet] 1 each PO DAILY 06/27/23 Fluticasone Propion/Salmeterol [Wixela 250-50 Inhub] 1 puff IH BID 06/27/23 Fluticasone Propionate [Allergy Relief] 1 spray NS BID 06/27/23 Metoprolol Succinate [Toprol Xl] 50 mg PO DAILY 06/27/23 Multivitamin/Iron/Folic Acid [Centrum Adults Tablet] 1 each PO DAILY 06/27/23 Sertraline HCl 25 mg PO BEDTIME 06/27/23 buPROPion HCL [Bupropion Xl] 300 mg PO DAILY 06/27/23 Atorvastatin Calcium [Lipitor] 40 mg PO BEDTIME #90 tab 06/29/23 Clopidogrel Bisulfate [Plavix*] 75 mg PO DAILY #90 06/29/23 Sacubitril/Valsartan [Entresto 49 mg-51 mg Tablet] 1 tab PO BID tab 06/29/23 Zolpidem Tartrate [Ambien*] 5 mg PO BEDTIME PRN PRN 06/29/23 Mirtazapine 7.5 mg PO BEDTIME 11/27/24 - Past Medical/Surgical History Diabetic: No -: HTN -: COPD -: [place] -: COVID -: vein bypass in lower legs -: appendectomy -: disk in back of neck -: cataract surgery - Social History Smoking Status: Current some day smoker Alcohol use: No CD- Drugs: Yes Caffeine use: Yes Review of Systems 10-point ROS is otherwise unremarkable Physical Examination Temp Pulse Resp BP Pulse Ox 97.7 F 77 14 117/61 96 11/28/24 08:00 11/28/24 08:00 11/28/24 08:00 11/28/24 08:00 11/28/24 08:00 General: Alert, In no apparent distress HEENT: Atraumatic, PERRLA, Mucous membr. moist/pink, EOMI, Sclerae nonicteric Neck: Supple, 2+ carotid pulse no bruit, No LAD, Without JVD or thyroid abnormality Respiratory: Clear to auscultation bilaterally, Normal air movement Cardiovascular: Regular rate/rhythm, Normal S1 S2 Gastrointestinal: Normal bowel sounds, No tenderness Musculoskeletal: No tenderness Integumentary: No rashes Neurological: Normal gait, Normal speech, Normal tone, Normal affect Lymphatics: No axilla or inguinal lymphadenopathy Laboratory Data (last 24 hrs) 11/27/24 10:54 Sodium 143 Potassium 3.7 BUN 35 H Creatinine 1.65 H Glucose 111 H Magnesium 1.9 Total Bilirubin 0.4 AST 43 H ALT 86 H Alkaline Phosphatase 89 - Problems (1) NSTEMI (non-ST elevated myocardial infarction) Current Visit: Yes Status: Acute Plan: patient with mild leak of troponin, down trending, no significant EKG changes. outpatient follow up with cardiology for updated cardiac PET. continue ASA, Plavix. continue to follow up with cardiology. (2) Chronic heart failure Current Visit: Yes Status: Acute Plan: contnue Toprol XL 50 mg daily continue Entresto 49 mg po BID continue to monitor input and output and electrolytes. (3) COPD exacerbation Current Visit: No Status: Acute Plan: per primary team.
[2024-11-28 12:27] VITALS: BP 127/61; TEMP 98
== END 2024-11-28 15:31 | disposition home or self-care (01) | DRG 190 ==
LOC: ER 10:29 → ERHOLD 11:54 → 2ND 16:17
PROVIDERS: ADMIT Internal Medicine; ATTEND Hospitalist
DX: J44.1 Chronic obstructive pulmonary disease with (acute) exacerbation (principal); I21.4 Non-ST elevation (NSTEMI) myocardial infarction; I11.0 Hypertensive heart disease with heart failure; I50.9 Heart failure, unspecified; I25.2 Old myocardial infarction; I25.10 Atherosclerotic heart disease of native coronary artery without angina pectoris; F17.210 Nicotine dependence, cigarettes, uncomplicated; Z88.2 Allergy status to sulfonamides; Z90.49 Acquired absence of other specified parts of digestive tract; Z88.1 Allergy status to other antibiotic agents; Z79.890 Hormone replacement therapy; Z79.02 Long term (current) use of antithrombotics/antiplatelets; Z79.899 Other long term (current) drug therapy; Z86.16 Personal history of COVID-19; Z23 Encounter for immunization; Z11.52 Encounter for screening for COVID-19
CPT/HCPCS: 36415; 71045; 80048; 80076; 83605; 83735; 83880; 84484; 85025; 85610; 87040; 87428; 90656; 93005; 94760; 96365; 96366; 96375; 99285; J0696; J2405; J2919; J3010; J3475; J7030; J7614; J7644